=== PATIENT | male | born 1945 | race Caucasian/White ===

== ENCOUNTER 2019-11-15 16:57 | Inpatient (IN) | payer OTHER ==
[~2019-11-15] VITALS: Ht 177.8 cm; Wt 136.2 kg
[2019-11-15] MEDS ORDERED: ACIDOPHILUS1 EAC3 PO (17:15)
[2019-11-15] MEDS ORDERED: Atarax10 MG PO (17:15)
[2019-11-15] MEDS ORDERED: AMLO10 PO (17:15)
[2019-11-15] MEDS ORDERED: Aspirin EC81 MG PO (17:16)
[2019-11-15] MEDS ORDERED: ZYRTEC10 M2 PO (17:16)
[2019-11-15] MEDS ORDERED: ATOR80 PO (17:16)
[2019-11-15] MEDS ORDERED: CLOB.05TO (17:17)
[2019-11-15] MEDS ORDERED: Vitamin D2000 UNIT PO (17:17)
[2019-11-15] MEDS ORDERED: CYCL10 PO (17:18)
[2019-11-15] MEDS ORDERED: BENADRYL25 MG PO (17:19)
[2019-11-15] MEDS ORDERED: HYDR10 PO (17:20)
[2019-11-15] MEDS ORDERED: FLUT.05NI (17:20)
[2019-11-15] MEDS ORDERED: FURO40 PO (17:20)
[2019-11-15] MEDS ORDERED: Isosorbide Mono30 MG PO (17:21)
[2019-11-15] MEDS ORDERED: HYDR1TAB94 PO (17:21)
[2019-11-15] MEDS ORDERED: EUTHYROX88 MCG PO (17:22)
[2019-11-15] MEDS ORDERED: METO100ER PO (17:22)
[2019-11-15] MEDS ORDERED: CENTRUM SILVER1 EAC2 PO (17:22)
[2019-11-15] MEDS ORDERED: MAGNESIUM OXID500 MG PO (17:22)
[2019-11-15] MEDS ORDERED: OMEP20ER PO (17:23)
[2019-11-15] MEDS ORDERED: SODBIC650 PO (17:23)
[2019-11-15] MEDS ORDERED: DOCU100 PO (17:24)
[2019-11-15] MEDS ORDERED: TERA5 PO (17:24)
[2019-11-15 17:37] LABS: BASOPHILS ABSOLUTE AUTO 0.02 K/mm3 (0.00-0.23); BASOPHILS PERCENT AUTO 0 % (0-2); EOSINOPHILS ABSOLUTE AUTO 0.01 K/mm3 (0.00-0.68); EOSINOPHILS PERCENT AUTO 0 % (0-6); Hematocrit 32.4 % (37.0-53.0); Hemoglobin 10.4 g/dL (13.5-17.5); IMMATURE GRAN ABSOLUTE AUTO 0.08 K/mm3 (0.00-0.10); IMMATURE GRAN PERCENT AUTO 1 % (0-1); LYMPHOCYTES ABSOLUTE AUTO 0.59 K/mm3 (0.84-5.20); LYMPHOCYTES PERCENT AUTO 5 % (21-46); MONOCYTES ABSOLUTE AUTO 0.74 K/mm3 (0.16-1.47); MONOCYTES PERCENT AUTO 7 % (4-13); Mean Corpuscular HGB 29.3 pg (26.0-34.0); Mean Corpuscular HGB Conc 32.1 g/dL (31.5-36.5); Mean Corpuscular Volume 91 fL (80-100); Mean Platelet Volume 11.5 fL (9.1-12.4); NEUTROPHILS ABSOLUTE AUTO 9.86 K/mm3 (1.96-9.15); NEUTROPHILS PERCENT AUTO 87 % (41-73); Platelet Count 150 K/mm3 (150-400); RDW Coefficient Variation 12.8 % (11.7-14.2); RDW Standard Deviation 42.2 fL (35.1-46.3); Red Blood Cell Count 3.55 M/mm3 (4.30-5.90)
[2019-11-15 17:55] LABS: Alanine Aminotransfer (ALT/SGP 19 U/L (12-78); Albumin, Blood 3.2 g/dL (3.4-5.0); Albumin/Globulin Ratio 0.8 (0.8-1.8); Alk Phos 81 U/L (50-136); Anion Gap 9 mmol/L (6-16); Aspartate Aminotrans (AST/SGOT 8 U/L (12-37); Bilirubin, Total 0.3 mg/dL (0.1-1.0); Blood Urea Nitrogen 45 mg/dL (8-24); Bun/Creatinine Ratio 17.1 (12.0-20.0); CO2, Blood 21 mmol/L (21-32); Calcium, Blood 8.5 mg/dL (8.5-10.1); Chloride, Blood 112 mmol/L (98-108); Creatinine, Blood 2.63 mg/dL (0.60-1.20); Globulin, Blood 4.1 g/dL (2.2-4.0); Glomerular Filtration Rate 25 (60-); Glucose, Blood 162 mg/dL (70-99); Potassium, Blood 4.6 mmol/L (3.5-5.5); Sodium, Blood 142 mmol/L (136-145); Total Protein, Blood 7.3 g/dL (6.4-8.2); Troponin I <0.015 ng/mL (0.000-0.040)
[2019-11-15 19:06] LABS: Base Excess Venous -5.1 mmol/L; Bicarbonate Venous 20.7 mmol/L (24.0-30.0); PCO2 Venous 35.7 mmHg (38-42); PO2 Venous 99.8 mmHg (38-42); pH Blood Venous 7.36 (7.34-7.37)
[2019-11-15 19:34] LABS: Source, Urine Voided
[2019-11-15 19:38] LABS: Appearance, Urine Clear (Clear); Bilirubin, Urine Neg (Neg); Blood, Urine 1+ (Neg); Color, Urine Yellow (P-Yellow); Glucose Qualitative, Urine Neg (Neg); Ketones, Urine Neg (Neg); Leukocyte Esterase, Urine Neg (Neg); Nitrite, Urine Neg (Neg); Protein, Urine 4+ (Neg); Specific Gravity, Urine 1.015 (1.003-1.022); Urobilinogen, Urine NORM (Normal)
[2019-11-15 20:05] LABS: Bacteria Mod /hpf; Red Blood Cells, Urine 0-2 /hpf (0-2); Squamous Epithelial Cells Few /hpf (Few)
[2019-11-15 23:22] LABS: Influenza A Negative (NEGATIVE); Influenza B Negative (NEGATIVE)
[2019-11-16 04:25] LABS: BASOPHILS ABSOLUTE AUTO 0.02 K/mm3 (0.00-0.23); BASOPHILS PERCENT AUTO 0 % (0-2); EOSINOPHILS PERCENT AUTO 0 % (0-6); Hematocrit 29.9 % (37.0-53.0); Hemoglobin 9.4 g/dL (13.5-17.5); IMMATURE GRAN ABSOLUTE AUTO 0.16 K/mm3 (0.00-0.10); IMMATURE GRAN PERCENT AUTO 1 % (0-1); LYMPHOCYTES ABSOLUTE AUTO 0.55 K/mm3 (0.84-5.20); LYMPHOCYTES PERCENT AUTO 5 % (21-46); MONOCYTES ABSOLUTE AUTO 0.61 K/mm3 (0.16-1.47); MONOCYTES PERCENT AUTO 6 % (4-13); Mean Corpuscular HGB 28.9 pg (26.0-34.0); Mean Corpuscular HGB Conc 31.4 g/dL (31.5-36.5); Mean Corpuscular Volume 92 fL (80-100); Mean Platelet Volume 11.4 fL (9.1-12.4); NEUTROPHILS ABSOLUTE AUTO 9.71 K/mm3 (1.96-9.15); NEUTROPHILS PERCENT AUTO 88 % (41-73); Platelet Count 144 K/mm3 (150-400); RDW Coefficient Variation 13.2 % (11.7-14.2); RDW Standard Deviation 44.3 fL (35.1-46.3); Red Blood Cell Count 3.25 M/mm3 (4.30-5.90); White Blood Cell Count 11.05 K/mm3 (4.00-11.30)
[2019-11-16 04:50] LABS: Albumin, Blood 2.8 g/dL (3.4-5.0); Albumin/Globulin Ratio 0.7 (0.8-1.8); Bilirubin, Total 0.3 mg/dL (0.1-1.0); Bun/Creatinine Ratio 15.5 (12.0-20.0); Calcium, Blood 8.1 mg/dL (8.5-10.1); Creatinine, Blood 2.65 mg/dL (0.60-1.20); Globulin, Blood 4.1 g/dL (2.2-4.0); Potassium, Blood 4.5 mmol/L (3.5-5.5); Total Protein, Blood 6.9 g/dL (6.4-8.2)
--- NOTE | 2019-11-16 06:45 | NUR ---
SHIFT SUMMARY PT TRANSFERRED FROM ED AT BEGINNING OF SHIFT. PT IN SEVERE PAIN. PAIN MEDICATION GIVEN PER EMAR AND PHYSICIAN NOTIFIED FOR A CHANGE IN PAIN MEDICATION. PT REPORTS PAIN RELIEF WITH MEDICATIONS ORDERED. PT REMAINS FEBRILE WITH TEMP SPIKING UP TO 102. TYLENOL GIVEN PRN, TEMP LOWRED TO 98.6. BP STABLE. PT REPORTS NO CP OR PRESSURE. PT WORE CPAP T/O NIGHT. OXYGEN SATURATION REMAINED ABOVE 92%. PT ALERT AND ORIENTED. WILL CONTINUE TO MONITOR UNTIL REPORT GIVEN TO DAYSHIFT RN.
--- NOTE | 2019-11-16 08:30 | NUR ---
ASSUMED CARE OF PT AT 0700. REPORT FROM SARAI/ESTELITA BOONE. PT RESTING IN BED. A&OX 3. ANSWERS QUESTIONS APPROPRIATELY. FOLLOWS COMMANDS. PT C/O 12/05 BACK PAIN, STATES IT FEELS LIKE HIS CHRONIC PAIN, ONLY MORE SEVERE. MEDICATED PER EMAR ORDERED. PT WEARING HOME CPAP. INCREASED SOB AND WOB WHEN TAKEN OFF. PT SPEAKING IN SHORT SENTANCES. LABORED RESP. ENCOURAGED PT TO WEAR CPAP WHEN NOT EATING OR DRINKING. LUNGS DIMINISHED IN BASES. NON PRODUCTIVE COUGH. ABD ROUND, SOFT, NON TENDER. REDNESS AND WARMTH TO RLE. PPP. PT STATES THIS HAS BEEN GOING ON FOR "MONTHS." MEDICATED FOR FEVER c TYLENOL. VSS. WILL CONTINUE TO MONITOR.
--- NOTE | 2019-11-16 15:03 | NUR ---
STATUS CHANGE PT STATUS CHANGED TO MED c TELE THIS SHIFT. PT HAD ONE TEMP, 104.3, RESOLVED c TYLENOL 650 MG PO. MEDICATED PER EMAR FOR BACK PAIN. PT REPORTS ADEQUATE RELIEF. VSS. U/S TO R/O DVT TO RLE COMPLETE. DIET ADVANCED TO ADA. TOLERATED WELL. PT CONTINUES TO HAVE INCREASED WOB WHEN REPOSITIONING OR USING URINAL. RESTS COMFORTABLY WHEN NOT EXERTING SELF. REPORT TO SOPHY BOONE. PT TRANSFERRED TO MEDICAL FLOOR. ALL BELONGINGS SENT c PT.
--- NOTE | 2019-11-16 18:32 | NUR ---
SHIFT SUMMARY. PCU TRANSFER TO MEDICAL FLOOR TODAY. A&OX4, AWARE OF LIMITATIONS, USES URINAL INDEPENDENTLY. PT DENIES N/V. PT REPORTED CHRONIC BACK PAIN, PRN FENTANYL GIVEN, PT REPORTS SOME RELIEF. HEAT PAD OFFERED, PT ACCEPTED. PT REPORTS SOB WITH MINIMAL EXERTION, PT HAS BEEN IN BED SINCE TRANSFER. NO OTHER CHANGES OR CONCERNS.
--- NOTE | 2019-11-16 22:43 | NUR ---
FAMILY REQUEST CALL FROM PROVIDER PT DAUGHTER DAVID REQUESTING TO HAVE PROVIDER CALL HER WITH UPDATE AND ANSWER SOME CONCERNS.
--- NOTE | 2019-11-17 04:16 | NUR ---
MULTIPLE WIRE SAWYER SUMMARY PT BEGAN SHIFT W C/O BACK PAIN SO HE WAS GIVEN MEDICATION PER EMAR W BROUGHT MUCH RELIEF. PT HAS HAD CPAP ON ALL NIGHT W O2 SAT >89. PT HAD FEVER OF 101.9 AND WAS GIVEN TYLENOL AND BROUGHT IT DOWN. PT IS WEAK AND REQUIRES 2 PERSON ASSIST TO MOVE IN BED. PT SLEPT MOST OF THE NIGHT AND USED CALL LIGHT APPROPRIATELY FOR ASSISTAANCE TO USE URINAL.
[2019-11-17 05:00] LABS: BASOPHILS ABSOLUTE AUTO 0.02 K/mm3 (0.00-0.23); BASOPHILS PERCENT AUTO 0 % (0-2); Hematocrit 31.2 % (37.0-53.0); Hemoglobin 9.9 g/dL (13.5-17.5); LYMPHOCYTES ABSOLUTE AUTO 0.83 K/mm3 (0.84-5.20); LYMPHOCYTES PERCENT AUTO 9 % (21-46); MONOCYTES ABSOLUTE AUTO 0.53 K/mm3 (0.16-1.47); MONOCYTES PERCENT AUTO 6 % (4-13); Mean Corpuscular HGB 29.5 pg (26.0-34.0); Mean Corpuscular HGB Conc 31.7 g/dL (31.5-36.5); Mean Corpuscular Volume 93 fL (80-100); Mean Platelet Volume 11.7 fL (9.1-12.4); Platelet Count 142 K/mm3 (150-400); RDW Coefficient Variation 13.3 % (11.7-14.2); RDW Standard Deviation 45.5 fL (35.1-46.3); Red Blood Cell Count 3.36 M/mm3 (4.30-5.90); White Blood Cell Count 9.52 K/mm3 (4.00-11.30)
[2019-11-17 05:16] LABS: Albumin, Blood 2.7 g/dL (3.4-5.0); Anion Gap 7 mmol/L (6-16); Blood Urea Nitrogen 43 mg/dL (8-24); Bun/Creatinine Ratio 16.4 (12.0-20.0); CO2, Blood 23 mmol/L (21-32); Calcium, Blood 8.9 mg/dL (8.5-10.1); Chloride, Blood 109 mmol/L (98-108); Creatinine, Blood 2.62 mg/dL (0.60-1.20); Glomerular Filtration Rate 26 (60-); Glucose, Blood 126 mg/dL (70-99); Phosphorus, Blood 3.9 mg/dL (2.5-4.9); Potassium, Blood 4.4 mmol/L (3.5-5.5); Sodium, Blood 139 mmol/L (136-145)
[2019-11-17 05:30] LABS: EOSINOPHILS ABSOLUTE AUTO 0.02 K/mm3 (0.00-0.68); EOSINOPHILS PERCENT AUTO 0 % (0-6); IMMATURE GRAN ABSOLUTE AUTO 0.06 K/mm3 (0.00-0.10); IMMATURE GRAN PERCENT AUTO 1 % (0-1); NEUTROPHILS ABSOLUTE AUTO 8.06 K/mm3 (1.96-9.15); NEUTROPHILS PERCENT AUTO 85 % (41-73)
--- NOTE | 2019-11-17 19:35 | NUR ---
SHIFT SUMMARY. A&OX4, SBA TO BATHROOM WITH FWW. PT REPORTS SOB WITH EXERTION, ON RA, LUNGS CLEAR AND DIM IN THE BASES. PT WITH CHRONIC BACK PAIN, PT STARTED ON NORCO HOME DOSE WITH GOOD EFFECT. DENIES N/V. CONTINUES WITH REDNESS TO RLL, PT REPORTS MILD PAIN TO RLL WELL THAT IS MANAGED WITH CURRENT ORDERS. NO OTHER CHANGES OR CONCERNS.
[2019-11-18 04:59] LABS: BASOPHILS ABSOLUTE AUTO 0.02 K/mm3 (0.00-0.23); BASOPHILS PERCENT AUTO 0 % (0-2); EOSINOPHILS ABSOLUTE AUTO 0.15 K/mm3 (0.00-0.68); EOSINOPHILS PERCENT AUTO 2 % (0-6); Hematocrit 27.6 % (37.0-53.0); Hemoglobin 8.8 g/dL (13.5-17.5); IMMATURE GRAN ABSOLUTE AUTO 0.04 K/mm3 (0.00-0.10); IMMATURE GRAN PERCENT AUTO 1 % (0-1); LYMPHOCYTES ABSOLUTE AUTO 0.85 K/mm3 (0.84-5.20); LYMPHOCYTES PERCENT AUTO 13 % (21-46); MONOCYTES ABSOLUTE AUTO 0.64 K/mm3 (0.16-1.47); MONOCYTES PERCENT AUTO 10 % (4-13); Mean Corpuscular HGB 29.3 pg (26.0-34.0); Mean Corpuscular HGB Conc 31.9 g/dL (31.5-36.5); Mean Corpuscular Volume 92 fL (80-100); Mean Platelet Volume 11.7 fL (9.1-12.4); NEUTROPHILS ABSOLUTE AUTO 4.69 K/mm3 (1.96-9.15); NEUTROPHILS PERCENT AUTO 74 % (41-73); Platelet Count 140 K/mm3 (150-400); RDW Coefficient Variation 13.2 % (11.7-14.2); White Blood Cell Count 6.39 K/mm3 (4.00-11.30)
[2019-11-18 05:16] LABS: Albumin, Blood 2.4 g/dL (3.4-5.0); Anion Gap 9 mmol/L (6-16); Blood Urea Nitrogen 51 mg/dL (8-24); Bun/Creatinine Ratio 19.3 (12.0-20.0); CO2, Blood 22 mmol/L (21-32); Calcium, Blood 8.4 mg/dL (8.5-10.1); Chloride, Blood 109 mmol/L (98-108); Creatinine, Blood 2.64 mg/dL (0.60-1.20); Glomerular Filtration Rate 25 (60-); Glucose, Blood 121 mg/dL (70-99); Phosphorus, Blood 3.6 mg/dL (2.5-4.9); Potassium, Blood 3.9 mmol/L (3.5-5.5); Sodium, Blood 140 mmol/L (136-145)
--- NOTE | 2019-11-18 07:35 | NUR ---
SHIFT SUMMARY AOX4. VSS. DENIES DYSPNEA OR NAUSEA. REPORTS PAIN IN RLE, MEDICATED 1X c NORCO & PT REPORTED RELIEF. RLE IS RED, WARM TO TOUCH & HAS +2 EDEMA. WORE CPAP WHILE ASLEEP. PT TOOK SHOWER LAST NIGHT c MINIMAL ASSIST. CALL LIGHT IN REACH.
--- NOTE | 2019-11-18 18:23 | NUR ---
SHIFT SUMMARY PT IS AOX4. PT C/O FEELING HOT AND ROOM TEMP WAS TURNED DOWN. TEMP WAS ELEVATED AT 99.0 BUT IMPROVED WITH ROOM TEMP AND COLD TOWEL ON FOREHEAD. PT WORKED WITH PT TODAY. PT STATED PT STRUGGLED TO CATCH BREATH AND NEEDED TO REST AFTER TRANSFERRING. NO ACUTE CHANGES THIS SHIFT. ABX INFUSED X2 THIS SHIFT. PT IN BED, CALL LIGHT IN REACH, BED IN LOW POSITION.
--- NOTE | 2019-11-19 07:48 | NUR ---
SHIFT SUMMARY AOX4. VSS. TELE NSR c PVCS @72. DENIES N/V. REPORTED PAIN IN RLE, MEDICATED 1X c NORCO-STATES RELIEF. RLE IS WARM, RED, HAS +2 PITTING EDEMA. LUNGS SOUND DIM T/O. WORE CPAP T/O NIGHT. THIS AM PT STATES HE FEELS "SOB & WHEEZY" RR 18, SPO2 @96% ON RA. PT STATED HE USUALLY USES BREATHING TX PRN @HOME, HAD RT ASSESS PT & THEY SUGGESTED ALBUTEROL INH, NOTIFIED DR NORMAN & HE ORDERED ALBUTEROL INH Q4P. CALL LIGHT IN REACH.
--- NOTE | 2019-11-19 17:15 | NUR ---
SHIFT SUMMARY PT IS AOX4. PT IS SOB WITH EXERTION WHICH IMPROVES WITH REST. PT REPORTS OCCASIONAL PAIN IN THE RLE, BUT MOSTLY IF HE TRIES TO WALK ON THE EXTREMITY. PT HAS BEEN RESTING IN BED THIS SHIFT AND OCCASIONALY SITTING AT THE EDGE OF THE BED. PT HAS NOT EXHIBITED AN ELEVATED TEMP THIS SHIFT. OT ATTEMPTED TO WORK WITH PT THIS ISAI. PT DAUGHTER VISITED IN THE ROOM. TELE DC'D THIS SHIFT. RT WORKED WITH PT AND PROVIDED AN EHALATION DEVICE TO REMOVE ANY MUCOUS BUILD UP, BUT PT HAS HAD RARE COUGH AND NONPRODUCTIVE. RLE IS ELEVATED ON A PILLOW. PT IS IN BED, LOW POSITION, WITH CALL LIGHT IN REACH.
--- NOTE | 2019-11-19 19:05 | NUR ---
ASSUMED CARE RECEIVED REPORT FROM MELY SUE. ASSUMED CARE OF PT. RESTING COMFORTABLY AT THIS TIME, NO S/S ACUTE DISTRESS NOTED. REPORTS MINIMAL PAIN 3/10 TO RLE, STATES IT'S TOLERABLE LONG HE DOESN'T MOVE MUCH. DENIES NEEDS AT THIS TIME. CALL LIGHT, POSSESSIONS IN REACH, WILL CONTINUE TO MONITOR AND PROVIDE CARE NEEDED T/O NIGHT.
--- NOTE | 2019-11-20 04:21 | NUR ---
SHIFT SUMMARY PT ASLEEP AT THIS TIME, HAS HAD NO ACUTE EVENTS T/O NIGHT. O2 SATS STABLE ON CPAP, AFTER ADJUSTMENTS PER RT. RESPS E/U. PT UP TO BATHROOM WITH FWW/GB AND SBA T/O NIGHT, TOLERATES WELL, BUT MOVES SLOW D/T RLE SWELLING AND PAIN. PAIN MANAGED WITH MEDS PER EMAR, EFFECTIVE. PT DENIES NEEDS AT THIS TIME. CALL LIGHT, POSSESSIONS IN REACH. WILL CONTINUE TO MONITOR UNTIL DAY RN ASSUMES CARE.
--- NOTE | 2019-11-20 19:05 | NUR ---
ASSUMED CARE RECEIVED REPORT FROM MELY SUE. ASSUMED CARE OF PT. RESTING COMFORTABLY, NO S/S ACUTE DISTRESS NOTED. DENIES NEEDS AT THIS TIME, CALL LIGHT, POSSESSIONS IN REACH, WILL CONTINUE TO MONITOR.
--- NOTE | 2019-11-20 19:22 | NUR ---
SHIFT SUMMARY PT IS AOX4 AND PLEASANT. PT MEDICATED FOR PAIN X4 THIS SHIFT FOR RLE PAIN. PT SOB AFTER SHOWER DONE. PT/OT IN WITH PT TODAY WHO TOLERATED EXERCISES/STRETCHES WELL. PT POTENTIAL DC TOMORROW DEPENDING ON CELLULITIS IMPROVEMENT. NO ACUTE CHANGES THIS SHIFT. PT IN BED, LOW POSITION, CALL LIGHT IN REACH.
--- NOTE | 2019-11-21 07:34 | NUR ---
SHIFT SUMMARY PT HAS HAD NO ACUTE CHANGES IN CONDITION T/O NIGHT, VSS, O2 SATS STABLE ON CPAP. EDEMA TO RLE IMPROVING, REDNESS AND WARMTH DECREASING. PAIN MANAGED WITH MEDS PER EMAR X2. PT APPEARS COMFORTABLE AT THIS TIME. CALL LIGHT, POSSESSIONS IN REACH, REPORT GIVEN TO MELY MORTON.
[2019-11-21] MEDS ORDERED: NYSTOP15 GM TOP (11:13)
[2019-11-21] MEDS ORDERED: CEPH500 PO (11:20)
--- NOTE | 2019-11-21 12:53 | NUR ---
PT WOKE FOR SHIFT REPORT. RESTING QUIETLY ON C-PAP. CELLULITIS TO R LEG; REDNESS, SWELLING, AND PAIN. NORCO PRN NEEDED. PT UP WITH SBA USING FWW TO GO TO BTM. DENIED NEEDS. ASSISTED PT TO ELEVATE RLE ON 2 PILLOWS, PER PT REQUEST. DR HICKS IN TO SEE PT. 3 VIEW XRAY ORDERED FOR R FOOT. D/C ORDERS PLACED. [facility] TO [facility], PER PT REQUEST. PT DECLINED SCRIPT FOR NORCO, INFORMING DR HICKS THAT HE HAD SOME AT HOME ALREADY FROM [place]. DAUGHTER CALLED TO DISCUSS D/C ORDERS. REVIEWED AND DISCUSSED. DAUGHTER REQUESTED NORCO SCRIPT FROM DR HICKS. DISCUSSED AGAIN WITH DR HICKS. PT TO SEE PCP FOR F/U AND OBTAIN ADDITIONAL [facility]CO [facility] IF NEED[facility]. D/C ORDERS DISCUSSED WITH PT; VERBALIZED UNDERSTANDING. PT ABLE TO DRESS SELF. IV SITE D/C'D WNL'S. PT ASSISTED OUT TO DAUGHTERS CAR VIA W/C.
== END 2019-11-21 12:33 | disposition home or self-care (01) | DRG 872 ==
LOC: ER 16:57 → MEDS 21:44 → ERHOLD 21:44 → PCU 23:05 → MEDS 11-16 14:58
PROVIDERS: Emergency Medicine; Family Medicine; ADMIT Internal Medicine
DX: A41.9 Sepsis, unspecified organism (principal); L03.115 Cellulitis of right lower limb; N17.9 Acute kidney failure, unspecified; N18.4 Chronic kidney disease, stage 4 (severe); Z68.41 Body mass index [BMI] 40.0-44.9, adult; I12.9 Hypertensive chronic kidney disease with stage 1 through stage 4 chronic kidney disease, or unspecified chronic kidney disease; E11.22 Type 2 diabetes mellitus with diabetic chronic kidney disease; D63.1 Anemia in chronic kidney disease; D69.6 Thrombocytopenia, unspecified; E03.9 Hypothyroidism, unspecified; E66.01 Morbid (severe) obesity due to excess calories; E78.5 Hyperlipidemia, unspecified; J44.9 Chronic obstructive pulmonary disease, unspecified; K21.9 Gastro-esophageal reflux disease without esophagitis; M54.5 Low back pain; N40.0 Benign prostatic hyperplasia without lower urinary tract symptoms; R65.20 Severe sepsis without septic shock; R10.9 Unspecified abdominal pain; G47.33 Obstructive sleep apnea (adult) (pediatric); M19.071 Primary osteoarthritis, right ankle and foot; Z20.828 Contact with and (suspected) exposure to other viral communicable diseases
CPT/HCPCS: 36415; 71045; 73630; 74176; 76705; 80053; 80069; 81001; 82803; 82947; 83605; 83690; 83880; 84484; 85025; 87040; 87086; 87804; 93005; 93010; 93971; 94660; 94667; 94762; 96361; 96365; 96375; 96376; 97110; 97116; 97161; 97165; 97530; 99285-25; A9270; A9270-GY; J0690; J0696; J1170; J1644; J2405; J3010; J7030; J7050; U0002

== ENCOUNTER 2020-07-28 10:46 | Inpatient (IN) | payer OTHER, MEDICARE ==
[~2020-07-28] VITALS: Ht 177.8 cm; Wt 147.0 kg
[~2020-07-28 10:46] MED LIST: BENADRYL25 MG PO; CEPH500 PO; CLOB.05TO; CYCL10 PO; FLUT.05NI; FURO40 PO; HYDR1TAB94 PO; NYSTOP15 GM TOP
[2020-07-28 11:11] LABS: BASOPHILS ABSOLUTE AUTO 0.02 K/mm3 (0.00-0.23); BASOPHILS PERCENT AUTO 0 % (0-2); EOSINOPHILS PERCENT AUTO 1 % (0-6); Hematocrit 36.9 % (37.0-53.0); Hemoglobin 11.9 g/dL (13.5-17.5); IMMATURE GRAN ABSOLUTE AUTO 0.03 K/mm3 (0.00-0.10); IMMATURE GRAN PERCENT AUTO 0 % (0-1); LYMPHOCYTES ABSOLUTE AUTO 0.42 K/mm3 (0.84-5.20); LYMPHOCYTES PERCENT AUTO 4 % (21-46); MONOCYTES ABSOLUTE AUTO 0.63 K/mm3 (0.16-1.47); MONOCYTES PERCENT AUTO 6 % (4-13); Mean Corpuscular HGB 29.3 pg (26.0-34.0); Mean Corpuscular HGB Conc 32.2 g/dL (31.5-36.5); Mean Corpuscular Volume 91 fL (80-100); Mean Platelet Volume 10.9 fL (9.1-12.4); NEUTROPHILS ABSOLUTE AUTO 8.67 K/mm3 (1.96-9.15); NEUTROPHILS PERCENT AUTO 88 % (41-73); Platelet Count 192 K/mm3 (150-400); RDW Coefficient Variation 12.9 % (11.7-14.2); Red Blood Cell Count 4.06 M/mm3 (4.30-5.90); White Blood Cell Count 9.87 K/mm3 (4.00-11.30)
[2020-07-28 11:38] LABS: Albumin, Blood 3.5 g/dL (3.4-5.0); Albumin/Globulin Ratio 0.9 (0.8-1.8); Bilirubin, Total 0.4 mg/dL (0.1-1.0); Bun/Creatinine Ratio 21.2 (12.0-20.0); Calcium, Blood 8.5 mg/dL (8.5-10.1); Creatinine, Blood 3.07 mg/dL (0.60-1.20); Globulin, Blood 3.9 g/dL (2.2-4.0); Potassium, Blood 5.7 mmol/L (3.5-5.5); Total Protein, Blood 7.4 g/dL (6.4-8.2)
[2020-07-28 11:40] LABS: Source, Urine Catheter
[2020-07-28 11:46] LABS: Appearance, Urine Clear (Clear); Bilirubin, Urine Neg (Neg); Blood, Urine Neg (Neg); Color, Urine Yellow (P-Yellow); Glucose Qualitative, Urine Neg (Neg); Ketones, Urine Neg (Neg); Leukocyte Esterase, Urine Neg (Neg); Nitrite, Urine Neg (Neg); Protein, Urine 3+ (Neg); Specific Gravity, Urine 1.015 (1.003-1.022); Urobilinogen, Urine NORM (Normal)
[2020-07-28 11:57] LABS: Free Thyroxine 1.06 ng/dL (0.70-1.60); Thyroid Stimulating Hormone 2.17 uIU/mL (0.360-4.800)
[2020-07-28 12:39] LABS: Hyaline Casts 0-2 /lpf (0-2); Red Blood Cells, Urine 0-2 /hpf (0-2)
[2020-07-28 12:40] LABS: Bacteria Not Seen /hpf; Squamous Epithelial Cells Rare /hpf (Few)
[2020-07-28] MEDS ORDERED: FURO40 PO (13:04)
[2020-07-28] MEDS ORDERED: PRED20 PO (13:07)
[2020-07-28] MEDS ORDERED: OXYC5 PO (13:07)
[2020-07-28 14:20] LABS: SARS-Cov-2 (COVID-19) PCR, MMC NEGATIVE (NEGATIVE)
[2020-07-28 16:51] LABS: Magnesium, Blood 1.9 mg/dL (1.6-2.4); Phosphorus, Blood 3.4 mg/dL (2.5-4.9)
--- NOTE | 2020-07-28 17:59 | NUR ---
SUMMARY PT ADMITTED FROM THE ER FOR KIDNEY INJURY, PT ABLE TO STAND AND TRANSFER SELF FROM GURNEY TO THE BED, PT ABLE TO TAKE PILLS WHOLE WITH WATER, IS ABLE TO STAND AND WALK TO THE BATHROOM WITH THE WALKER AND MIN ASSIST, PT DENIES ANY PAIN OR SOB, FAINT EXP WHEEZE HEARD, PT REPORTS HE WEARS A CPAP AT NIGHT, VSS, WILL CONT TO MONITOR
[2020-07-29 02:03] LABS: Hemoglobin 10.1 g/dL (13.5-17.5); Mean Corpuscular HGB 28.9 pg (26.0-34.0); Mean Corpuscular HGB Conc 31.6 g/dL (31.5-36.5); Mean Corpuscular Volume 91 fL (80-100); Mean Platelet Volume 10.9 fL (9.1-12.4); Platelet Count 166 K/mm3 (150-400); RDW Coefficient Variation 13.2 % (11.7-14.2); RDW Standard Deviation 43.5 fL (35.1-46.3); White Blood Cell Count 10.86 K/mm3 (4.00-11.30)
[2020-07-29 02:21] LABS: Albumin, Blood 2.7 g/dL (3.4-5.0); Albumin/Globulin Ratio 0.8 (0.8-1.8); BAND PERCENT MAN 24 % (0-8); BASOPHILS PERCENT MAN 0 % (0-2); Bilirubin, Total 0.3 mg/dL (0.1-1.0); Bun/Creatinine Ratio 17.6 (12.0-20.0); Calcium, Blood 8.1 mg/dL (8.5-10.1); Creatinine, Blood 3.57 mg/dL (0.60-1.20); EOSINOPHILS PERCENT MAN 0 % (0-6); Globulin, Blood 3.5 g/dL (2.2-4.0); LYMPHOCYTES ABSOLUTE MAN 0.32 K/mm3 (0.84-5.20); LYMPHOCYTES PERCENT MAN 3 % (21-46); MONOCYTES ABSOLUTE MAN 0.32 K/mm3 (0.16-1.47); MONOCYTES PERCENT MAN 3 % (4-13); Magnesium, Blood 1.8 mg/dL (1.6-2.4); Potassium, Blood 5.3 mmol/L (3.5-5.5); SEG NEUTROPHILS PERCENT MAN 70 % (41-73); TOTAL CELLS COUNTED 100; Total Protein, Blood 6.2 g/dL (6.4-8.2)
--- NOTE | 2020-07-29 05:27 | NUR ---
SHIFT SUMMARY PT IS A 74 Y/O MALE, ADMITTED FOR ACUTE ON CHRONIC KIDNEY INJURY. HE IS A&O X 4, [place] [facility] [place] PT HAD AN ELEVATED K+ ON RECHECK AT 6.3. HOSPITALIST DR LAGOS WAS INFORMED. PT WAS GIVEN 5 UNIT REGULAR INSULIN, 1/2 AMP D50 AND 1 G CALCIUM GLUCONATE. K+ CAME DOWN TO 5.3. PT RAN FEVER DURING THE NIGHT AT 102.9, CAME DOWN TO 98.1 AFTER PRN TYLENOL. ALL OTHER VITALS STABLE. PT RECEIVING NS @ 125 ML/HR. NO OTHER ACUTE CHANGES IN PT CONDITION NOTED DURING THE NIGHT. WILL CONTINUE TO MONITOR AND TREAT PER EMAR UNTIL HAND OFF TO DAY SHIFT RN.
--- NOTE | 2020-07-29 14:36 | NUR ---
PT TRANSFERED TO PCU [address] FRANCOIS'S ORDER. CALL WAS PLACED TO RECIEVING NURSE PRIOR TO DISCHARGE. PT WAS COOPERATIVE OF CARE AND A ONE PERSON TO BEDSIDE COMMODE. PT TREATED FOR BACK PAIN PER EMAR. ALL BELONGINGS TAKEN WITH PT TO NEW ROOM.
[2020-07-29 15:48] LABS: CPK Creatine Kinase 116 U/L (39-308)
[2020-07-29 15:54] LABS: C-REACTIVE PROTEIN, EXT RANGE >19.000 mg/dL (0.000-0.300)
--- NOTE | 2020-07-29 17:24 | NUR ---
SHIFT SUMMARY NO ACUTE EVENTS SINCE ARRIVAL TO UNIT, VSS. PATIENT IS ALERT AND ORIENTED. WORKED WITH PT/OT. PATIENT WAS SHORT OF BREATH DURING THERAPY, THIS RN WAS CALLED BY OT D/T PATIENT'S O2 SATURATION DECREASING TO HIGH 80S WITH AMBULATION. 2L VIA NASAL CANNULA APPLIED, PATIENT REMAINED IN LOW 90S ON 2L NC FOR REST OF SHIFT. PATIENT COMPLAINS OF FEELING COLD, PATIENT APPEARS TO BE SHIVERING AT TIMES. BLANKET PROVIDED. NO FEVER NOTED SINCE ARRIVAL TO UNIT. PATIENT X1 ASSIST TO BEDSIDE COMMODE.
[2020-07-30 04:18] LABS: Hemoglobin 10.1 g/dL (13.5-17.5); Mean Corpuscular HGB 29.4 pg (26.0-34.0); Mean Corpuscular HGB Conc 31.6 g/dL (31.5-36.5); Mean Corpuscular Volume 93 fL (80-100); Platelet Count 151 K/mm3 (150-400); RDW Coefficient Variation 13.2 % (11.7-14.2); Red Blood Cell Count 3.43 M/mm3 (4.30-5.90); White Blood Cell Count 7.64 K/mm3 (4.00-11.30)
[2020-07-30 04:48] LABS: Bun/Creatinine Ratio 15.8 (12.0-20.0); Creatinine, Blood 3.87 mg/dL (0.60-1.20); Potassium, Blood 4.9 mmol/L (3.5-5.5)
--- NOTE | 2020-07-30 06:04 | NUR ---
PT HAD X2 EPISODES OF CHRONIC LOWER BACK PAIN. BECAME VERY ANXIOUS AND SOB. PAIN RELIEVED W/ PO ROXICODONE AND IV FENTANYL. REPOSITIONED Q2HRS. PT COOPERATIVE AND PLEASANT. SWALLOWS MEDS WITH NO DIFFICULTIES. VOIDING LARGE AMOUNTS OF URINE. DENIES QUESTIONS CONCERNS AT THIS TIME,
--- NOTE | 2020-07-30 16:15 | NUR ---
NO ACUTE EVENTS THIS SHIFT, VSS. PATIENT ALERT AND ORIENTED, CALLS APPRIOPRIATELY. PATIENT WAS UP OUT OF BED WITH SBA FOR LINE MANAGEMENT TO RECLINER FOR MEALS. WORKED WITH PT THIS SHIFT, UP WITH WALKER. PATIENT COMPLAINED OF LOW BACK PAIN, MEDICATED PER EMAR. PATIENT ON ROOM AIR TO 1 L VIA NASAL CANNULA TO MAINTAIN O2 SATS IN LOW 90S. REPORT GIVEN TO MICHAEL BOONE ON MEDICAL.
--- NOTE | 2020-07-30 16:56 | NUR ---
1620 PT ARRIVED TO UNIT FROM PCU, STAND PIVOT TRANSFER INTO BED. ORIENTED TO ROOM. VSS. PT REPORTS TOLERABLE PAIN IN HIS LOWER BACK AND LLE, 5/10 AT THIS TIME. LUNG SOUNDS CLEAR, S1 S2 HEARD. PT DENIES COUGH AND SOB. PT USING 1L O2 PRN, SATS 96% 1L VIA NC. LLE ERYTHEMA & SWELLING NOTICED, BORDERS OF THE REDNESS HAVE BEEN OUTLINED W/ A SURGICAL MARKER. EDEMA PRESENT IN BLE. PT DENIES N/V, N/T TO ALL EXTREMITIES. 1 TO 2 PERSON ASSIST, USES BEDSIDE COMMODE. TOLERATING REGULAR DIET. WILL CONTINUE TO MONITOR. CALL LIGHT WITHIN REACH. WILL REPORT TO ONCOMING RN.
--- NOTE | 2020-07-30 18:44 | NUR ---
SHIFT SUMMARY PT A&OX4, PLEASANT AND COOPERATIVE W/ CARE. VSS. NO ACUTE EVENTS. CELLULITIS TO L LOWER LEG, ERYTHEMA & SWELLING PRESENT. OUTLINE MARKED W/ SURGICAL MARKER. PT DENIES PAIN, N/V, N/T. PT RESTING IN BED, CALL LIGHT WITHIN REACH. WILL REPORT TO ONCOMING RN.
--- NOTE | 2020-07-31 04:04 | NUR ---
SHIFT SUMMARY PT RESTED WELL T/O NIGHT. AAOX4. CPAP IN PLACE WITH CONT PULSE OXIMETRY. DENIES PAIN/NAUSEA/EMESIS. THIS SHIFT. BLE SWELLING, ELEVATED. NO ACUTE CHANGES OVER NOC SHIFT. AWAITING LAB DRAW THIS AM. IVF PER ORDERS. PT CURRENTLY RESTING WELL IN BED WITH CALL LIGHT IN REACH.
[2020-07-31 05:31] LABS: Bun/Creatinine Ratio 16.3 (12.0-20.0); Calcium, Blood 7.9 mg/dL (8.5-10.1); Creatinine, Blood 3.8 mg/dL (0.60-1.20); Potassium, Blood 4.7 mmol/L (3.5-5.5)
--- NOTE | 2020-07-31 18:07 | NUR ---
SHIFT SUMMARY PT HAS BEEN A/O X4, SBA IN ROOM. PT WORKED WITH PHYSICAL THERAPY TODAY AND WAS ABLE TO AMBULATE TO BATHROOM WITH MINIMAL ASSISTANCE. PT SAT UP IN CHAIR FOR A FEW HOURS TODAY. HAS BEEN SITTING IN CHAIR OR ON EDGE OF BED FOR MEALS. PAIN MANAGED WITH PO PAIN MED PER ORDER. PT USING CPAP WHILE ASLEEP AND 2L O2 NC PRN WHILE AWAKE; BIOX IN USE DURING THE SHIFT. PT RESTING AT THIS TIME, CALL LIGHT IN REACH.
--- NOTE | 2020-08-01 05:19 | NUR ---
SHIFT SUMMARY PT RESTED WELL THIS NOC SHIFT. AAOX4. CPAP T/O NIGHT WITH 2L O2. X1 BREATHING TX POST AMBULATION TO RESTROOM. CELLULITIS TO LLE WITH INCREASED REDNESS FROM PREVIOUS SHIFT, ELEVATED ON PILLOWS WITH SOME DECREASE IN SWELLING FROM START OF SHIFT. GOOD PO INTAKE + URINE OUTPUT. IV ABX PER ORDERS. PT CURRENTLY RESTING IN BED WITH CALL LIGHT IN REACH.
[2020-08-01 08:55] LABS: Bun/Creatinine Ratio 16.2 (12.0-20.0); Calcium, Blood 8.6 mg/dL (8.5-10.1); Creatinine, Blood 3.28 mg/dL (0.60-1.20); Potassium, Blood 4.8 mmol/L (3.5-5.5)
--- NOTE | 2020-08-01 17:20 | NUR ---
SHIFT SUMMARY PT HAS BEEN A/O X4 THIS SHIFT. HE STATES HE DID NOT SLEEP WELL LAST NIGHT AND HAS BEEN TIRED TODAY. USING CPAP WHILE SLEEPING/NAPPING AND O2 PRN WHILE AWAKE. PT TOLERATING PO INTAKE, HOWEVER HE HAS HAD DECREASED APPETITE TODAY. DR. STRINGER CONSULTED THIS SHIFT. PAIN HAS BEEN MANAGED WITH OXY PER ORDER; PT STATES THIS HAS BEEN MANAGING PAIN TO HIS SATISFACTION. PT RESTING AT THIS TIME.
--- NOTE | 2020-08-01 18:23 | NUR ---
PER [facility], PT DOES NOT MEET REQUIREMENTS FOR ARANESP TODAY, HOWEVER LABS WILL BE CHECKED IN AM AND PT CAN RECEIVE IT TOMORROW IF NEEDED.
[2020-08-02 04:41] LABS: Hematocrit 28.2 % (37.0-53.0); Hemoglobin 9.1 g/dL (13.5-17.5)
--- NOTE | 2020-08-02 04:48 | NUR ---
SHIFT SUMMARY PT RESTED INFREQUENTLY T/O NIGHT. AAOX4/ANXIOUS AT TIMES. DISCOMFORT FROM LLE DECREASED WITH X1 PO ROXICODONE THIS SHIFT. DENIES NAUSEA/EMESIS. PT STARTED ON 1 LITER FLUID RESTRICTION YESTARDAY EVENING WITH 2MG IV BUMEX PER DR STRINGER. PT UP FREQUENTLY T/O NIGHT TO BSC. IV ABX PER ORDERS. PT CURRENTLY BACK TO BED WATCHING TV WITH CPAP IN PLACE, CALL LIGHT IN REACH.
[2020-08-02 05:04] LABS: Albumin, Blood 2.3 g/dL (3.4-5.0); Anion Gap 8 mmol/L (6-16); Blood Urea Nitrogen 46 mg/dL (8-24); Bun/Creatinine Ratio 15.6 (12.0-20.0); CO2, Blood 22 mmol/L (21-32); Calcium, Blood 8.3 mg/dL (8.5-10.1); Chloride, Blood 111 mmol/L (98-108); Creatinine, Blood 2.94 mg/dL (0.60-1.20); Glomerular Filtration Rate 22 (60-); Glucose, Blood 134 mg/dL (70-99); Phosphorus, Blood 3.4 mg/dL (2.5-4.9); Potassium, Blood 4.6 mmol/L (3.5-5.5); Sodium, Blood 141 mmol/L (136-145)
--- NOTE | 2020-08-02 17:04 | NUR ---
SUMMARY NO ACUTE CHANGES T/O SHIFT. PT WORKED W/THERAPY DURING SHIFT. SAT UP IN CHAIR TWICE. NOW BACK TO BED. PT BECOMES SOB W/EXERTION. LUNGS SOUNDED DIM IN BASES BUT OTHERWISE CLEAR. REDNESS TO LLE EXTENDED PAST OUTLINED AREA. PT REPORTS EDEMA AND PAIN HAVE BOTH IMPROVED TO LLE. PT ALTERNATES BETWEEN CPAP AND 02. SATS STABLE IN 90S ON CONTINUOUS PULSE OX. CALL LIGHT IN REACH.
--- NOTE | 2020-08-02 19:05 | NUR ---
REPORT GIVEN TO ONCOMING SHIFT.
[2020-08-03 05:12] LABS: Hematocrit 30.4 % (37.0-53.0); Hemoglobin 9.7 g/dL (13.5-17.5)
[2020-08-03 05:28] LABS: Albumin, Blood 2.3 g/dL (3.4-5.0); Anion Gap 7 mmol/L (6-16); Blood Urea Nitrogen 41 mg/dL (8-24); Bun/Creatinine Ratio 14.3 (12.0-20.0); CO2, Blood 24 mmol/L (21-32); Calcium, Blood 8.6 mg/dL (8.5-10.1); Chloride, Blood 112 mmol/L (98-108); Creatinine, Blood 2.87 mg/dL (0.60-1.20); Glomerular Filtration Rate 23 (60-); Glucose, Blood 139 mg/dL (70-99); Magnesium, Blood 1.9 mg/dL (1.6-2.4); Phosphorus, Blood 3.7 mg/dL (2.5-4.9); Potassium, Blood 4.4 mmol/L (3.5-5.5); Sodium, Blood 143 mmol/L (136-145)
--- NOTE | 2020-08-03 06:25 | NUR ---
SHIFT SUMMARY PT REMAINS A/O X4 T/O SHIFT, PT REPORTS FEELING COMFORTABLE, LLE REMAINS RED AND WARM TO THE TOUCH EXTENDING PAST PREVIOUSLY DRAWN LINES THOUGH PT REPORTS IT FEELING BETTER, PT REPORTS A SLIGHT INCREASE IN PAIN WHEN I LIFTED HIS LEG TO REPOSITION THE PILLOWS BACK UNDERNEATH IT THOUGH DENIES NEED FOR PAIN MEDS AT THAT TIME. NO ACUTE EVENTS THIS SHIFT. CALL LIGHT IN REACH, WILL CTM AND REPORT TO DAY RN.
--- NOTE | 2020-08-03 12:56 | NUR ---
Palliative care consult Lorenzo is a 74 year old with a history of morbid obesity, chronic back pain, CKD, HTN, NASREEN with CPAP use, GERD, hypothyroidism. He was admitted on 07/28/20 with sepsis secondary to LE cellulitis d/t group A strep. Lorenzo is . He is currently living alone as [facility] She has been there 2 years. He is hopeful that he will be able to visit with her when he is in rehab there. He has been tested for covid and has a new powerglide IV so that he can continue his daily IV antibiotics. He has two children who live 5-10 minutes away from his home and are helpful with doing the shopping and providing assistance for him as needed. He denies any symptoms at this time. He states his LLE has decreased in redness and swelling. His LLE remains with edema and redness. He is looking forward to going to rehab and then going back home. He enjoys motorcycles and panning for gold and is hopeful that he can improve enough to get back to doing those hobbies again. He states that he has spoken with his and children about his wishes in the past. He states that "They know what they want." At this time he wishes to remain a full code. [facility] He doesn't wish to fill out a POLST at this time. Will contact the [place] to obtain a copy of his AD. He has no further question or concerns. He is not happy about the fluid restriction he is on, however he is compliant with the restriction.
--- NOTE | 2020-08-03 16:21 | NUR ---
REPORT GIVEN TO SHERIF AT [facility].
[2020-08-03 16:53] LABS: SARS-Cov-2 (COVID-19) PCR, MMC NEGATIVE (NEGATIVE)
--- NOTE | 2020-08-03 17:10 | NUR ---
FAXED COVID RESULTS TO [facility].
--- NOTE | 2020-08-03 17:14 | NUR ---
SUMMARY NO ACUTE CHANGES T/O SHIFT. PT GETTING UP INDEPENDENTLY IN ROOM TO VOID. WORKED WITH THERAPY. NEW POWERGLIDE TO LUE THIS SHIFT. REPORT GIVEN TO SHERIF AT [facility] FAXED OVER. CALL LIGHT IN REACH.
--- NOTE | 2020-08-03 17:53 | NUR ---
PT LEFT UNIT IN WC W/TRANSPORT POSSESSIONS IN HAND. TRANSFER PACKET PROVIDED TO HEAD TEACHER.
== END 2020-08-03 17:54 | DRG 872 ==
LOC: ER 10:46 → SURS 14:33 → MEDS 14:33 → PCU 07-29 12:29 → SURS 07-30 16:14
PROVIDERS: Emergency Medicine; Internal Medicine; Internal Medicine Infectious Disease; Internal Medicine Nephrology; Nurse Practitioner Acute Care; ADMIT Internal Medicine
DX: A40.0 Sepsis due to streptococcus, group A (principal); Z68.41 Body mass index [BMI] 40.0-44.9, adult; K57.32 Diverticulitis of large intestine without perforation or abscess without bleeding; N17.9 Acute kidney failure, unspecified; L03.116 Cellulitis of left lower limb; Z66 Do not resuscitate; I12.0 Hypertensive chronic kidney disease with stage 5 chronic kidney disease or end stage renal disease; N25.81 Secondary hyperparathyroidism of renal origin; N18.4 Chronic kidney disease, stage 4 (severe); E87.5 Hyperkalemia; Z20.822 Contact with and (suspected) exposure to COVID-19; M10.9 Gout, unspecified; D63.1 Anemia in chronic kidney disease; N40.1 Benign prostatic hyperplasia with lower urinary tract symptoms; E66.01 Morbid (severe) obesity due to excess calories; E78.5 Hyperlipidemia, unspecified; E03.9 Hypothyroidism, unspecified; G47.33 Obstructive sleep apnea (adult) (pediatric); M54.5 Low back pain; G89.29 Other chronic pain; K21.9 Gastro-esophageal reflux disease without esophagitis; Z79.82 Long term (current) use of aspirin; Z79.899 Other long term (current) drug therapy; Z91.048 Other nonmedicinal substance allergy status
CPT/HCPCS: 36415; 71045; 74176; 80048; 80053; 80069; 81001; 82550; 83605; 83735; 84100; 84132; 84145; 84153; 84439; 84443; 85014; 85018; 85025; 85027; 85651; 86140; 87040; 87086; 87147; 93005; 93010; 94640; 94660; 94667; 94762; 96365; 96375; 97110; 97112; 97116; 97162; 97165; 97530; 97535; 99285-25; A9270; C1751; J0610; J0696; J1644; J1815; J2270; J2405; J2540; J3010; J7030; J7050; U0004

== ENCOUNTER 2020-09-09 12:01 | Emergency (ER) | payer OTHER, MEDICARE ==
[~2020-09-09] VITALS: Ht 175.3 cm; Wt 139.2 kg
[~2020-09-09 12:01] MED LIST changes: +OXYC5 PO; +PRED20 PO
[2020-09-09 12:50] LABS: BASOPHILS ABSOLUTE AUTO 0.02 K/mm3 (0.00-0.23); BASOPHILS PERCENT AUTO 0 % (0-2); EOSINOPHILS ABSOLUTE AUTO 0.13 K/mm3 (0.00-0.68); EOSINOPHILS PERCENT AUTO 3 % (0-6); Hematocrit 35.3 % (37.0-53.0); IMMATURE GRAN ABSOLUTE AUTO 0.02 K/mm3 (0.00-0.10); IMMATURE GRAN PERCENT AUTO 0 % (0-1); LYMPHOCYTES ABSOLUTE AUTO 1.07 K/mm3 (0.84-5.20); LYMPHOCYTES PERCENT AUTO 21 % (21-46); MONOCYTES ABSOLUTE AUTO 0.42 K/mm3 (0.16-1.47); MONOCYTES PERCENT AUTO 8 % (4-13); Mean Corpuscular HGB 28.7 pg (26.0-34.0); Mean Corpuscular HGB Conc 31.2 g/dL (31.5-36.5); Mean Corpuscular Volume 92 fL (80-100); Mean Platelet Volume 11.4 fL (9.1-12.4); NEUTROPHILS ABSOLUTE AUTO 3.52 K/mm3 (1.96-9.15); NEUTROPHILS PERCENT AUTO 68 % (41-73); Platelet Count 204 K/mm3 (150-400); RDW Coefficient Variation 13.9 % (11.7-14.2); RDW Standard Deviation 46.5 fL (35.1-46.3); Red Blood Cell Count 3.83 M/mm3 (4.30-5.90); White Blood Cell Count 5.18 K/mm3 (4.00-11.30)
[2020-09-09 13:04] LABS: Albumin, Blood 3.3 g/dL (3.4-5.0); Albumin/Globulin Ratio 0.8 (0.8-1.8); Bilirubin, Total 0.3 mg/dL (0.1-1.0); Bun/Creatinine Ratio 23.8 (12.0-20.0); Calcium, Blood 8.7 mg/dL (8.5-10.1); Creatinine, Blood 4.28 mg/dL (0.60-1.20); Globulin, Blood 4.2 g/dL (2.2-4.0); Potassium, Blood 5.3 mmol/L (3.5-5.5); Total Protein, Blood 7.5 g/dL (6.4-8.2)
[2020-09-09] MEDS ORDERED: ACET325 PO (14:05)
[2020-09-09] MEDS ORDERED: ALBU2.5V5 NEB (14:06)
[2020-09-09] MEDS ORDERED: ALBU90OI INH (14:06)
[2020-09-09] MEDS ORDERED: AMLO10 PO (14:08)
[2020-09-09] MEDS ORDERED: Aspirin EC81 MG PO (14:08)
[2020-09-09] MEDS ORDERED: ALLO100 PO (14:08)
[2020-09-09] MEDS ORDERED: ATOR80 PO (14:09)
[2020-09-09] MEDS ORDERED: Bumetanide2 MG PO (14:10)
[2020-09-09] MEDS ORDERED: CEPH250A PO (14:10)
[2020-09-09] MEDS ORDERED: ZYRTEC10 M2 PO (14:11)
[2020-09-09] MEDS ORDERED: Vitamin D2000 UNIT PO (14:11)
[2020-09-09] MEDS ORDERED: DOCU100 PO (14:12)
[2020-09-09] MEDS ORDERED: Flonase 0.05% N16 GM (14:13)
[2020-09-09] MEDS ORDERED: HYDR10 PO (14:13)
[2020-09-09] MEDS ORDERED: EUCERIN ADVANCE85 GM TOP (14:14)
[2020-09-09] MEDS ORDERED: Isosorbide Mono30 MG PO (14:15)
[2020-09-09] MEDS ORDERED: Atarax10 MG PO (14:15)
[2020-09-09] MEDS ORDERED: ACIDOPHILUS1 EAC3 PO (14:16)
[2020-09-09] MEDS ORDERED: MAGNESIUM OXID500 MG PO (14:17)
[2020-09-09] MEDS ORDERED: TOPROL XL200 MG PO (14:17)
[2020-09-09] MEDS ORDERED: EUTHYROX88 MCG PO (14:17)
[2020-09-09] MEDS ORDERED: ANTIFUNGAL POWD71 GM TOP (14:18)
[2020-09-09] MEDS ORDERED: CENTRUM SILVER1 EAC2 PO (14:19)
[2020-09-09] MEDS ORDERED: LIDO700A20 TD (14:19)
[2020-09-09] MEDS ORDERED: OMEP20ER PO (14:20)
[2020-09-09] MEDS ORDERED: SODBIC650 PO (14:20)
[2020-09-09] MEDS ORDERED: Terazosin HCl10 MG PO (14:21)
[2020-09-09] MEDS ORDERED: STIOLTO RESPIMAT4 G1 INH (14:21)
[2020-09-09] MEDS ORDERED: THERA GESIC TOP (14:23)
[2020-09-09] MEDS ORDERED: GLIP5 PO (14:33)
[2020-09-09 15:00] LABS: SARS-Cov-2 (COVID-19) PCR, MMC NEGATIVE (NEGATIVE)
--- NOTE | 2020-09-09 16:25 | NUR ---
pt from er to day surgery: pt surgery being moved to 09/10/20 at 1030 due to npo status pt ate chocolate bar. pt not admitted to day surgery pt just given instructions for surgery tomorrow. Pt going to dr Humphries's office before going home per daughter. pt verbalized understanding
[2020-09-10] MEDS ORDERED: OXYC5 (12:22)
== END 2020-09-09 15:51 | disposition other institution (70) ==
LOC: ER 12:01
PROVIDERS: Emergency Medicine; Surgery
DX: I12.9 Hypertensive chronic kidney disease with stage 1 through stage 4 chronic kidney disease, or unspecified chronic kidney disease (principal); N18.9 Chronic kidney disease, unspecified; E03.9 Hypothyroidism, unspecified; K21.9 Gastro-esophageal reflux disease without esophagitis
CPT/HCPCS: 36415; 80053; 85025; 96374; 96375; 99284-25; J2405; J3010; U0004

== ENCOUNTER 2020-09-10 10:41 | Day surgery (SDC) | payer OTHER, MEDICARE ==
[~2020-09-10] VITALS: Ht 175.3 cm; Wt 139.1 kg
[~2020-09-10 10:41] MED LIST changes: +ACET325 PO; +ACIDOPHILUS1 EAC3 PO; +ALBU2.5V5 NEB; +ALBU90OI INH; +ALLO100 PO; +AMLO10 PO; +ANTIFUNGAL POWD71 GM TOP; +ATOR80 PO; +Aspirin EC81 MG PO; +Atarax10 MG PO; +Bumetanide2 MG PO; +CENTRUM SILVER1 EAC2 PO; +CEPH250A PO; +DOCU100 PO; +EUCERIN ADVANCE85 GM TOP; +EUTHYROX88 MCG PO; +Flonase 0.05% N16 GM; +GLIP5 PO; +HYDR10 PO; +Isosorbide Mono30 MG PO; +LIDO700A20 TD; +MAGNESIUM OXID500 MG PO; +OMEP20ER PO; +SODBIC650 PO; +STIOLTO RESPIMAT4 G1 INH; +THERA GESIC TOP; +TOPROL XL200 MG PO; +Terazosin HCl10 MG PO; +Vitamin D2000 UNIT PO; +ZYRTEC10 M2 PO
--- NOTE | 2020-09-10 11:33 | NUR ---
Ambulatory in Day Surgery History, Chart, Medications and Allergies reviewed before start of procedure. Lungs clear T/O to Auscultation. Patient confirms NPO status and agrees with scheduled surgery. Pre-Op teaching done. Pt verbalizes understanding. Patient States Post-Procedure ride home has been arranged.
[2020-09-10] MEDS ORDERED: OXYC5 (12:22)
--- NOTE | 2020-09-10 15:24 | NUR ---
PT DENIES PAIN OR NAUSEA p FOOD AND DRINK. R CHEST WALL DRESSING. X 2 CDI. PT REPORTS HE "BELIEVED DIALYSIS WAS TODAY". [facility] CALLED, NO DIALYSIS SCHEDULED. DR. STRINGER CALLED PER PATIENT REQUEST. GIVEN VERBAL INSTRUCTIONS FOR LABS. DR. CARTER CALLED AND AGREES TO REQUEST. DAUGHTER CONTACTS DR. STRINGER, REPORTS COMFORTABLE WAITING FOR DIALYSIS UNTIL NEXT WEEK. PT AGREES, CONTINUES TO DENY COMPLAINTS. TAYLOR, COSMETICS DEMONSTRATOR AT BEDSIDE. LABS DRAWN AND TAKEN TO LAB. IV DC'D, CATH INTACT AND PRESSURE DRESSING APPLIED. GIVEN RX AND DC INSTRUCTIONS TO PATIENT AND DAUGHTER. BOTH VERBALIZES AN UNDERSTANDING OF INSTRUCTIONS s QUESTIONS. PT ABLE TO STAND AND DRESS SELF s DIFFICULTY. TRANSFERS TO . OTD IN NAD VIA TO [facility] HOME.
[2020-09-11 09:20] LABS: HBSAG SCREEN Negative (Negative); HEP A AB, IGM Negative (Negative); HEP B CORE AB, IGM Negative (Negative); HEP C VIRUS AB <0.1 (0.0-0.9)
== END 2020-09-10 22:43 | disposition home or self-care (01) ==
LOC: ORSCMMR 10:41
PROVIDERS: Surgery
PROC: B5131ZA Fluoroscopy of Right Jugular Veins using Low Osmolar Contrast, Guidance (ICD-10-PCS; principal; 2020-09-10 10:30)
PROC: 05HM33Z Insertion of Infusion Device into Right Internal Jugular Vein, Percutaneous Approach (ICD-10-PCS; principal; 2020-09-10 10:30)
DX: N18.6 End stage renal disease (principal); I10 Essential (primary) hypertension; I25.10 Atherosclerotic heart disease of native coronary artery without angina pectoris; G47.33 Obstructive sleep apnea (adult) (pediatric); Z87.891 Personal history of nicotine dependence; E11.9 Type 2 diabetes mellitus without complications; E66.01 Morbid (severe) obesity due to excess calories; Z68.42 Body mass index [BMI] 45.0-49.9, adult; Z79.899 Other long term (current) drug therapy
CPT/HCPCS: 36415; 80074; 82947; 84132; C1750; J0690; J1100; J1644; J2250; J2405; J2704; J2710; J3010; J7030

== ENCOUNTER 2020-09-23 12:50 | Emergency (ER) | payer OTHER ==
[~2020-09-23] VITALS: Ht 175.3 cm; Wt 140.6 kg
[2020-09-23 13:19] LABS: BASOPHILS ABSOLUTE AUTO 0.02 K/mm3 (0.00-0.23); BASOPHILS PERCENT AUTO 0 % (0-2); EOSINOPHILS ABSOLUTE AUTO 0.18 K/mm3 (0.00-0.68); EOSINOPHILS PERCENT AUTO 3 % (0-6); Hematocrit 32.6 % (37.0-53.0); Hemoglobin 10.4 g/dL (13.5-17.5); IMMATURE GRAN ABSOLUTE AUTO 0.02 K/mm3 (0.00-0.10); IMMATURE GRAN PERCENT AUTO 0 % (0-1); LYMPHOCYTES ABSOLUTE AUTO 0.99 K/mm3 (0.84-5.20); LYMPHOCYTES PERCENT AUTO 19 % (21-46); MONOCYTES ABSOLUTE AUTO 0.38 K/mm3 (0.16-1.47); MONOCYTES PERCENT AUTO 7 % (4-13); Mean Corpuscular HGB 29.1 pg (26.0-34.0); Mean Corpuscular HGB Conc 31.9 g/dL (31.5-36.5); Mean Corpuscular Volume 91 fL (80-100); Mean Platelet Volume 11.1 fL (9.1-12.4); NEUTROPHILS ABSOLUTE AUTO 3.75 K/mm3 (1.96-9.15); NEUTROPHILS PERCENT AUTO 70 % (41-73); Platelet Count 146 K/mm3 (150-400); RDW Coefficient Variation 13.1 % (11.7-14.2); RDW Standard Deviation 43.9 fL (35.1-46.3); Red Blood Cell Count 3.58 M/mm3 (4.30-5.90); White Blood Cell Count 5.34 K/mm3 (4.00-11.30)
[2020-09-23 13:59] LABS: Albumin, Blood 3.1 g/dL (3.4-5.0); Albumin/Globulin Ratio 0.7 (0.8-1.8); Bilirubin, Total 0.2 mg/dL (0.1-1.0); Bun/Creatinine Ratio 16.1 (12.0-20.0); Calcium, Blood 8.6 mg/dL (8.5-10.1); Creatinine, Blood 3.79 mg/dL (0.60-1.20); Globulin, Blood 4.2 g/dL (2.2-4.0); Potassium, Blood 4.9 mmol/L (3.5-5.5); Total Protein, Blood 7.3 g/dL (6.4-8.2)
== END 2020-09-23 16:58 | disposition home or self-care (01) ==
LOC: ER 12:50
PROVIDERS: Physician Assistant
DX: T82.41XA Breakdown (mechanical) of vascular dialysis catheter, initial encounter (principal); I10 Essential (primary) hypertension; E78.5 Hyperlipidemia, unspecified; K21.9 Gastro-esophageal reflux disease without esophagitis; Z91.09 Other allergy status, other than to drugs and biological substances; Z79.899 Other long term (current) drug therapy
CPT/HCPCS: 36415; 36593; 71045; 80053; 85025; 99284-25; J2997

== ENCOUNTER 2020-10-01 16:53 | Observation (INO) | payer OTHER ==
[~2020-10-01] VITALS: Ht 175.3 cm; Wt 140.5 kg
[2020-10-01 17:34] LABS: BASOPHILS ABSOLUTE AUTO 0.02 K/mm3 (0.00-0.23); BASOPHILS PERCENT AUTO 0 % (0-2); EOSINOPHILS ABSOLUTE AUTO 0.22 K/mm3 (0.00-0.68); EOSINOPHILS PERCENT AUTO 4 % (0-6); Hematocrit 32.9 % (37.0-53.0); Hemoglobin 10.2 g/dL (13.5-17.5); IMMATURE GRAN ABSOLUTE AUTO 0.02 K/mm3 (0.00-0.10); IMMATURE GRAN PERCENT AUTO 0 % (0-1); LYMPHOCYTES ABSOLUTE AUTO 1.43 K/mm3 (0.84-5.20); LYMPHOCYTES PERCENT AUTO 26 % (21-46); MONOCYTES ABSOLUTE AUTO 0.49 K/mm3 (0.16-1.47); MONOCYTES PERCENT AUTO 9 % (4-13); Mean Corpuscular HGB 28.8 pg (26.0-34.0); Mean Corpuscular Volume 93 fL (80-100); Mean Platelet Volume 10.7 fL (9.1-12.4); NEUTROPHILS ABSOLUTE AUTO 3.29 K/mm3 (1.96-9.15); NEUTROPHILS PERCENT AUTO 60 % (41-73); NRBC ABSOLUTE 0.04 K/mm3 (0.00-0.02); NRBC Auto 0.7 /100 WBC (0.0-0.2); Platelet Count 183 K/mm3 (150-400); RDW Coefficient Variation 13.3 % (11.7-14.2); RDW Standard Deviation 45.2 fL (35.1-46.3); Red Blood Cell Count 3.54 M/mm3 (4.30-5.90); White Blood Cell Count 5.47 K/mm3 (4.00-11.30)
[2020-10-01 17:51] LABS: Albumin, Blood 3.3 g/dL (3.4-5.0); Albumin/Globulin Ratio 0.8 (0.8-1.8); Bilirubin, Total 0.3 mg/dL (0.1-1.0); Bun/Creatinine Ratio 12.5 (12.0-20.0); Calcium, Blood 8.8 mg/dL (8.5-10.1); Creatinine, Blood 5.35 mg/dL (0.60-1.20); Globulin, Blood 4.1 g/dL (2.2-4.0); Potassium, Blood 5.1 mmol/L (3.5-5.5); Total Protein, Blood 7.4 g/dL (6.4-8.2)
--- NOTE | 2020-10-01 23:09 | NUR ---
PT ARRIVED TO FLOOR, FROM ER. PT A/O, VSS. LUNGS CLEAR, DIM IN BASES. PERMACATH PRESENT IN LEFT CHEST WALL, DRESSING LOOSELY IN PLACE, MILD REDNESS NOTED NEAR INSERTION SITE. PT DENIES PAIN AT SITE. PT REP CHRONIC BACK PAIN, IS REQUESTING PAIN MEDS. DR LAWRENCE NOTIFIED. PT REP HE USES CPAP W/5LO2 BLEED IN FOR SLEEP, RT NOTIFIED OR ORDERS. PT ORIENTED TO ROOM/CALL LIGHT, PLAN FOR NPO AT MIDNIGHT FOR SURGERY IN AM.
--- NOTE | 2020-10-01 23:13 | NUR ---
COVID: PT REP HE HAS RECEIVED BOTH COVID VACCINES FROM THE [facility]. THIS RN CONTACTED THE [facility] IN ATTEMPT TO OBTAIN VAC RECORDS. I WAS TOLD THAT [facility] MANAGES RECORDS AND WOULD NOT BE AVAILALBE UNTIL SUNDAY AM.
[2020-10-02 04:54] LABS: Albumin, Blood 2.9 g/dL (3.4-5.0); Anion Gap 12 mmol/L (6-16); Blood Urea Nitrogen 69 mg/dL (8-24); Bun/Creatinine Ratio 12.9 (12.0-20.0); CO2, Blood 19 mmol/L (21-32); Calcium, Blood 8.4 mg/dL (8.5-10.1); Chloride, Blood 109 mmol/L (98-108); Creatinine, Blood 5.34 mg/dL (0.60-1.20); Glomerular Filtration Rate 11 (60-); Glucose, Blood 132 mg/dL (70-99); Phosphorus, Blood 6.2 mg/dL (2.5-4.9); Potassium, Blood 4.5 mmol/L (3.5-5.5); Sodium, Blood 140 mmol/L (136-145)
--- NOTE | 2020-10-02 06:18 | NUR ---
PT VSS SINCE ARRIVING TO FLOOR. DRESSING TO PERMACATH WNL. PT MED FOR CHRONIC BACK PAIN X1. PT UP OOB W/SBA, MIKE SHORT DISTANCE WELL, NEEDS MOTORIZED SCOOTER FOR DISTANCES. PT NPO POST MIDNIGHT FOR PLAN FOR PERACATH REPLACEMENT AND POSSIBLY DIALYSIS AFTER.
--- NOTE | 2020-10-02 07:00 | NUR ---
RECVD REPORT FROM PREVIOUS RN MORRIS. PT LYING IN BED SLEEPING, BED IN LOWEST POSITION, BED RAILS UP X 2, CALL LIGHT WITHIN REACH
--- NOTE | 2020-10-02 10:26 | NUR ---
10/02/20 1026 Frank Forman PT GIVEN ANCEF 3 GRAMS IVPB AT [address] CHAU REQUEST.
--- NOTE | 2020-10-02 13:45 | NUR ---
provided pt and pt's daughter with discharge instructions, which they state understanding of. peripheral iv removed wnl. pt's belongings with pt. pt transporting himself to awaiting vehicle via his powered chair
== END 2020-10-02 13:45 | disposition home or self-care (01) ==
LOC: ER 16:53 → ERHOLD 16:54 → SURS 16:54
PROVIDERS: Family Medicine; Physician Assistant; Surgery; ADMIT Internal Medicine
PROC: B518ZZA Fluoroscopy of Superior Vena Cava, Guidance (ICD-10-PCS; principal; 2020-10-02 08:00)
PROC: 02HV33Z Insertion of Infusion Device into Superior Vena Cava, Percutaneous Approach (ICD-10-PCS; principal; 2020-10-02 08:00)
DX: T82.41XA Breakdown (mechanical) of vascular dialysis catheter, initial encounter (principal); I12.0 Hypertensive chronic kidney disease with stage 5 chronic kidney disease or end stage renal disease; N18.6 End stage renal disease; E78.5 Hyperlipidemia, unspecified; E03.9 Hypothyroidism, unspecified; J44.9 Chronic obstructive pulmonary disease, unspecified; G47.33 Obstructive sleep apnea (adult) (pediatric); K21.9 Gastro-esophageal reflux disease without esophagitis; N40.0 Benign prostatic hyperplasia without lower urinary tract symptoms; E66.9 Obesity, unspecified; Z68.42 Body mass index [BMI] 45.0-49.9, adult; Z99.2 Dependence on renal dialysis; Z87.891 Personal history of nicotine dependence; Y82.8 Other medical devices associated with adverse incidents
CPT/HCPCS: 36415; 80053; 80069; 85025; 93005; 93010; 94640; 94760; 99285-25; A9270; C1752; G0378; J0690; J1100; J1644; J2250; J2370; J2405; J2704; J3010

== ENCOUNTER 2020-12-27 19:09 | Emergency (ER) | payer OTHER ==
[~2020-12-27] VITALS: Ht 175.3 cm; Wt 113.4 kg
[2020-12-27 21:44] LABS: Influenza A, PCR NEGATIVE (NEGATIVE); Influenza B, PCR NEGATIVE (NEGATIVE); Resp Syncytial Virus, PCR NEGATIVE (NEGATIVE); SARS-Cov-2 (COVID-19) PCR, MMC NEGATIVE (NEGATIVE)
== END 2020-12-27 21:26 | disposition home or self-care (01) ==
LOC: ER 19:09
PROVIDERS: Student in an Organized Health Care Education/Training Program
DX: T82.42XA Displacement of vascular dialysis catheter, initial encounter (principal); N18.6 End stage renal disease; Z91.048 Other nonmedicinal substance allergy status; Z79.82 Long term (current) use of aspirin; Z79.899 Other long term (current) drug therapy
CPT/HCPCS: 0241U; 71045; 82947; 93005; 93010; 99285-25

== ENCOUNTER 2021-03-18 09:09 | Day surgery (SDC) | payer OTHER ==
[~2021-03-18] VITALS: Ht 177.8 cm; Wt 134.0 kg
--- NOTE | 2021-03-18 15:09 | NUR ---
PT DRESSED, IV DC'D INTACT, R FEM VAHE GROIN SITE STABLE, PERMACATH SITE STABLE, PT DC'D BY HIS HOVERROUND, DAUGHTER OUTSIDE TO DRIVE PT TO [facility] FOR DIAlYSIS, ERMIAS BOONE AT [facility] NOTIFIED PT ON THE WAY NOW
== END 2021-03-18 15:15 | disposition home or self-care (01) ==
LOC: MHTC 09:09
DX: T82.41XA Breakdown (mechanical) of vascular dialysis catheter, initial encounter (principal); I12.0 Hypertensive chronic kidney disease with stage 5 chronic kidney disease or end stage renal disease; N18.6 End stage renal disease; E03.9 Hypothyroidism, unspecified; E66.01 Morbid (severe) obesity due to excess calories; E78.5 Hyperlipidemia, unspecified; Z99.2 Dependence on renal dialysis; Z87.891 Personal history of nicotine dependence; Y84.1 Kidney dialysis as the cause of abnormal reaction of the patient, or of later complication, without mention of misadventure at the time of the procedure
CPT/HCPCS: 76937; 99152; 99153; C1750; C1769; C1773; C1876; J1644; J2250; J3010; J7030; J7040; Q9967

== ENCOUNTER 2021-04-18 06:18 | Day surgery (SDC) | payer OTHER ==
[~2021-04-18] VITALS: Ht 175.3 cm; Wt 134.0 kg
--- NOTE | 2021-04-18 08:40 | NUR ---
TO [facility] [place]OM [place]IA [place]. PERMACATH DRESSING DRY AND INTACT.
--- NOTE | 2021-04-18 09:00 | NUR ---
DISCHARGE INSTRUCTIONS GIVEN WITH VERBAL AND WRITTEN UNDERSTANDING.
--- NOTE | 2021-04-18 09:10 | NUR ---
DRESSED FOR DISCHARGE. DRESSING DRY AND INTACT.
--- NOTE | 2021-04-18 09:15 | NUR ---
DISCHARGED HOME VIA WHEELCHAIR. GOING TO DUALYSIS.
== END 2021-04-18 09:20 | disposition home or self-care (01) ==
LOC: MHTC 06:18
DX: I12.0 Hypertensive chronic kidney disease with stage 5 chronic kidney disease or end stage renal disease (principal); N18.6 End stage renal disease; E66.01 Morbid (severe) obesity due to excess calories; E78.5 Hyperlipidemia, unspecified; K21.9 Gastro-esophageal reflux disease without esophagitis; E03.9 Hypothyroidism, unspecified; Z87.891 Personal history of nicotine dependence
CPT/HCPCS: 99152; C1725; C1750; C1769; J1644; J3010; J7040; Q9967

== ENCOUNTER 2021-05-25 08:13 | Emergency (ER) | payer OTHER ==
[~2021-05-25] VITALS: Ht 177.8 cm; Wt 136.1 kg
[2021-05-25 10:25] LABS: Calcium, Ionized (POC) 0.96 mmol/L (1.10-1.46); Chloride (POC) 97 mmol/L (98-108); Creatinine (POC) 7.3 mg/dL (0.8-1.3); Glucose (ISTAT POC) 129 mg/dL (70-99); Hemoglobin (POC) 10.9 g/dL (13.5-17.5); Sodium (POC) 139 mmol/L (135-148); Total CO2 (POC) 31 mmol/L (21-32)
[2021-05-26] MEDS ORDERED: CEPH250A PO (10:38)
[2021-05-26] MEDS ORDERED: Doxycycline Mo100 M1 PO (12:53)
== END 2021-05-25 11:07 | disposition home or self-care (01) ==
LOC: ER 08:13
PROVIDERS: Physician Assistant
DX: T82.42XA Displacement of vascular dialysis catheter, initial encounter (principal); I10 Essential (primary) hypertension; E78.5 Hyperlipidemia, unspecified; E03.9 Hypothyroidism, unspecified; K21.9 Gastro-esophageal reflux disease without esophagitis; Z87.891 Personal history of nicotine dependence; Z79.899 Other long term (current) drug therapy
CPT/HCPCS: 36415; 80047; 85014; 99284

== ENCOUNTER 2021-05-26 09:11 | Day surgery (SDC) | payer OTHER ==
[~2021-05-26] VITALS: Ht 175.3 cm; Wt 136.0 kg
[2021-05-26 10:13] LABS: BASOPHILS ABSOLUTE AUTO 0.02 K/mm3 (0.00-0.23); BASOPHILS PERCENT AUTO 1 % (0-2); EOSINOPHILS ABSOLUTE AUTO 0.38 K/mm3 (0.00-0.68); EOSINOPHILS PERCENT AUTO 10 % (0-6); Hematocrit 33.4 % (37.0-53.0); Hemoglobin 10.4 g/dL (13.5-17.5); IMMATURE GRAN ABSOLUTE AUTO 0.01 K/mm3 (0.00-0.10); IMMATURE GRAN PERCENT AUTO 0 % (0-1); LYMPHOCYTES PERCENT AUTO 31 % (21-46); MONOCYTES ABSOLUTE AUTO 0.42 K/mm3 (0.16-1.47); MONOCYTES PERCENT AUTO 11 % (4-13); Mean Corpuscular HGB 32.2 pg (26.0-34.0); Mean Corpuscular HGB Conc 31.1 g/dL (31.5-36.5); Mean Corpuscular Volume 103 fL (80-100); Mean Platelet Volume 10.7 fL (9.1-12.4); NEUTROPHILS ABSOLUTE AUTO 1.87 K/mm3 (1.96-9.15); NEUTROPHILS PERCENT AUTO 48 % (41-73); Platelet Count 147 K/mm3 (150-400); RDW Coefficient Variation 13.3 % (11.7-14.2); RDW Standard Deviation 50.4 fL (35.1-46.3); Red Blood Cell Count 3.23 M/mm3 (4.30-5.90)
[2021-05-26] MEDS ORDERED: CEPH250A PO (10:38)
[2021-05-26] MEDS ORDERED: Doxycycline Mo100 M1 PO (12:53)
--- NOTE | 2021-05-26 13:42 | NUR ---
PT DRESSED SELF WITH NO COMPLICATIONS. NO BLEEDING OOZING OR HEMATOMA NOTED AT NEW PERM CATH SITE. PT DENIES ANY PAIN. NEW ABX RX CALLED INTO [facility]. IV DCD WITH CATH INTACT. VSS. PT STATES HIS UNDERSTANDING OF DC AND SITE CARE INSTRUCTIONS AND DENIES ANY QUESTIONS OR CONCERNS. PT TAKEN TO EXIT VIA WHEELCHAIR BY RN WHERE DAUGHTER WAS WAITING WITH VEHICLE.
== END 2021-05-26 13:30 | disposition home or self-care (01) ==
LOC: MHTC 09:11
PROVIDERS: Internal Medicine
DX: T82.41XA Breakdown (mechanical) of vascular dialysis catheter, initial encounter (principal); Y71.8 Miscellaneous cardiovascular devices associated with adverse incidents, not elsewhere classified; I12.0 Hypertensive chronic kidney disease with stage 5 chronic kidney disease or end stage renal disease; N18.6 End stage renal disease; K21.9 Gastro-esophageal reflux disease without esophagitis; E78.5 Hyperlipidemia, unspecified; E03.9 Hypothyroidism, unspecified; G47.33 Obstructive sleep apnea (adult) (pediatric); E66.01 Morbid (severe) obesity due to excess calories; Z79.899 Other long term (current) drug therapy
CPT/HCPCS: 36005; 36558; 75860; 76937; 77001; 85025; 99152; 99153; C1750; C1769; C1894; J0690; J1644; J2250; J3010; J7040; Q9967

== ENCOUNTER 2021-06-29 14:15 | Observation (INO) | payer OTHER ==
[~2021-06-29] VITALS: Ht 175.3 cm; Wt 138.7 kg
[~2021-06-29 14:15] MED LIST changes: +Doxycycline Mo100 M1 PO; +MIDO5 PO
[2021-06-29 15:31] LABS: BASOPHILS ABSOLUTE AUTO 0.02 K/mm3 (0.00-0.23); BASOPHILS PERCENT AUTO 1 % (0-2); EOSINOPHILS ABSOLUTE AUTO 0.21 K/mm3 (0.00-0.68); EOSINOPHILS PERCENT AUTO 6 % (0-6); Hematocrit 29.1 % (37.0-53.0); Hemoglobin 9.2 g/dL (13.5-17.5); IMMATURE GRAN ABSOLUTE AUTO 0.01 K/mm3 (0.00-0.10); IMMATURE GRAN PERCENT AUTO 0 % (0-1); LYMPHOCYTES ABSOLUTE AUTO 0.79 K/mm3 (0.84-5.20); LYMPHOCYTES PERCENT AUTO 21 % (21-46); MONOCYTES ABSOLUTE AUTO 0.46 K/mm3 (0.16-1.47); MONOCYTES PERCENT AUTO 12 % (4-13); Mean Corpuscular HGB Conc 31.6 g/dL (31.5-36.5); Mean Corpuscular Volume 104 fL (80-100); NEUTROPHILS ABSOLUTE AUTO 2.23 K/mm3 (1.96-9.15); NEUTROPHILS PERCENT AUTO 60 % (41-73); Platelet Count 155 K/mm3 (150-400); RDW Coefficient Variation 13.2 % (11.7-14.2); RDW Standard Deviation 49.7 fL (35.1-46.3); Red Blood Cell Count 2.79 M/mm3 (4.30-5.90); White Blood Cell Count 3.72 K/mm3 (4.00-11.30)
[2021-06-29 16:05] LABS: Albumin, Blood 3.4 g/dL (3.4-5.0); Albumin/Globulin Ratio 0.9 (0.8-1.8); Bilirubin, Total 0.5 mg/dL (0.1-1.0); Bun/Creatinine Ratio 6.4 (12.0-20.0); Calcium, Blood 8.5 mg/dL (8.5-10.1); Creatinine, Blood 4.87 mg/dL (0.60-1.20); Globulin, Blood 3.8 g/dL (2.2-4.0); Magnesium, Blood 2.4 mg/dL (1.6-2.4); Potassium, Blood 4.1 mmol/L (3.5-5.5); Thyroid Stimulating Hormone 2.38 uIU/mL (0.360-4.800); Total Protein, Blood 7.2 g/dL (6.4-8.2)
[2021-06-30 05:55] LABS: Albumin, Blood 3.1 g/dL (3.4-5.0); Anion Gap 6 mmol/L (6-16); Blood Urea Nitrogen 42 mg/dL (8-24); Bun/Creatinine Ratio 6.6 (12.0-20.0); CO2, Blood 36 mmol/L (21-32); Calcium, Blood 7.9 mg/dL (8.5-10.1); Chloride, Blood 100 mmol/L (98-108); Creatinine, Blood 6.36 mg/dL (0.60-1.20); Glomerular Filtration Rate 9 (60-); Glucose, Blood 104 mg/dL (70-99); Magnesium, Blood 2.6 mg/dL (1.6-2.4); Phosphorus, Blood 5.1 mg/dL (2.5-4.9); Potassium, Blood 5.3 mmol/L (3.5-5.5); Sodium, Blood 142 mmol/L (136-145)
--- NOTE | 2021-06-30 06:16 | NUR ---
SHIFT SUMMARY PATIENT ALERT AND ORIENTED. HAD NO COMPLAINTS OF PAIN OR SHORTNESS OF BREATH. NO ACUTE ISSUES NOTED OVERNIGHT. CALL LIGHT WITHIN REACH REPORT GIVEN TO ONCOMING RN.
[2021-06-30 07:41] LABS: BASOPHILS ABSOLUTE AUTO 0.02 K/mm3 (0.00-0.23); BASOPHILS PERCENT AUTO 1 % (0-2); EOSINOPHILS ABSOLUTE AUTO 0.24 K/mm3 (0.00-0.68); EOSINOPHILS PERCENT AUTO 6 % (0-6); Hematocrit 30.9 % (37.0-53.0); Hemoglobin 9.5 g/dL (13.5-17.5); IMMATURE GRAN ABSOLUTE AUTO 0.02 K/mm3 (0.00-0.10); IMMATURE GRAN PERCENT AUTO 1 % (0-1); LYMPHOCYTES ABSOLUTE AUTO 1.08 K/mm3 (0.84-5.20); LYMPHOCYTES PERCENT AUTO 26 % (21-46); MONOCYTES ABSOLUTE AUTO 0.53 K/mm3 (0.16-1.47); MONOCYTES PERCENT AUTO 13 % (4-13); Mean Corpuscular HGB 32.8 pg (26.0-34.0); Mean Corpuscular HGB Conc 30.7 g/dL (31.5-36.5); Mean Corpuscular Volume 107 fL (80-100); Mean Platelet Volume 10.8 fL (9.1-12.4); NEUTROPHILS ABSOLUTE AUTO 2.23 K/mm3 (1.96-9.15); NEUTROPHILS PERCENT AUTO 54 % (41-73); Platelet Count 131 K/mm3 (150-400); RDW Coefficient Variation 13.4 % (11.7-14.2); RDW Standard Deviation 52.3 fL (35.1-46.3); White Blood Cell Count 4.12 K/mm3 (4.00-11.30)
--- NOTE | 2021-06-30 09:36 | NUR ---
pt sitting up on the side of the bed for breakfast and working with PT. complains of left ankle hurting when he puts weight on it per PT, a/ox3, pleasant and cooperative with care, follows commands well, denies pain at this time, lung sare dim t/o with exp wheeze noted to right base, on r/a, using cpap at hs, tele in place running sr per monitor, see strip, trace edema noted around ankles, ppp+1, cap refill <3sec, vs stable, afebrile, iv site is clear and patent, btx4, abd very large, reports he makes very little urine, but bowels are doing ok, skin has a few scabs but no open wounds, maew, weak, adelfo, call light in reach.
[2021-06-30] MEDS ORDERED: GABA300 PO (15:37)
--- NOTE | 2021-06-30 18:24 | NUR ---
pt was able to ambulate to the bathroom without diff, pain is better managed this evening, no acute changes this shift, no syncope, call light in reach.
[2021-07-01 04:38] LABS: Hemoglobin 8.9 g/dL (13.5-17.5)
[2021-07-01 05:08] LABS: Albumin, Blood 3.2 g/dL (3.4-5.0); Anion Gap 4 mmol/L (6-16); Blood Urea Nitrogen 39 mg/dL (8-24); Bun/Creatinine Ratio 6.4 (12.0-20.0); CO2, Blood 36 mmol/L (21-32); Chloride, Blood 100 mmol/L (98-108); Creatinine, Blood 6.11 mg/dL (0.60-1.20); Glomerular Filtration Rate 9 (60-); Glucose, Blood 101 mg/dL (70-99); Magnesium, Blood 2.7 mg/dL (1.6-2.4); Phosphorus, Blood 4.9 mg/dL (2.5-4.9); Potassium, Blood 4.6 mmol/L (3.5-5.5); Sodium, Blood 140 mmol/L (136-145)
--- NOTE | 2021-07-01 06:32 | NUR ---
SHIFT SUMMARY PATIENT ALERT AND ORIENTED. MEDICATED PER EMAR FOR PAIN. NO ACUTE ISSUES NOTED OVERNIGHT. CALL LIGHT WITHIN REACH. REPORT GIVEN TO ONCOMING RN.
--- NOTE | 2021-07-01 17:58 | NUR ---
SHIFT SUMMARY PATIENT ALERT AND ORIENTED X4, FORGETFUL AT TIMES. PLEASANT AND COOPERATIVE WITH CARE. PATIENT'S MIDODRINE HELD PER PARAMETERS THIS SHIFT. ORTHOSTATIC BLOODPRESSURES DONE AND CHARTED. NO SYNCOPAL EVENTS NOTED. NO INSULIN COVERAGE PER SLIDING SCALE NEEDED TODAY. MEDICATED X2 FOR PAIN PER MAR. DR. CARVAJAL CONSULTED THE PATIENT AT BEDSIDE. PATIENT WILL BE GETTING AN ANKLE BRACE AT SOME POINT.PATIENT USES CPAP AT NIGHT. 2LPM OF OXYGEN NEEDED TO MAINTAIN SATURATION ABOVE 90% PERM CATH IN RIGHT UPPER CHEST WALL. OLD FISTULA LEFT ARM. BLOOD PRESSURES ONLY IN RIGHT ARM. NORMAL SINUS RHYTHM ON TELE. 1 SBA TO THE BATHROOM. PATIENT CALLS APPROPRIATELY. BED IN LOWEST POSITION. CALL LIGHT WITHIN REACH. PATIENT MAY POSSIBLY DISCHARGE TO [facility].
[2021-07-02 04:39] LABS: Hematocrit 28.9 % (37.0-53.0); Hemoglobin 8.9 g/dL (13.5-17.5)
[2021-07-02 04:56] LABS: Albumin, Blood 3.1 g/dL (3.4-5.0); Anion Gap 7 mmol/L (6-16); Blood Urea Nitrogen 55 mg/dL (8-24); Bun/Creatinine Ratio 7.7 (12.0-20.0); CO2, Blood 32 mmol/L (21-32); Chloride, Blood 100 mmol/L (98-108); Creatinine, Blood 7.13 mg/dL (0.60-1.20); Glomerular Filtration Rate 8 (60-); Glucose, Blood 94 mg/dL (70-99); Magnesium, Blood 2.5 mg/dL (1.6-2.4); Phosphorus, Blood 5.6 mg/dL (2.5-4.9); Potassium, Blood 4.9 mmol/L (3.5-5.5); Sodium, Blood 139 mmol/L (136-145)
--- NOTE | 2021-07-02 07:22 | NUR ---
SHIFT SUMMARY PT IS A 75 Y/O MALE, ADMITTED FOR SYNCOPE. HE IS A&O X 4, FORGETFUL AT TIMES, 1PA C FWW TO BATHROOM. TELE SHOWED NSR IN THE 80S. CURRENTLY ON 2L O2 VIA NC DURING THE DAY, AND CPAP WITH 5L BLEED IN AT NIGHT. NO C/O ACUTE PAIN, NAUSEA OR SOB. VITAL SIGNS STABLE. NO ACUTE CHANGES IN PT CONDITION NOTED DURING THE NIGHT. REPORT GIVEN TO ONCOMING RN.
--- NOTE | 2021-07-02 16:39 | NUR ---
SHIFT SUMMARY PATIENT ALERT AND ORIENTED X4, PLEASANT AND COOPERATIVE WITH CARE. SYSTOLIC PRESSURE IN 180'S AT THE BEGINNING OF THE SHIFT. MD HICKS NOTIFIED. PATIENT WENT TO DIALYSIS TODAY, AND TOLERATED IT WELL. SYSTOLIC PRESSURES HAVE SINCE COME DOWN. MIDODRINE GIVEN X1 TODAY. PATIENT WAS MEDICATED X2 FOR BACK PAIN, IT APPEARS TO BE WORKING WELL FOR THEM. BLOOD GLUCOSE LESS THAN 150 THIS SHIFT. NO INSULIN PER SLIDING SCALE NEEDED. NO EVENTS ON TELE. 2LPM OF 02 NEEDED. CPAP USED WHILE PATIENT IS SLEEPING. BED IN LOWEST POSITION AND CALL LIGHT WITHIN REACH.
[2021-07-03] MEDS ORDERED: ALBU3IS INH (02:23)
[2021-07-03] MEDS ORDERED: CYCL10 PO (02:33)
[2021-07-03] MEDS ORDERED: DICLOFENAC SOD100 G1 TOP (02:35)
[2021-07-03] MEDS ORDERED: Atarax10 MG PO (02:36)
[2021-07-03] MEDS ORDERED: LIDO700A20 TOP (02:38)
[2021-07-03] MEDS ORDERED: NUTRITIONAL SUPPLEME PO (02:41)
[2021-07-03] MEDS ORDERED: STIOLTO RESPIMAT4 G1 INH (02:42)
[2021-07-03] MEDS ORDERED: RENAL VITAMIN0.8 MG PO (02:43)
[2021-07-03] MEDS ORDERED: Percocet 5-3251 EACH PO (02:43)
[2021-07-03] MEDS ORDERED: SINUS RINSE (02:45)
[2021-07-03] MEDS ORDERED: THERA-GESIC TOP (02:46)
[2021-07-03 05:36] LABS: Hemoglobin 9.1 g/dL (13.5-17.5)
[2021-07-03 05:55] LABS: Albumin, Blood 3.2 g/dL (3.4-5.0); Anion Gap 8 mmol/L (6-16); Blood Urea Nitrogen 49 mg/dL (8-24); CO2, Blood 29 mmol/L (21-32); Calcium, Blood 8.3 mg/dL (8.5-10.1); Chloride, Blood 102 mmol/L (98-108); Creatinine, Blood 6.16 mg/dL (0.60-1.20); Glomerular Filtration Rate 9 (60-); Glucose, Blood 106 mg/dL (70-99); Magnesium, Blood 2.3 mg/dL (1.6-2.4); Phosphorus, Blood 4.9 mg/dL (2.5-4.9); Potassium, Blood 5.3 mmol/L (3.5-5.5); Sodium, Blood 139 mmol/L (136-145)
--- NOTE | 2021-07-03 06:47 | NUR ---
SHIFT SUMMARY PT IS A 75 Y/O MALE, ADMITTED FOR [facility]NCOPE. HE IS A&O X 4, 1PA C FWW TO THE BATHROOM. TELE SHOWED NSR IN THE 70S. VITAL SIGNS STABLE. PT IS ON 2L VIA NC DURING THE DAY, AND CPAP WITH 5L BLEED IN DURING THE NIGHT. NO C/O ACUTE PAIN, NAUSEA OR SOB. NO ACUTE CHANGES IN PT CONDITION NOTED DURING THE NIGHT. WILL CONTINUE TO MONITOR AND TREAT PER EMAR UNTIL HAND OFF TO DAY SHIFT RN.
--- NOTE | 2021-07-03 18:17 | NUR ---
SHIFT SUMMARY PATIENT ALERT AND ORIENTED X4, PLEASANT AND COOPERATIVE WITH CARE. PATIENT HAD DIALYSIS TODAY. PATIENT ON 100ML FLUID RESTRICTION PER DR. STRINGER. MEDICATED X2 FOR BACK PAIN. PATIENT IS CURRENTLY ON RA. THIS NURSE SPOKE WITH [facility] TODAY, THEY WILL BE IN TOMORROW TO FIT THE PATIENT FOR AN ANKLE BRACE. NO EVENTS ON TELE THIS SHIFT. RUNNING SINUS RHYTHM. PATIENT 1 ASSIST TO THE BATHROOM WITH WALKER AND GAITBELT. PATIENT CURRENTLY RESTING. NO ACUTE CHANGES, BED IN LOWEST POSITION AND CALL LIGHT WITHIN REACH. POSSIBLE DISCHARGE TOMORROW TO SNF.
[2021-07-04 05:21] LABS: Hematocrit 30.4 % (37.0-53.0); Hemoglobin 9.4 g/dL (13.5-17.5)
[2021-07-04 05:54] LABS: Albumin, Blood 3.3 g/dL (3.4-5.0); Anion Gap 6 mmol/L (6-16); Blood Urea Nitrogen 45 mg/dL (8-24); Bun/Creatinine Ratio 7.4 (12.0-20.0); CO2, Blood 33 mmol/L (21-32); Calcium, Blood 8.5 mg/dL (8.5-10.1); Chloride, Blood 99 mmol/L (98-108); Creatinine, Blood 6.12 mg/dL (0.60-1.20); Glomerular Filtration Rate 9 (60-); Glucose, Blood 105 mg/dL (70-99); Magnesium, Blood 2.4 mg/dL (1.6-2.4); Phosphorus, Blood 5.8 mg/dL (2.5-4.9); Sodium, Blood 138 mmol/L (136-145)
--- NOTE | 2021-07-04 06:01 | NUR ---
SHIFT SUMMARY PT IS A 75 Y/O MALE, ADMITTED FOR SYNCOPE. HE IS A&O X 4, SBA TO THE BATHROOM. PT IS ON 2L VIA NC, CPAP WITH 5L BLEED IN DURING THE NIGHT. VITAL SIGNS STABLE. NO C/O ACUTE PAIN, NAUSEA OR SOB. NO ACUTE CHANGES IN PT CONDITION NOTED DURING THE NIGHT. WILL CONTINUE TO MONITOR AND TREAT PER EMAR UNTIL HAND OFF TO DAY SHIFT RN.
--- NOTE | 2021-07-04 18:39 | NUR ---
SUMMARY- PT ALERT AND ORIENTED X3. USES CALL LIGHT. SBA TO BATHROOM WITH WALKER, TOLERATES ACTIVITY WELL. USES OXYGEN 2L PRN OCC SOB. LUNGS DIM IN BASES. HAD DIALYSIS THIS AM 09-1230. TOOK OFF 2.5L. BP ELEVATED AFTER H.D. HELD MIDIDRINE. GAVE BUMEX AFTER DIALYSIS, BP DROPPED, ADMIN MIDIDRINE. MEDICATED FOR CHRONIC LOW BACK PAIN WITH OXY, STATED RELEIF OF PAIN. TOLERATING FOOD AND FLUIDS. HAD BM TODAY. SPOKE WITH DAUGHTER DAVID TODAY FILLED IN ON PLAN FOR DC TO SNF, AWAITING BED AT [facility]. BLOOD SUGARS STABLE
--- NOTE | 2021-07-05 06:44 | NUR ---
75 year old Male with multiple falls at home & lt ankle fracture has lt ankle brace to stabilize fracture when up. Labile BP with 90s up to 185 systolic. He has NASREEN on CPAP with home o2 bleed in at noc. Had dialysis yesterday. DR Humphries in to see PT. Medicated with oxycodone 10 mg x 1 & tylenol 650 mg po x [address] Humphries in to see PT this AM, planning dialysis.
[2021-07-05 07:34] LABS: Hematocrit 29.2 % (37.0-53.0); Hemoglobin 9.4 g/dL (13.5-17.5)
[2021-07-05 07:57] LABS: Albumin, Blood 3.3 g/dL (3.4-5.0); Anion Gap 6 mmol/L (6-16); Blood Urea Nitrogen 47 mg/dL (8-24); Bun/Creatinine Ratio 6.9 (12.0-20.0); CO2, Blood 33 mmol/L (21-32); Calcium, Blood 8.5 mg/dL (8.5-10.1); Chloride, Blood 102 mmol/L (98-108); Creatinine, Blood 6.86 mg/dL (0.60-1.20); Glomerular Filtration Rate 8 (60-); Glucose, Blood 107 mg/dL (70-99); Magnesium, Blood 2.6 mg/dL (1.6-2.4); Phosphorus, Blood 5.5 mg/dL (2.5-4.9); Potassium, Blood 4.8 mmol/L (3.5-5.5); Sodium, Blood 141 mmol/L (136-145)
[2021-07-05 16:18] LABS: Influenza A, PCR NEGATIVE (NEGATIVE); Influenza B, PCR NEGATIVE (NEGATIVE); Resp Syncytial Virus, PCR NEGATIVE (NEGATIVE); SARS-Cov-2 (COVID-19) PCR, MMC NEGATIVE (NEGATIVE)
--- NOTE | 2021-07-05 17:55 | NUR ---
PT DISCHARGED TO [facility] VIA WHEELCHAIR [place]. CALLED REPORT TO SUMA. PT'S BELONGINGS SENT WITH HIM. HARD COPY FOR OXYCODONE WRITTEN AND FORGOTTEN, RN WILL DRIVE TO REHAB AFTER SHIFT.
== END 2021-07-05 17:25 ==
LOC: ER 14:15 → MEDS 20:38
PROVIDERS: Emergency Medicine; Internal Medicine; Internal Medicine Nephrology; ADMIT Family Medicine
DX: I95.1 Orthostatic hypotension (principal); I12.0 Hypertensive chronic kidney disease with stage 5 chronic kidney disease or end stage renal disease; N18.6 End stage renal disease; E11.22 Type 2 diabetes mellitus with diabetic chronic kidney disease; E78.00 Pure hypercholesterolemia, unspecified; E03.9 Hypothyroidism, unspecified; K21.9 Gastro-esophageal reflux disease without esophagitis; S82.65XA Nondisplaced fracture of lateral malleolus of left fibula, initial encounter for closed fracture; G47.30 Sleep apnea, unspecified; W19.XXXA Unspecified fall, initial encounter; Z79.4 Long term (current) use of insulin; Z79.82 Long term (current) use of aspirin; Z79.84 Long term (current) use of oral hypoglycemic drugs; Z99.2 Dependence on renal dialysis; E87.5 Hyperkalemia; D63.1 Anemia in chronic kidney disease; E83.39 Other disorders of phosphorus metabolism; E66.01 Morbid (severe) obesity due to excess calories; G47.33 Obstructive sleep apnea (adult) (pediatric); E11.42 Type 2 diabetes mellitus with diabetic polyneuropathy; Z20.822 Contact with and (suspected) exposure to COVID-19
CPT/HCPCS: 0241U; 36415; 70450; 71045; 73700; 80053; 80069; 82947; 83735; 84443; 84484; 85014; 85018; 85025; 93005; 93010; 93306; 94660; 94762; 97116; 97162; 97165; 97530; 97535; 99285-25; A9270; G0257; J0881; J1644; J1815

== ENCOUNTER 2021-07-06 21:06 | Emergency (ER) | payer OTHER ==
[~2021-07-06] VITALS: Ht 177.8 cm; Wt 137.0 kg
[~2021-07-06 21:06] MED LIST changes: +ALBU3IS INH; +DICLOFENAC SOD100 G1 TOP; +GABA300 PO; +LIDO700A20 TOP; +NUTRITIONAL SUPPLEME PO; +Percocet 5-3251 EACH PO; +RENAL VITAMIN0.8 MG PO; +SINUS RINSE; +THERA-GESIC TOP
== END 2021-07-06 23:22 | disposition home or self-care (01) ==
LOC: ER 21:06
DX: Z49.01 Encounter for fitting and adjustment of extracorporeal dialysis catheter (principal); I12.0 Hypertensive chronic kidney disease with stage 5 chronic kidney disease or end stage renal disease; E11.22 Type 2 diabetes mellitus with diabetic chronic kidney disease; N18.6 End stage renal disease; E03.9 Hypothyroidism, unspecified; Z79.82 Long term (current) use of aspirin; Z79.899 Other long term (current) drug therapy
CPT/HCPCS: 71045

== ENCOUNTER 2021-07-16 10:10 | Emergency (ER) | payer OTHER ==
[~2021-07-16] VITALS: Ht 175.3 cm; Wt 135.2 kg
[2021-07-16 11:25] LABS: BASOPHILS ABSOLUTE AUTO 0.01 K/mm3 (0.00-0.23); BASOPHILS PERCENT AUTO 0 % (0-2); EOSINOPHILS ABSOLUTE AUTO 0.19 K/mm3 (0.00-0.68); EOSINOPHILS PERCENT AUTO 6 % (0-6); Hematocrit 29.5 % (37.0-53.0); Hemoglobin 9.2 g/dL (13.5-17.5); IMMATURE GRAN ABSOLUTE AUTO 0.01 K/mm3 (0.00-0.10); IMMATURE GRAN PERCENT AUTO 0 % (0-1); LYMPHOCYTES ABSOLUTE AUTO 0.62 K/mm3 (0.84-5.20); LYMPHOCYTES PERCENT AUTO 20 % (21-46); MONOCYTES ABSOLUTE AUTO 0.43 K/mm3 (0.16-1.47); MONOCYTES PERCENT AUTO 14 % (4-13); Mean Corpuscular HGB 32.6 pg (26.0-34.0); Mean Corpuscular HGB Conc 31.2 g/dL (31.5-36.5); Mean Corpuscular Volume 105 fL (80-100); Mean Platelet Volume 10.4 fL (9.1-12.4); NEUTROPHILS PERCENT AUTO 60 % (41-73); Platelet Count 173 K/mm3 (150-400); RDW Coefficient Variation 14.2 % (11.7-14.2); RDW Standard Deviation 53.7 fL (35.1-46.3); Red Blood Cell Count 2.82 M/mm3 (4.30-5.90); White Blood Cell Count 3.16 K/mm3 (4.00-11.30)
[2021-07-16 11:41] LABS: Albumin, Blood 3.3 g/dL (3.4-5.0); Albumin/Globulin Ratio 0.9 (0.8-1.8); Bilirubin, Total 0.4 mg/dL (0.1-1.0); Bun/Creatinine Ratio 4.9 (12.0-20.0); Calcium, Blood 8.4 mg/dL (8.5-10.1); Creatinine, Blood 6.74 mg/dL (0.60-1.20); Globulin, Blood 3.7 g/dL (2.2-4.0); Potassium, Blood 4.8 mmol/L (3.5-5.5)
[2021-07-16] MEDS ORDERED: WARF5 PO (13:53)
[2021-07-16] MEDS ORDERED: Lovenox120 MG/0.8 SC (13:53)
[2021-07-16] MEDS ORDERED: ELIQUIS5 M3 PO (13:59)
[2021-07-16 14:11] LABS: International Normalized Ratio 1.04; Prothrombin Time Results 10.9 Sec (9.7-11.5)
== END 2021-07-16 15:37 | disposition home or self-care (01) ==
LOC: ER 10:10
PROVIDERS: Physician Assistant
DX: I82.C11 Acute embolism and thrombosis of right internal jugular vein (principal); I12.0 Hypertensive chronic kidney disease with stage 5 chronic kidney disease or end stage renal disease; E11.22 Type 2 diabetes mellitus with diabetic chronic kidney disease; N18.6 End stage renal disease; Z99.2 Dependence on renal dialysis; Z87.891 Personal history of nicotine dependence
CPT/HCPCS: 36415; 71045; 80053; 85025; 85610; 93005; 93010; 93970; A9270

== ENCOUNTER 2021-07-17 14:24 | Emergency (ER) | payer OTHER ==
[~2021-07-17] VITALS: Ht 175.3 cm; Wt 135.2 kg
[~2021-07-17 14:24] MED LIST changes: +ELIQUIS5 M3 PO; +Lovenox120 MG/0.8 SC; +WARF5 PO
[2021-07-17 15:47] LABS: Bun/Creatinine Ratio 5.3 (12.0-20.0); Calcium, Blood 8.1 mg/dL (8.5-10.1); Creatinine, Blood 8.37 mg/dL (0.60-1.20); Potassium, Blood 5.2 mmol/L (3.5-5.5)
== END 2021-07-17 16:55 | disposition home or self-care (01) ==
LOC: ER 14:24
PROVIDERS: Emergency Medicine
DX: R60.1 Generalized edema (principal); I12.0 Hypertensive chronic kidney disease with stage 5 chronic kidney disease or end stage renal disease; E11.22 Type 2 diabetes mellitus with diabetic chronic kidney disease; N18.6 End stage renal disease; Z99.2 Dependence on renal dialysis; E03.9 Hypothyroidism, unspecified; K21.9 Gastro-esophageal reflux disease without esophagitis; Z87.891 Personal history of nicotine dependence; Z79.899 Other long term (current) drug therapy; Z79.01 Long term (current) use of anticoagulants; Z79.82 Long term (current) use of aspirin; Z91.09 Other allergy status, other than to drugs and biological substances
CPT/HCPCS: 36415; 80048; A9270

== ENCOUNTER 2021-10-05 14:27 | Inpatient (IN) | payer OTHER ==
[~2021-10-05] VITALS: Ht 175.3 cm; Wt 133.5 kg
[~2021-10-05 14:27] MED LIST changes: +ALBU2.5V5 INH; -ALBU90OI INH; -ANTIFUNGAL POWD71 GM TOP; +MICONAZOLE NIT130 GM TOP
[2021-10-05 15:34] LABS: BASOPHILS PERCENT AUTO 0 % (0-2); EOSINOPHILS PERCENT AUTO 0 % (0-6); Hematocrit 31.2 % (37.0-53.0); Hemoglobin 10.4 g/dL (13.5-17.5); IMMATURE GRAN ABSOLUTE AUTO 0.01 K/mm3 (0.00-0.10); IMMATURE GRAN PERCENT AUTO 0 % (0-1); LYMPHOCYTES ABSOLUTE AUTO 0.17 K/mm3 (0.84-5.20); LYMPHOCYTES PERCENT AUTO 3 % (21-46); MONOCYTES ABSOLUTE AUTO 0.37 K/mm3 (0.16-1.47); MONOCYTES PERCENT AUTO 7 % (4-13); Mean Corpuscular HGB 33.3 pg (26.0-34.0); Mean Corpuscular HGB Conc 33.3 g/dL (31.5-36.5); Mean Corpuscular Volume 100 fL (80-100); Mean Platelet Volume 10.6 fL (9.1-12.4); NEUTROPHILS ABSOLUTE AUTO 4.56 K/mm3 (1.96-9.15); NEUTROPHILS PERCENT AUTO 89 % (41-73); Platelet Count 147 K/mm3 (150-400); RDW Coefficient Variation 14.6 % (11.7-14.2); RDW Standard Deviation 53.1 fL (35.1-46.3); Red Blood Cell Count 3.12 M/mm3 (4.30-5.90); White Blood Cell Count 5.11 K/mm3 (4.00-11.30)
[2021-10-05 15:39] LABS: Base Excess Venous 9.2 mmol/L; Bicarbonate Venous 32.2 mmol/L (24.0-30.0); PCO2 Venous 42.3 mmHg (38-42); pH Blood Venous 7.49 (7.34-7.37)
[2021-10-05 16:04] LABS: Phosphorus, Blood 3.9 mg/dL (2.5-4.9)
[2021-10-05 16:19] LABS: Influenza A, PCR NEGATIVE (NEGATIVE); Influenza B, PCR NEGATIVE (NEGATIVE); Resp Syncytial Virus, PCR NEGATIVE (NEGATIVE); SARS-Cov-2 (COVID-19) PCR, MMC NEGATIVE (NEGATIVE)
--- NOTE | 2021-10-05 22:35 | NUR ---
ARRIVAL TO PCU PT ARRIVED AT PCU 20 AT 1945 VIA ED BED AND TRANSFERED TO PCU BED VIA SLIDE SHEET; PT DAUGHTER AYSHA AT BEDSIDE. PT IS A/O X4 AND ABLE TO MAKE HIS NEEDS KNOWN. C/O BACK PAIN THAT IS CHRONIC; GAVE PRN PAIN MEDICATION. TEMP 97.3; AT ARRIVAL PT LINEN SOAKED IN SWEAT; ONCE CHANGED AND FAN PLACED ON PT, TEMP CAME DOWN. HE STATES THAT AT HOME HE ONLY WEARS CPAP AT NIGHT WITH 5L BLEED IN BUT DURING THE DAY ON RA; CPAP UNAVAILABLE IN THE HOSPTIAL RIGHT NOW; PT DOMINGA INSTRUCTED TO BRING IN HOME CPAP WHO STATED THAT IT CAN BE HERE TOMORROW; CURRENTLY ON 5L NC; SPO2 >98%. SINUS RHYTHM WITH RATE 80-90'S; BP STABLE. FISTULA TO HIMA NOTED; BRUIT HEARD, AND THRILL FELT. PERMACATH TO RT UPPER CHEST WALL REDRESSED AFTER ARRIVAL; AREA AROUND CATH SHOWS REDNESS. POWERGLIDE DRESSING CHANGED TO NELDA. SEE ADMISSION ASSESSMENT FOR FULL ASSESSMENT. PT WALLET, RING, AND WATCH SENT HOME WITH DAUGHTER AYSHA. A COPY OF PT VA CARD IN CHART.
--- NOTE | 2021-10-06 02:54 | NUR ---
UPDATE CALLED DR JUARES REGARDING BLOOD CULTURE GRAM POSITIVE COCCI IN CLUSTERS. NO NEW ORDERS PROVIDED.
[2021-10-06 03:49] LABS: BASOPHILS ABSOLUTE AUTO 0.01 K/mm3 (0.00-0.23); BASOPHILS PERCENT AUTO 0 % (0-2); EOSINOPHILS PERCENT AUTO 0 % (0-6); Hematocrit 31.8 % (37.0-53.0); Hemoglobin 10.1 g/dL (13.5-17.5); IMMATURE GRAN ABSOLUTE AUTO 0.01 K/mm3 (0.00-0.10); IMMATURE GRAN PERCENT AUTO 0 % (0-1); LYMPHOCYTES ABSOLUTE AUTO 0.26 K/mm3 (0.84-5.20); LYMPHOCYTES PERCENT AUTO 6 % (21-46); MONOCYTES ABSOLUTE AUTO 0.52 K/mm3 (0.16-1.47); MONOCYTES PERCENT AUTO 11 % (4-13); Mean Corpuscular HGB 32.1 pg (26.0-34.0); Mean Corpuscular HGB Conc 31.8 g/dL (31.5-36.5); Mean Corpuscular Volume 101 fL (80-100); NEUTROPHILS ABSOLUTE AUTO 3.97 K/mm3 (1.96-9.15); NEUTROPHILS PERCENT AUTO 83 % (41-73); Platelet Count 157 K/mm3 (150-400); RDW Coefficient Variation 14.6 % (11.7-14.2); RDW Standard Deviation 53.6 fL (35.1-46.3); Red Blood Cell Count 3.15 M/mm3 (4.30-5.90); White Blood Cell Count 4.77 K/mm3 (4.00-11.30)
[2021-10-06 04:23] LABS: Magnesium, Blood 2.5 mg/dL (1.6-2.4)
[2021-10-06 04:32] LABS: Alanine Aminotransfer (ALT/SGP 33 U/L (12-78); Albumin, Blood 2.7 g/dL (3.4-5.0); Albumin/Globulin Ratio 0.6 (0.8-1.8); Alk Phos 59 U/L (50-136); Anion Gap 9 mmol/L (6-16); Aspartate Aminotrans (AST/SGOT 35 U/L (12-37); Bilirubin, Total 0.4 mg/dL (0.1-1.0); Blood Urea Nitrogen 53 mg/dL (8-24); Bun/Creatinine Ratio 9.2 (12.0-20.0); CO2, Blood 33 mmol/L (21-32); Calcium, Blood 8.3 mg/dL (8.5-10.1); Chloride, Blood 93 mmol/L (98-108); Creatinine, Blood 5.78 mg/dL (0.60-1.20); Globulin, Blood 4.4 g/dL (2.2-4.0); Glomerular Filtration Rate 10 (60-); Glucose, Blood 149 mg/dL (70-99); Potassium, Blood 5.1 mmol/L (3.5-5.5); Sodium, Blood 135 mmol/L (136-145); Total Protein, Blood 7.1 g/dL (6.4-8.2)
[2021-10-06 04:33] LABS: Phosphorus, Blood 7.8 mg/dL (2.5-4.9)
--- NOTE | 2021-10-06 06:27 | NUR ---
END OF SHIFT SUMMARY PT SHAKY AND PAINFUL MOST OF THE NIGHT WITH MINIMAL RELEIF WITH MEDS PROVIDED. WARMING PAD USED WITH LITTLE COMFORT ACHIEVED. A/O X4 WITH MILD AGITATION. OBEYS COMMANDS. TEMP WNL THROUGHOUT SHIFT. VITALS WNL. PT HAD SCANT DARK YELLOW URINATION OF 125ML ENTIRE SHIFT. VERY LITTLE ORAL FLUID INTAKE. BOWEL SOUNDS HYPERACTIVE AFTER SMALL SNACK GIVEN. NO BOWEL MOEVEMENTS THIS SHIFT. PERMA CATH WNL NO APPARENT ISSUES, DRESSING C/D/I. 5L VIA NASAL CANULA WITH O2 SATS ABOVE 92%. WILL CONTINUE MONITORING UNTIL AM REPORT GIVEN TO VIVIAN BOONE.
--- NOTE | 2021-10-06 17:17 | NUR ---
SHIFT SUMMARY PATIENT WAS IN HEMODIALYSIS WHEN THIS RN RECEIVED HAND-OFF REPORT. UPON RETURNING TO ROOM FROM HEMODIALYSIS, PT STATED THAT THEY WISHED TO SLEEP, THEIR HOME CPAP MACHINE WAS SETUP AND PLACED ON THE PT. PT HAS SLEPT SINCE THEN, THEY HAVE BEEN READILY ROUSABLE WITH PERSISTENT VOICE OR MODERATE TOUCH. DURING THE FIRST HALF HOUR OF SLEEP, PT DESATURATED TO 87% ON CPAP, A 4L BLEED IN WAS ADDED AND PT RECOVERED QUICKLY AND MAINTAINED SPO2 >90%.
[2021-10-07 05:38] LABS: Hematocrit 30.5 % (37.0-53.0); Hemoglobin 9.7 g/dL (13.5-17.5)
[2021-10-07 06:07] LABS: Albumin, Blood 2.5 g/dL (3.4-5.0); Anion Gap 10 mmol/L (6-16); Blood Urea Nitrogen 60 mg/dL (8-24); Bun/Creatinine Ratio 9.8 (12.0-20.0); CO2, Blood 31 mmol/L (21-32); Calcium, Blood 8.5 mg/dL (8.5-10.1); Chloride, Blood 95 mmol/L (98-108); Creatinine, Blood 6.13 mg/dL (0.60-1.20); Glomerular Filtration Rate 9 (60-); Glucose, Blood 160 mg/dL (70-99); Magnesium, Blood 2.4 mg/dL (1.6-2.4); Phosphorus, Blood 6.8 mg/dL (2.5-4.9); Potassium, Blood 4.7 mmol/L (3.5-5.5); Sodium, Blood 136 mmol/L (136-145); Vancomycin, Random 20.6 ug/mL
--- NOTE | 2021-10-07 06:41 | NUR ---
NOC SHIFT SUMMARY PT SLEPT WELL OVERNIGHT, ON CPAP W/4L BLEED IN. VSS PER PT TREND. COMPLAINTS OF CHRONIC BACK PAIN W/RELIEF BY AVAILABLE PRNS. R CHEST SITE W/STERISTRIPS. SOME REDNESS NOTED. POWERGLIDE TO NELDA SLUGGISH W/MINIMAL BLOOD RETURN. FLUSHES ADEQUATELY. PT ORIENTED X4, BEDREST AT THIS TIME. WILL CONTINUE TO MONITOR AND PASS ON TO DAY RN
[2021-10-07 07:55] LABS: Hematocrit 31.2 % (37.0-53.0); Hemoglobin 9.9 g/dL (13.5-17.5); Mean Corpuscular HGB 32.1 pg (26.0-34.0); Mean Corpuscular HGB Conc 31.7 g/dL (31.5-36.5); Mean Corpuscular Volume 101 fL (80-100); Mean Platelet Volume 11.1 fL (9.1-12.4); Platelet Count 144 K/mm3 (150-400); RDW Coefficient Variation 14.6 % (11.7-14.2); Red Blood Cell Count 3.08 M/mm3 (4.30-5.90); White Blood Cell Count 4.47 K/mm3 (4.00-11.30)
[2021-10-07 08:11] LABS: Bun/Creatinine Ratio 9.6 (12.0-20.0); Calcium, Blood 8.5 mg/dL (8.5-10.1); Creatinine, Blood 6.38 mg/dL (0.60-1.20); Potassium, Blood 4.7 mmol/L (3.5-5.5)
[2021-10-07 08:39] LABS: BAND PERCENT MAN 7 % (0-8); BASOPHILS PERCENT MAN 0 % (0-2); EOSINOPHILS PERCENT MAN 0 % (0-6); LYMPHOCYTES ABSOLUTE MAN 0.44 K/mm3 (0.84-5.20); LYMPHOCYTES PERCENT MAN 10 % (21-46); MONOCYTES ABSOLUTE MAN 0.26 K/mm3 (0.16-1.47); MONOCYTES PERCENT MAN 6 % (4-13); NEUTROPHILS ABSOLUTE MAN 3.75 K/mm3 (1.96-9.15); SEG NEUTROPHILS PERCENT MAN 77 % (41-73); TOTAL CELLS COUNTED 100
[2021-10-07] MEDS ORDERED: OMEP20ER PO (09:31)
[2021-10-07] MEDS ORDERED: METSALMENC TOP (09:43)
[2021-10-07] MEDS ORDERED: Calcium Acetat667 MG PO (09:44)
[2021-10-07] MEDS ORDERED: SERT25 PO (10:03)
--- NOTE | 2021-10-07 16:27 | NUR ---
SHIFT SUMMARY: PT. WAS ON CPAP UPON THE BEGINNING OF THE SHIFT FOR NASREEN, AND WAS SWITCHED OVER TO 4L NC. PT. HAS SOME WHEEZES THROUGHT THE RIGHT LOBE, AND SOME IN THE MIDDLE LEFT LOBE. HE STATES NO SOB OR CHEST PAIN. PT. HAS BEEN C/O HIS CHRONIC BACK PAIN, AND WAS MEDICATED PER EMAR. PT. DID NOT HAVE ANY RELIEF SO ORDERED A TOPICAL LIDOCAINE WHICH EASED ALOT OF HIS BACK PAIN. PT. HAD A BEDBATH AND GOT UP IN THE CHAIR. HE IS A 1P W/ FWW ASSIST DURING TRANSFER. HE STATED HE HAS NOT HAD A BM FOR 3-4 DAY'S, BUT REFUSED ANY STOOL SOFTENERS THIS EVENING. PT. AMBULATES AT HOME FOR SHORT DISTANCES AT BASELINE, AND USES AN ELECTRIC WHEELCHAIR FOR LONG DISTANCES. PT. WAS ENCOURAGED TO START GETTING UP FOR ALL MEALS, AND USE THE BATHROOM TO INCREASE STRENGTH (HE AGREED). PT. IS A&OX4 AND VS HAVE BEEN STABLE ALL DAY. MIDODRINE HAS BEEN HELD ALL DAY FOR SBP >110. WILL CONTINUE TO MONITOR.
[2021-10-08 07:12] LABS: BASOPHILS ABSOLUTE AUTO 0.01 K/mm3 (0.00-0.23); BASOPHILS PERCENT AUTO 0 % (0-2); EOSINOPHILS PERCENT AUTO 0 % (0-6); Hematocrit 29.7 % (37.0-53.0); Hemoglobin 9.4 g/dL (13.5-17.5); IMMATURE GRAN ABSOLUTE AUTO 0.02 K/mm3 (0.00-0.10); IMMATURE GRAN PERCENT AUTO 0 % (0-1); LYMPHOCYTES ABSOLUTE AUTO 0.52 K/mm3 (0.84-5.20); LYMPHOCYTES PERCENT AUTO 10 % (21-46); MONOCYTES PERCENT AUTO 13 % (4-13); Mean Corpuscular HGB 32.2 pg (26.0-34.0); Mean Corpuscular HGB Conc 31.6 g/dL (31.5-36.5); Mean Corpuscular Volume 102 fL (80-100); Mean Platelet Volume 11.1 fL (9.1-12.4); NEUTROPHILS ABSOLUTE AUTO 4.23 K/mm3 (1.96-9.15); NEUTROPHILS PERCENT AUTO 77 % (41-73); Platelet Count 127 K/mm3 (150-400); RDW Coefficient Variation 14.8 % (11.7-14.2); RDW Standard Deviation 55.6 fL (35.1-46.3); Red Blood Cell Count 2.92 M/mm3 (4.30-5.90); White Blood Cell Count 5.48 K/mm3 (4.00-11.30)
[2021-10-08 07:32] LABS: Magnesium, Blood 2.6 mg/dL (1.6-2.4)
[2021-10-08 07:37] LABS: Albumin, Blood 2.4 g/dL (3.4-5.0); Anion Gap 11 mmol/L (6-16); Blood Urea Nitrogen 98 mg/dL (8-24); Bun/Creatinine Ratio 11.1 (12.0-20.0); CO2, Blood 29 mmol/L (21-32); Calcium, Blood 8.4 mg/dL (8.5-10.1); Chloride, Blood 96 mmol/L (98-108); Creatinine, Blood 8.81 mg/dL (0.60-1.20); Glomerular Filtration Rate 6 (60-); Glucose, Blood 137 mg/dL (70-99); Potassium, Blood 5.1 mmol/L (3.5-5.5); Sodium, Blood 136 mmol/L (136-145)
[2021-10-08 07:38] LABS: Phosphorus, Blood 8.5 mg/dL (2.5-4.9)
--- NOTE | 2021-10-08 07:44 | NUR ---
NOC SHIFT SUMMARY PT SLEPT WELL OVERNIGHT, ON CPAP W/4L BLEED IN. COMPLAINTS OF BACK PAIN, PRNS GIVEN. NOTIFIED DR. JUARES OVERNIGHT OF PT W/UPPER EXTREMITY TREMORS. BLOOD GLUCOSE AND TEMP WNL. NO FURTHER ORDERS AT THAT TIME. PT SR ON TELEMETRY, VSS.
--- NOTE | 2021-10-08 15:29 | NUR ---
SHIFT SUMMARY: PT. WAS VERY FATIGUED, IN PAIN, AND WEAK AT THE BEGINNING OF THE SHIFT. DR. STRINGER SAW THE PT. FIRST THING IN THE MORNING AND SET UP DIALYSIS FOR 0900. PT. WAS MEDICATED PER EMAR FOR PAIN 10/10. PAIN HAS LOWERED TO 8/10 AND HAS BEEN SUSTAINING. SINCE DIALYSIS PT. HAS HAD MORE OF AN APPETITE, MORE ENERGY, AND FEELS BETTER. VS REMAIN STABLE, AND PT. HAS NOT C/O ANYTHING OTHER THAN BACK PAIN. ANGINA AND DYSPNEA ARE NOT PRESENT. THE LAB CALLED AND CONFIRMED TWO POSITIVE CULTURES FOR COXI AND CLUSTERS (PT HAS STAPH). PT'S DAUGHTER DAVID CALLED FOR AN UPDATE, AND COULD NOT BE REACHED WHEN I CALLED HER BACK. WILL CONTINUE TO MONITOR THE PT.
[2021-10-09 04:17] LABS: Hematocrit 26.6 % (37.0-53.0); Hemoglobin 8.3 g/dL (13.5-17.5)
[2021-10-09 04:47] LABS: Magnesium, Blood 2.5 mg/dL (1.6-2.4)
[2021-10-09 04:55] LABS: Anion Gap 12 mmol/L (6-16); Blood Urea Nitrogen 110 mg/dL (8-24); CO2, Blood 28 mmol/L (21-32); Chloride, Blood 98 mmol/L (98-108); Creatinine, Blood 8.49 mg/dL (0.60-1.20); Glomerular Filtration Rate 6 (60-); Glucose, Blood 174 mg/dL (70-99); Phosphorus, Blood 8.8 mg/dL (2.5-4.9); Potassium, Blood 5.1 mmol/L (3.5-5.5); Sodium, Blood 138 mmol/L (136-145)
[2021-10-09 12:12] LABS: Albumin, Blood 2.1 g/dL (3.4-5.0); Albumin/Globulin Ratio 0.5 (0.8-1.8); Bilirubin, Direct 0.1 mg/dL (0.0-0.3); Bilirubin, Indirect 0.2 mg/dL (0.1-0.7); Bilirubin, Total 0.3 mg/dL (0.1-1.0); Globulin, Blood 4.3 g/dL (2.2-4.0); Total Protein, Blood 6.4 g/dL (6.4-8.2)
[2021-10-09 12:31] LABS: Stool Occult Blood Guaiac 1 Pos (Neg)
[2021-10-09 15:19] LABS: Hematocrit 22.2 % (37.0-53.0); Hemoglobin 7.1 g/dL (13.5-17.5)
[2021-10-09 20:06] LABS: Hematocrit 21.4 % (37.0-53.0); Hemoglobin 6.9 g/dL (13.5-17.5)
--- NOTE | 2021-10-09 22:30 | NUR ---
ASSUMED CARE AT 1900 PATIENT IS ALERT AND ORIENTED X4, SLOW TO RESPOND AT TIMES, 02 SATS 98% ON 4L NC, CPAP AT NIGHT WHILE SLEEPING. HR SR-ST 80-110. BP STABLE. PATIENT COMPLAINING OF 10/10 PAIN WHEN ASKED WHERE HE STATES "EVERYWHERE" DR NOTIFIED, ORDERS TO CONTINUE CURRENT PAIN MEDICATION REGIMEN. HOSPITALIST NOTOFIED OF HGB 6.9, TRANSFUSING 1 UNIT PRBCs NOW. PROTONIX DRIP INF. CALL LIGHT IN REACH SEE SHIFT ASSESSMENT FOR MORE DETAIL.
--- NOTE | 2021-10-09 23:55 | NUR ---
DOMINGA UPDATED ON PATIENT CONDITION
[2021-10-10 02:28] LABS: Hematocrit 23.2 % (37.0-53.0); Hemoglobin 7.7 g/dL (13.5-17.5)
[2021-10-10 03:07] LABS: Magnesium, Blood 2.7 mg/dL (1.6-2.4)
[2021-10-10 03:15] LABS: Anion Gap 17 mmol/L (6-16); Blood Urea Nitrogen 157 mg/dL (8-24); Bun/Creatinine Ratio 15.5 (12.0-20.0); CO2, Blood 26 mmol/L (21-32); Chloride, Blood 93 mmol/L (98-108); Glomerular Filtration Rate 5 (60-); Glucose, Blood 326 mg/dL (70-99); Phosphorus, Blood 10.4 mg/dL (2.5-4.9); Potassium, Blood 6.5 mmol/L (3.5-5.5); Sodium, Blood 136 mmol/L (136-145)
--- NOTE | 2021-10-10 05:50 | NUR ---
SHIFT SUMMARY PATIENT IS ALERT AND ORIENTED X4. 02 SATS >93% ON 4L VIA NC. HR SR 80s, BP STABLE. HELP WITH REPOSITIONING PRN. MEDICATED FOR GENERALIZED PAIN PRN. 1 UNIT PRBCs GIVEN THIS SHIFT. CALLED DR. STRINGER WITH CRITICAL LABS THIS AM, DIALYSIS NURSE SAMMY CALLED IN BY NURSING PSYCHOLOGIST CLINICAL. PATIENT SLEPT MOST THE NIGHT. CALL LIGHT IN REACH.
[2021-10-10 07:37] LABS: Hematocrit 26.7 % (37.0-53.0); Hemoglobin 9.2 g/dL (13.5-17.5)
[2021-10-10 08:26] LABS: Base Excess Venous -0.9 mmol/L; PCO2 Venous 31.9 mmHg (38-42); pH Blood Venous 7.46 (7.34-7.37)
[2021-10-10 08:51] LABS: Hematocrit 24.5 % (37.0-53.0); Hemoglobin 8.3 g/dL (13.5-17.5)
--- NOTE | 2021-10-10 09:00 | NUR ---
MORNING SUMMARY BEFORE TRANSFER UPON ENTERING THE ROOM AT THE BEGINNING OF THE SHIFT, PT WAS RECIEVING DIALYSIS. WHILE DOING AN ASSESSMENT THE PT WAS NOT ABLE TO VERBALLY RESPOND TO QUESTIONS,HIS SKIN WAS COOL/DIAPHRATIC, WAS HAVING TACHYPENEA, HR 120-160'S, AND BP WAS HYPOTENSIVE W/ A SBP IN THE 80'S. SPO2 WAS DIFFICULT TO OBTAIN DUE TO THE PT. HAVING COOL CLAMMY SKIN. HE HAD FIXED SMALL PUPILS THAT WERE NOT REACTIVE. DR. CALVILLO CALLED TO COME ASSESS THE PT AND SHE REQUESTED A 250 ML BOLUS OF NS FOR PRESSURES. THE BOLUS WAS GIVEN BY THE DIALYSIS NURSE, HE GAVE ANOTHER 100 ML SHORTLY AFTER THE DR'S ARRIVED. PT STAYED AWAKE, AND WAS ABLE TO ANSWER SOME QUESTIONS FOR THE DOCTORS WITH SHORT ANSWERS. HE DID HACE FREQUENT MOANS. EKG OBTAINED AND GIVEN TO DR. WATKINS. DR. JOSEPH REQUESTED 4 MCG LEVOPHED AFTER DIALYSIS AND A TRANSFER TO ICU IF THE PT IS STILL UNSTABLE. DIALYSIS NURSE STOPPED TAKING FLUIDS DURING DIALYSIS AND ONLY DID FILTER. BP REMIANED UNSTABLE AND ICU NURSE TOOK OVER CARE OF PT. AND STARTED LEVOPHED PRIOR TO TRANSFER TO ICU 2. REPORT GIVEN AT BEDSIDE TO AMAURY BOONE. DAUGHTER DAVID NOTIFIED AROUND 0900 AND SHE DROVE UP AND ARRIVED WE WERE TRANSFERING THE PT. AND I UPDATED HER ON THE PT'S CONDITION. ALL BELONGINGS SENT W/ THE PT.
[2021-10-10 09:07] LABS: Bun/Creatinine Ratio 16.2 (12.0-20.0); Creatinine, Blood 5.13 mg/dL (0.60-1.20)
[2021-10-10 11:40] LABS: Hematocrit 22.4 % (37.0-53.0); Hemoglobin 7.5 g/dL (13.5-17.5)
[2021-10-10 12:00] LABS: Albumin/Globulin Ratio 0.5 (0.8-1.8); Bilirubin, Total 0.5 mg/dL (0.1-1.0); Bun/Creatinine Ratio 14.3 (12.0-20.0); Calcium, Blood 8.7 mg/dL (8.5-10.1); Creatinine, Blood 6.99 mg/dL (0.60-1.20); Globulin, Blood 4.1 g/dL (2.2-4.0); Total Protein, Blood 6.1 g/dL (6.4-8.2)
--- NOTE | 2021-10-10 12:20 | NUR ---
ASSUMED CARE OF PT.... THIS RN WENT TO THE PT'S ROOM IN PCU 20, THE PT WAS GETTING DIALYSIS IN THE ROOM. THE PT WAS VERY PALE AND RICHTER, HE WOULD RESPOND TO LOUD VERBAL STIMULI AND BE ABLE TO NOD HIS HEAD TO SIMPLE QUESTIONS BUT FELL ASLEEP VERY QUICKLY. THE PT'S MAPS DURING THIS TIME WERE IN THE MID 50'S LEVOPHED WAS STARTED PER ORDERS AT 6MCG/MIN TO KEEP MAPS >60. THE PT WAS CPAP WITH A 5L BLEED IN, O2 SATS WERE UNKNOWN AT THIS TIME D/T NOT BEING ABLE TO GET A GOOD READING. ONCE THE PT'S DIALYSIS WAS DONE THE PT WAS TAKEN TO ICU 2. ONCE IN THE ROOM THE ICU PROVIDER WAS NOTIFIED, PLAN TO ATTEMPT TO GET MORE IV ACCESS TO GIVE ANOTHER UNIT OF PRBCs, THIS WAS NOT SUCCESSFUL SO AN ORDER FOR A PICC LINE WAS PLACED, PICC RN FROM MEDICAL FLOOR NOTIFIED. WILL CONTINUE TO MONITOR.
--- NOTE | 2021-10-10 14:55 | NUR ---
PT UPDATE.... GI PROVIDER WAS CALLED AND UPDATED ON THE PT'S CHANGE IN CONDITION AND HIS TRANSFER TO THE ICU. PLAN IS FOR THE PT TO HAVE AN EGD TONIGHT. THE LEVOPHED DRIP HAS BEEN TITRATED FROM 6MCG/MIN TO 2MCG/MIN TO KEEP MAPS >60. TEMP JETT WAS PLACED FOR STRICT I'S &O's AT THIS TIME THE PT HAS NOT MADE ANY URINE. THE PT HAS BEEN CONVERTING FROM SINUS TACH IN THE LOW 100'S TO SVT IN THE 160'S. THE PT IS NOT SYMPTOMATIC WITH THESE EPISODES AND BP IS STABLE. 1 UNIT PRBCs IS ORDERED FOR THE PT D/T DROPPING Hgb HOWEVER THE PT DOES NOT HAVE ENOUGH IV ACCESS, WAITING ON A PICC LINE PLACEMENT TO START THE PRBCs. THE PT'S DAUGHTER DAVID HAS BEEN AT THE BEDSIDE SINCE HIS TRANSFER TO THE ICU. THE PT IS MUCH MORE AWAKE AND ALERT, HE IS ABLE TO RESPOND APPROPRIATELY TO QUESTIONS IN FULL SENTENCES. CALL LIGHT IN REACH WILL CONTINUE TO MONITOR.
[2021-10-10 15:45] LABS: Hematocrit 22.5 % (37.0-53.0); Hemoglobin 7.4 g/dL (13.5-17.5)
--- NOTE | 2021-10-10 16:37 | NUR ---
10/10/21 1637 Bettye Evans See Anesthesia record, procedure performed in ICU02.
--- NOTE | 2021-10-10 16:40 | NUR ---
PT UPDATE... AT 1630 DR. FOX AT THE BEDSIDE TO ASSESS THE PT AND DO AN EGD. THE PT HAS CONVERTED TO AFIB W/RVR WITH RATES 110'S-170'S. BP CONTINUES TO BE STABLE WITH PRESSORS OFF AT THIS TIME. 1 UNIT OF PRBCs RUNNING WITH A 2ND UNIT WAITING TO BE TRANSFUSED. WILL CONTINUE TO MONITOR.
--- NOTE | 2021-10-10 18:33 | NUR ---
PT UPDATE/SHIFT SUMMARY.... AT APROX 1715 THE EGD WAS STARTED, DURING THE EGD THE PT STARTED TO VOMIT BLACK COFFEE GROUND GASTRIC FLUID, THE PT STARTED TO DESATURATE. THE EGD WAS ABORTED AT THIS TIME. AT 1735 THE PT HAD STILL NOT RECOVERED HIS O2 SATS WERE 86%-88% THE PT'S BREATHING SOUNDED WET. L/S COARSE CRACKELS NOTED T/O UPPER AND MID LOBES DIM IN THE LOWER LOBES. DR. CARABALLO WAS UPDATED ON THE PT'S CONDITION, THE PT'S FAMILY WAS UPDATED AND THEY AGREED ON INTUBATION. INTUBATION: 1740 DAMARIS DRIP WAS STARTED AT 150MCG AND THE PT WAS GIVEN DAMARIS 50MCG IV PUSH. PROPOFOL IV PUSH OF 40MCG WAS GIVEN AT 174, ODILIA 50MG GIVEN AT 1746. THE PT WAS INTUBATED AT 1747 WITH 8.0 AND 26 AT THE TEETH. DURING INTUBATION BLACK COFFEE GROUND GASTRIC FLUID WAS SUCTIONED OUT OF THE PT'S TRACHIA. THE PT'S VENT SETTINGS ARE AC: 16/500/5/100% THE PT'S O2 SATS HAVE BEEN >95%. CHEST XRAY WAS OBTAINED POST EXTUBATION. AFTER INTUBATION GI PROVIDER RESTARTED THE EGD, 3000MLS OF BLACK COFFEE GROUND GASTRIC CONTENTS WERE SUCTIONED OUT. (SEE GI PROVIDER NOTE FOR FURTHER DETAILS.) PER DR. FOX OG TUBE IS TO BE PLACED FOR GASTRIC DECOMPRESSION, NO SUCTION AND NO MEDS DOWN THE OG TUBE D/T POSSIBLE OBSTRUCTION. NO EVENTS DURING THE PROCEDURE. WILL CONTINUE TO MONITOR UNTIL REPORT IS GIVEN TO ONCOMING RN.
--- NOTE | 2021-10-10 18:36 | NUR ---
10/10/21 1836 Bettye Evans PROCEDURE IN ICU02; PRIMARY BUSINESS INTELLIGENCE ARCHITECT IN ROOM.
[2021-10-10 20:16] LABS: Hemoglobin 9.3 g/dL (13.5-17.5)
--- NOTE | 2021-10-10 22:40 | NUR ---
ASSUMED CARE AT 1900 PT LAYING IN BED INTUBATED AT SHIFT CHANGE; PT TWO DAUGHTERS DAVID AND AYSHA AT BEDSIDE, ONE OF THEM IS VERY TEARFULL AND BOTH GREATFUL FOR ALL THE CARE BEING PROVIDED TO THE PT; BOTH LEFT SHORTLY AFTER 1900. PT IS SEDATED WITH PROPOFOL INFUSING AT 40MCG/KG/MIN; SEE FLOWSHEET FOR TITRATION; WEAK COUGH AND GAG NOTED. VENT SETTINGS AC/VC 16/500/5/80%; SPO2 >95%; SMALL-MOD AMOUNT OF THICK COFFEE GROUND CONSISTANCY SPUTUM COMING FROM ETT. AFEBRILE. HR 90'S; SBP 100-120; DAMARIS INFUSING AT 60MCG/MIN; CONCENTRATION OF DAMARIS DISCUSSED WITH PHARMACY, THEY WERE ABLE TO INCREASE CONCENTRATION TO DECREASE AMOUNT OF FLUID. OG PLACED AT THE BEGINNING OF THE SHIFT; XRAY READ BY DR NORMAN WHO INSTRUCTED TO PULL OG OUT BY 5CM; OG CURRENTLY CLAMPED; PROTONIX GTT INFUSING. JETT IN PLACE WITH MINIMAL OUTPUT. PREVIOUS PERMACATH TO RT UPPER CHEST WALL SHOWS SOME BRUISING, NO DRAINAGE, DRESSING C/D/I. FISTULA HAS THRILL AND BRUIT; SOME BRUISING AROUND SITE. H&H DRAWN AT 1999 AND SHOWED IMPROVEMENT. SEE SHIFT ASSESSMENT FOR FULL ASSESSMENT.
--- NOTE | 2021-10-10 23:25 | NUR ---
UPDATE CALLED DR CARABALLO REGARDING CONCERNS OF NEEDING TO INCREASE DAMARIS MORE OFTEN WHICH ALSO MEANS INCREASED FLUID GIVEN TO PT. NEW ORDERS PROVIDED TO START ON LEVOPHED AGAIN AND TO CALL PHARMACY REGARDING INCREASEING CONCENTRATION TOO; START TITRATING DAMARIS OFF WHEN LEVOPHED STARTED. ALSO GAVE UPDATE REGARDING IMPROVED HBG; DR CARABALLO PROVIDED INSTRUCTION TO INFUSING 1 UNIT OF PRBC IF MORNING HBG IS <8.5 AND IF HBG IS <7 TO INSTEAD INFUSE 2 UNITS OF PRBC.
--- NOTE | 2021-10-11 00:44 | NUR ---
UPDATE CALLED DR NORMAN REGARDING BP; LEVOPHED HAS BEEN STARTED AND DAMARIS IS BEING TITRATED DOWN; LEVOPHED QUICKLY TITRATED UP TO 16MCG/MIN WITH DAMARIS INFUSING AT 80MCG/MIN; NEW ORDER PROVIDED TO START VASOPRESSIN ADJUNCT WITH LEVOPHED.
[2021-10-11 04:43] LABS: Hematocrit 26.9 % (37.0-53.0); Hemoglobin 8.9 g/dL (13.5-17.5); Mean Corpuscular HGB 30.8 pg (26.0-34.0); Mean Corpuscular HGB Conc 33.1 g/dL (31.5-36.5); Mean Platelet Volume 11.2 fL (9.1-12.4); NRBC ABSOLUTE 0.02 K/mm3 (0.00-0.02); NRBC Auto 0.1 /100 WBC (0.0-0.2); Platelet Count 292 K/mm3 (150-400); RDW Coefficient Variation 17.2 % (11.7-14.2); RDW Standard Deviation 59.1 fL (35.1-46.3); Red Blood Cell Count 2.89 M/mm3 (4.30-5.90); White Blood Cell Count 15.01 K/mm3 (4.00-11.30)
[2021-10-11 04:48] LABS: Mean Corpuscular Volume 93 fL (80-100)
[2021-10-11 05:08] LABS: Magnesium, Blood 2.5 mg/dL (1.6-2.4)
[2021-10-11 05:41] LABS: Albumin, Blood 1.8 g/dL (3.4-5.0); Anion Gap 15 mmol/L (6-16); Blood Urea Nitrogen 127 mg/dL (8-24); CO2, Blood 27 mmol/L (21-32); Calcium, Blood 7.8 mg/dL (8.5-10.1); Chloride, Blood 100 mmol/L (98-108); Creatinine, Blood 7.96 mg/dL (0.60-1.20); Glomerular Filtration Rate 7 (60-); Glucose, Blood 277 mg/dL (70-99); Phosphorus, Blood 10.1 mg/dL (2.5-4.9); Potassium, Blood 4.9 mmol/L (3.5-5.5); Sodium, Blood 142 mmol/L (136-145)
--- NOTE | 2021-10-11 06:23 | NUR ---
END OF SHIFT SUMMARY PT CONT TO BE INTUBED WITH VENT SETTINGS AC/VC 16/500/5/70%; SMALL AMOUNT OF THICK COFFEE GROUND SPUTUM FROM ETT. HE CONT TO BE REACTIVE TO PAINFUL STIMULI; WHEN PROPOFOL WAS ON SB WHILE DRAWING AM LABS, PT BECAME MORE ALERT, MAKING EYE CONTACT WITH RN AND TRYING TO TALK AROUND THE ETT; HE LOOKED IN DISTRESS AND NOT CONSOLABLE; PROPOFOL TURNED BACK ON AFTER LAB DRAW AT 40MCG/KG/MIN. SINCE STARTING THE VASOPRESSIN, DAMARIS IS NOW TITRATED TO OFF; LEVOPHED INFUSING AT 20MCG/MIN; NOW SBP 100-120'S, MAP 65-75. HR CONT TO BE NSR WITH RATE 70-90'S. ONE LARGE BLACK NON-FORMED STOOL; OG IN PLACE AND CLAMMPED; PROTONIX GTT INFUSING. JETT IN PLACE WITH NO URINE OUTPUT THIS SHIFT. PICC TO NELDA PATENT WITH DRESSING C/D/I. PG TO NELDA PATENT. WILL REPORT TO AM RN WHEN AVAILABLE.
[2021-10-11 09:40] LABS: Source, Urine Foley catheter
[2021-10-11 09:47] LABS: Bilirubin, Urine Neg (Neg); Blood, Urine 5+ (Neg); Glucose Qualitative, Urine 2+ (Neg); Ketones, Urine 1+ (Neg); Leukocyte Esterase, Urine 3+ (Neg); Nitrite, Urine Pos (Neg); Protein, Urine 4+ (Neg); Urobilinogen, Urine NORM (Normal)
[2021-10-11 09:48] LABS: Appearance, Urine Cloudy (Clear); Color, Urine Yellow (P-Yellow)
[2021-10-11 09:52] LABS: White Blood Cells, Urine TNTC /hpf (0-5)
[2021-10-11 09:53] LABS: Bacteria Many /hpf; Red Blood Cells, Urine TNTC /hpf (0-2); Squamous Epithelial Cells Mod /hpf (Few)
[2021-10-11 13:12] LABS: Hematocrit 22.5 % (37.0-53.0); Hemoglobin 7.6 g/dL (13.5-17.5)
--- NOTE | 2021-10-11 14:39 | NUR ---
PT TAKEN FOR CTA OF ABD THEN BACK TO ROOM. H&H DROPPED AGAIN, NEW ORDERS FOR 1 UNIT PRBC'S. DAUGHTER DAVID UPDATED T/O THE DAY.
--- NOTE | 2021-10-11 15:26 | NUR ---
[facility] CONSULT [facility] CALLED PER DR. CARABALLO FOR DR. VALENTE CONSULT. THEY WILL GET IN CONTACT WITH HIM.
--- NOTE | 2021-10-11 18:39 | NUR ---
SUMMARY PT INTUBATED AND SEDATED. DID NOT TAKE SEDATION DOWN TODAY PER DR. CARABALLO DUE TO PT BEING UNSTABLE AND WILD WHEN HE WAKES UP. PT WAKES UP VERY FRANTIC AND UNABLE TO REDIRECT. DOES NOT FOLLOW COMMANDS. H&H DROPPED THIS AFTERNOON. CTA ABD DONE AND DUODENAL ARTERIAL BLEED FOUND. WENT TO RECEIVING TEAM MEMBER AND DR. VALENTE PLACED COIL PACK IN ARTERY. WHILE IN RECEIVING TEAM MEMBER PT HAD LARGE LIQUID BLACK TARRY STOOL. HAS OG TUBE THAT IS CLAMPED. THIS AFTERNOON UNCLAMPED TO SEE IF BROWN/BLACK OUTPUT THAT CAN BE SEEN IN TUBE WOULD DRAIN OUT WITHOUT SUCTION. IT IS TOO THICK TO DRAIN, RE-CLAMPED. TITRATING LEVOPHED DOWN. FAMILY UPDATED AFTER PROCEDURE.
--- NOTE | 2021-10-11 19:15 | NUR ---
ASSUMPTION OF CARE PT REMAINS INTUBATED WITH VENT SETTINGS AC/VC 16/500/5/40%. HE IS RECEIVING PROPOFOL 45MCG/KG/MIN, LEVOPHED 10MCG/MIN, VASOPRESSIN 0.04UNITS/MIN, PROTONIX GTT, AND NS TKO. OGT CLAMPED. BOWEL TONES VERY HYPOACTIVE. ABDOMEN SOFT. TEMP JETT IN PLACE DRAINING CLOUDY/YELLOW URINE. R GROIN SITE FROM PRIMARY CARE PHYSICIAN SOFT, NO HEMATOMA, DRESSING C/D/I. PICC AND PG TO R ARM. THRILL PALPABLE ON L ARM FISTULA. FAMILY AT BEDSIDE, UPDATED ON PLAN OF CARE.
--- NOTE | 2021-10-11 20:00 | NUR ---
SEDATION VACATION PROPOFOL OFF FOR APPROX 30MIN. PT OPENS EYES SPONTANEOUSLY, MAKES EYE CONTACT AND TRACKS MOVEMENTS. PT IS ABLE TO LIGHTLY SQUEEZE WITH BOTH HANDS, SLIGHTLY WIGGLES TOES TO COMMAND. HE ANSWERS QUESTIONS BY NODDING/SHAKING HEAD. HE NODS HIS HEAD "YES" TO KNOWING HE IS IN THE HOSPITAL AND THAT HIS DAUGHTER'S WERE AT HIS BEDSIDE EARLIER. HE ALSO NODS HIS HEAD "YES" WHEN ASKED IF HE IS IN PAIN. PT BEGINS TO APPEAR ANXIOUS. FACIAL GRIMACING AND GAGGING. WHEN ASKED IF THE ETT IS UNCOMFORTABLE HE NODS HIS HEAD "YES". HE LIGHTLY PULLS AGAINST RESTRAINTS. PT MEDICATED PER EMAR AND INFORMED SEDATION WOULD BE TURNED BACK ON TO WHICH HE NODDED HIS HEAD.
[2021-10-11 20:03] LABS: Hematocrit 24.6 % (37.0-53.0); Hemoglobin 8.5 g/dL (13.5-17.5)
[2021-10-12 04:39] LABS: BASOPHILS ABSOLUTE AUTO 0.01 K/mm3 (0.00-0.23); BASOPHILS PERCENT AUTO 0 % (0-2); EOSINOPHILS PERCENT AUTO 0 % (0-6); Hematocrit 22.7 % (37.0-53.0); Hemoglobin 7.8 g/dL (13.5-17.5); IMMATURE GRAN PERCENT AUTO 2 % (0-1); LYMPHOCYTES ABSOLUTE AUTO 0.81 K/mm3 (0.84-5.20); LYMPHOCYTES PERCENT AUTO 8 % (21-46); MONOCYTES ABSOLUTE AUTO 0.59 K/mm3 (0.16-1.47); MONOCYTES PERCENT AUTO 6 % (4-13); Mean Corpuscular HGB 31.8 pg (26.0-34.0); Mean Corpuscular HGB Conc 34.4 g/dL (31.5-36.5); Mean Corpuscular Volume 93 fL (80-100); Mean Platelet Volume 10.8 fL (9.1-12.4); NEUTROPHILS PERCENT AUTO 84 % (41-73); NRBC ABSOLUTE 0.02 K/mm3 (0.00-0.02); NRBC Auto 0.2 /100 WBC (0.0-0.2); Platelet Count 236 K/mm3 (150-400); RDW Coefficient Variation 17.1 % (11.7-14.2); RDW Standard Deviation 56.7 fL (35.1-46.3); Red Blood Cell Count 2.45 M/mm3 (4.30-5.90); White Blood Cell Count 10.01 K/mm3 (4.00-11.30)
[2021-10-12 06:10] LABS: Albumin, Blood 1.6 g/dL (3.4-5.0); Anion Gap 19 mmol/L (6-16); Blood Urea Nitrogen 153 mg/dL (8-24); CO2, Blood 23 mmol/L (21-32); Calcium, Blood 7.2 mg/dL (8.5-10.1); Chloride, Blood 99 mmol/L (98-108); Creatinine, Blood 9.01 mg/dL (0.60-1.20); Glomerular Filtration Rate 6 (60-); Glucose, Blood 244 mg/dL (70-99); Phosphorus, Blood 12.2 mg/dL (2.5-4.9); Potassium, Blood 5.2 mmol/L (3.5-5.5); Sodium, Blood 141 mmol/L (136-145)
--- NOTE | 2021-10-12 06:21 | NUR ---
SHIFT SUMMARY PT REMAINS INTUBATED WITH VENT SETTINGS AC/VC 16/500/5/40%. HE IS RECEIVING PROPOFOL 50MCG/KG/MIN, LEVOPHED 8MCG/MIN, VASOPRESSIN 0.04UNITS/MIN, PROTONIX GTT, AND NS TKO. DURING SEDATION VACATION, PT WAS ABLE TO OPEN EYES SPONTANEOUSLY, TRACK MOVEMENTS, ANSWER QUESTIONS BY NODDING/SHAKING HEAD, AND LIGHTLY SQUEEZE HANDS AND WIGGLE TOES. PT BECAME ANXIOUS AND PROPOFOL RESTARTED. OGT REMAINED CLAMPED. BOWEL TONES ACTIVE. RECTAL TUBE PLACED DUE TO 2 LARGE BLACK LIQUID STOOLS. JETT PATENT AND DRAINING WITH SHIFT OUTPUT OF 150ML. R GROIN SITE SOFT, NO HEMATOMA, DRESSING C/D/I. HOSPITALIST NOTIFIED OF H&H, NO ADDITIONAL ORDERS AT THIS TIME. DR STRINGER NOTIFIED OF CRITICAL AM LABS. PLAN FOR DIALYSIS THIS AM. DAUGHTER DAVID UPDATED THIS AM.
[2021-10-12 12:17] LABS: Hematocrit 22.7 % (37.0-53.0); Hemoglobin 7.7 g/dL (13.5-17.5)
--- NOTE | 2021-10-12 18:32 | NUR ---
SUMMARY PT INTUBATED AND SEDATED. PT AWAKENS QUICKLY WHEN SEDATION IS OFF. ABLE TO NOD YES AND NO. GETS A LITTLE RESTLESS. TITRATED LEVOPHED AND VASOPRESSIN OFF. HAD DIALYSIS TODAY AND 2L WERE REMOVED. PT TOLERATED WITHOUT USE OF PRESSORS. STILL HAVING BLACK TARRY STOOL BUT SEEMS TO BE SLOWING DOWN. DR. FOX SAID THIS IS TO BE EXPECTED. OG CLAMPED, NO MEDS OR SUCTION PER DR. FOX. PT WILL HAVE JEFF TOMORROW WITH DR. PATEL. NO OTHER ACUTE CHANGES THIS SHIFT. FAMILY UPDATED T/O THE DAY.
--- NOTE | 2021-10-12 19:15 | NUR ---
ASSUMPTION OF CARE PT REMAINS INTUBATED WITH VENT SETTINGS AC/VC 16/500/5/40%. HE IS RECEIVING PROPOFOL 40MCG/KG/MIN, PROTONIX INFUSION AND NS TKO. LEVOPHED AND VASOPRESSIN HAVE BEEN OFF SINCE THIS AFTERNOON. MAP 65. WITH SEDATION OFF, PT IS ABLE TO FOLLOW COMMANDS AND ANSWER QUESTIONS BY NODDING/SHAKING HEAD. OGT CLAMPED. BOWEL TONES HYPOACTIVE. RECTAL TUBE IN PLACE WITH LIQUID BLACK STOOL. JETT PATENT AND DRAINING CLEAR/YELLOW URINE. VSS AT THIS TIME. SEE SHIFT ASSESSMENT.
[2021-10-13 04:17] LABS: Hematocrit 20.7 % (37.0-53.0); Hemoglobin 7.3 g/dL (13.5-17.5); Mean Corpuscular HGB 32.6 pg (26.0-34.0); Mean Corpuscular HGB Conc 35.3 g/dL (31.5-36.5); Mean Corpuscular Volume 92 fL (80-100); Mean Platelet Volume 10.5 fL (9.1-12.4); Platelet Count 200 K/mm3 (150-400); RDW Coefficient Variation 16.9 % (11.7-14.2); RDW Standard Deviation 56.8 fL (35.1-46.3); Red Blood Cell Count 2.24 M/mm3 (4.30-5.90); White Blood Cell Count 10.21 K/mm3 (4.00-11.30)
[2021-10-13 04:32] LABS: Magnesium, Blood 2.4 mg/dL (1.6-2.4)
[2021-10-13 05:02] LABS: Albumin, Blood 1.5 g/dL (3.4-5.0); Anion Gap 15 mmol/L (6-16); Blood Urea Nitrogen 105 mg/dL (8-24); CO2, Blood 26 mmol/L (21-32); Calcium, Blood 7.2 mg/dL (8.5-10.1); Chloride, Blood 97 mmol/L (98-108); Glomerular Filtration Rate 8 (60-); Glucose, Blood 121 mg/dL (70-99); Phosphorus, Blood 9.5 mg/dL (2.5-4.9); Sodium, Blood 138 mmol/L (136-145)
--- NOTE | 2021-10-13 05:05 | NUR ---
SHIFT SUMMARY PT REMAINS INTUBATED WITH VENT SETTINGS AC/VC 16/500/5/40%. HE IS RECEIVING PROPOFOL 40MCG/KG/MIN, PROTONIX GTT, AND NS TKO. HE OPENS EYES TO VERBAL STIMULI, ANSWERS QUESTIONS BY NODDING/SHAKING HEAD, AND FOLLOWS SOME COMMANDS. OGT REMAINS CLAMPED. BOWEL TONES HYPOACTIVE. RECTAL TUBE IN PLACE DRAINING SMALL AMOUNT OF BLACK LIQUID STOOL. JETT PATENT AND DRAINING TO GRAVITY. 75ML OF URINE OUTPUT THIS SHIFT. PICC AND PG TO NELDA. FISTULA THRILL PALPABLE ON HIMA. R FEMORAL SITE SOFT, NO HEMATOMA, DRESSING C/D/I. VSS THROUGHOUT SHIFT.
--- NOTE | 2021-10-13 08:00 | NUR ---
ASSUMED CARE REPORT FROM CHRISTINA BOONE AT 0700. PT INTUBATED AND SEDATED. VENT SETTINGS AC/VC 16/500/5/40%. LUNGS CLEAR, DIM IN BASES. PROPOFOL GTT FOR SEDATION. PT OPENS EYES TO VERBAL STIMULI. DOES NOT FOLLOW COMMANDS. WITHDRAWS FROM PAINFUL STIMULI. COUGH/GAG REFLEX IN PLACE. OGT CLAMPED, NO MEDS OR SUCTION THROUGH OGT PER GI DOC. ABD OBESE, SOFT, NON TENDER. BT HYPOACTIVE. RECTAL TUBE IN PLACE, DRAINING BLACK STOOL TO GRAVITY. JETT PATENT, OLIURIC, DRAINING TO GRAVITY. PICC TO RUE, WILL CHANGE DRESSING THIS SHIFT, WILL REMOVE PG TO RUE. PLAN FOR JEFF THIS SHIFT. WILL CONTINUE TO MONITOR UNTIL REPORT TO ONCOMING NURSE.
[2021-10-13 15:58] LABS: Hematocrit 21.6 % (37.0-53.0); Hemoglobin 7.3 g/dL (13.5-17.5)
--- NOTE | 2021-10-13 17:37 | NUR ---
SHIFT SUMMARY PT REMAINS INTUBATED AND SEDATED. PT ON SPONT 5/5/40% FOR APPROX 6 HOURS. TOLERATING WELL, RATE 16-20, TV 500-550 ML. LUNGS CLEAR. COUGH/GAG REFLEX. OPENS EYES TO VERBAL STIMULI. WITHDRAWS TO PAINFUL STIMULI. OGT REMAINS CLAMPED. ABD OBESE, ROUND, SOFT. NON TENDER. BT X 4. RECTAL TUBE TO GRAVITY, BLACK LIQUID STOOL OUT, 450 ML THIS SHIFT. JETT D/C'D THIS SHIFT. 35 ML OUT. PICC REMOVED D/T BACTEREMIA. PIV X 2 PLACED. CLINIMIX STARTED THIS SHIFT. WILL CONTINUE TO MONITOR UNTIL REPORT TO ONCOMING NURSE.
--- NOTE | 2021-10-13 19:10 | NUR ---
ASSUMPTION OF CARE PT REMAINS INTUBATED WITH VENT SETTINGS SPONT 5/5/40% SINCE APPROX NOON. PT TOLERATING WELL, RATE 16-22 WITH TV 500-540S. LUNGS CLEAR, DIMINISHED IN BASES. PT SEDATED WITH PROPOFOL 40MCG/KG/MIN, ALSO RECEIVING CLINIMIX. PT OPENS EYES TO VERBAL STIMULI, DOES NOT FOLLOW COMMANDS BUT GRIMACES WITH NOXIOUS STIMULI. LIMBS WITHDRAW FROM PAINFUL STIMULI. COUGH/GAG INTACT DURING SUCTIONING AND ORAL CARE. BOWEL TONES HYPOACTIVE, ABDOMEN SOFT. RECTAL TUBE CONTINUES TO DRAIN BLACK LIQUID STOOL TO GRAVITY. PREVIOUS PICC SITE SOFT, DRESSING C/D/I. 2 18G PERIPHERAL IVS IN R ARM. SCDS IN PLACE. VSS AT THIS TIME. SEE SHIFT ASSESSMENT.
[2021-10-14 04:19] LABS: Hematocrit 21.1 % (37.0-53.0); Mean Corpuscular HGB 31.5 pg (26.0-34.0); Mean Corpuscular HGB Conc 33.2 g/dL (31.5-36.5); Mean Corpuscular Volume 95 fL (80-100); Mean Platelet Volume 10.9 fL (9.1-12.4); Platelet Count 196 K/mm3 (150-400); RDW Coefficient Variation 16.7 % (11.7-14.2); RDW Standard Deviation 57.4 fL (35.1-46.3); Red Blood Cell Count 2.22 M/mm3 (4.30-5.90); White Blood Cell Count 9.67 K/mm3 (4.00-11.30)
[2021-10-14 05:09] LABS: Magnesium, Blood 2.4 mg/dL (1.6-2.4)
[2021-10-14 05:22] LABS: Albumin, Blood 1.4 g/dL (3.4-5.0); Anion Gap 18 mmol/L (6-16); Blood Urea Nitrogen 119 mg/dL (8-24); Bun/Creatinine Ratio 15.2 (12.0-20.0); CO2, Blood 22 mmol/L (21-32); Calcium, Blood 6.4 mg/dL (8.5-10.1); Chloride, Blood 95 mmol/L (98-108); Creatinine, Blood 7.83 mg/dL (0.60-1.20); Glomerular Filtration Rate 7 (60-); Glucose, Blood 129 mg/dL (70-99); Potassium, Blood 4.5 mmol/L (3.5-5.5); Sodium, Blood 135 mmol/L (136-145); Triglycerides 646 mg/dL (30-160)
[2021-10-14 05:47] LABS: Phosphorus, Blood 14.3 mg/dL (2.5-4.9)
--- NOTE | 2021-10-14 06:17 | NUR ---
SHIFT SUMMARY PT REMAINS INTUBATED WITH VENT SETTINGS SPONT 5/5/40%. HE IS RECEIVING PROPOFOL 40MCG/KG/MIN AND CLINIMIX. HE OPENS EYES TO VERBAL STIMULI AND GRIMACES WITH NOXIOUS STIMULI. OGT CLAMPED. BOWEL TONES HYPOACTIVE. RECTAL TUBE DRAINING LIQUID STOOL WITH SHIFT OUTPUT OF 300ML. SMALL INCONTINENT UNMEASURED VOID. VSS THROUGHOUT SHIFT. WILL REPORT TO ONCOMING RN.
--- NOTE | 2021-10-14 08:45 | NUR ---
ASSUMED CARE REPORT FROM CHRISTINA BOONE AT 0700. PT INTUBATED, SEDATED. VENT SETTINGS SPONT 5/5/40%, TV 500-550 ML, RR 16-20. LUNGS CLEAR. RT SUCTIONED ONCE c THICK YELLOW SPUTUM, SMALL AMOUNT. PROPOFOL GTT INFUSING. PT OPENS EYES TO VERBAL STIMULI, DOES NOT FOLLOW COMMANDS. WITHDRAWS EXT TO PAINFUL STIMULI. SR ON MONITOR, RATE 70'S. BP STABLE. OGT CLAMPED, ABD OBESE, SOFT, NON TENDER. BT X 4. RECTAL TUBE IN PLACE, DRAINING LIQUID BLACK STOOL TO GRAVITY. PIV X 2. PLAN FOR DIALYSIS THIS SHIFT AND POSSIBLE EXTUBATION. WILL CONTINUE TO MONITOR.
--- NOTE | 2021-10-14 12:36 | NUR ---
PT TOLERATED TX WELL, NO ADVERSE EVENTS, VSS, REPORT GIVEN TO BEDSIDE RN.
--- NOTE | 2021-10-14 14:00 | NUR ---
EXTUBATION PT REMAINED ON SPONT 5/5/40%. LUNGS CLEAR. SMALL AMOUNT OF THICK SIMS SECRETIONS FROM ETT. COUGH/GAG/SWALLOW REFLEX. PROPOFOL TITRATED OFF. PT NEEDS REPEATITIVE COMMANDS BUT ABLE TO MOVE FEET ON COMMAND. PT EXTUBATED AT 1325. RESTRAINTS REMOVED. PT HAS WEAK VOICE AND COUGH. ENCOURAGED COUGH AND DEEP BREATHING. PT MINIMALLY PARTICIPATING. SUCTIONED c TRACE. INITALLY PLACED ON 4L VIA NC. PT REPORTED SOB AND INDICATED HE WANTED MASK THAT HE WEARS AT HOME. RT AT BEDSIDE. PLACED ON BIPAP 14//40%. WILL CONTINUE TO MONITOR.
--- NOTE | 2021-10-14 18:00 | NUR ---
SHIFT SUMMARY: PT IS AWAKE BUT DROWSY. THE PT ORIENTED TO SELF, REPETITIVE SPEECH OCCURING THIS EVENING. THE PT NOT ABLE TO CONSISTENTLY ANSWER YES/NO QUESTIONS. THE HAS BIPAP AT THE BESIDE WITH SETTINGS 14/8/50%; CURRENTLY, THE PT IS ON 4 L OXYGEN VIA NC. THE PT HAS COARSE LUNG SOUNDS IN THE BILAT. UPPER LOBES AND DIMINISHED IN THE LOWER LOBES. THE PT O2 LEVELS MAINTAINING 94< AND RR 16-20. THE PT IS CONTINUOUSLY COMPLAINING ABOUT PAIN; DR GOODSON NOTIFIED AND PAIN MED CHANGED TO BE GIVEN Q2HR. PT COUGH EFFORT IMPROVING SLOWLY THIS SHIFT. PT WENT INTO AFIB THIS EVEING WITH HR IN THE 90-100'S AND SBP IN THE 120'S, DR GOODSON NOTIFIED. PT HAS SOME ABD TENDERNESS DURING ASSESSMENT. THE PT HAS A SPEECH EVALUATION AND PT/OT SCHEDULED FOR TOMORROW. DAUGHTER, AYSHA, REMAINS AT BEDSIDE THIS SHIFT. CALL LIGHT IN REACH. WILL CONTINUE TO MONITOR UNTIL DUCK OPERATOR RN ARRIVES.
[2021-10-15 04:25] LABS: BASOPHILS ABSOLUTE AUTO 0.01 K/mm3 (0.00-0.23); BASOPHILS PERCENT AUTO 0 % (0-2); EOSINOPHILS ABSOLUTE AUTO 0.04 K/mm3 (0.00-0.68); EOSINOPHILS PERCENT AUTO 1 % (0-6); Hematocrit 20.8 % (37.0-53.0); Hemoglobin 6.8 g/dL (13.5-17.5); IMMATURE GRAN ABSOLUTE AUTO 0.34 K/mm3 (0.00-0.10); IMMATURE GRAN PERCENT AUTO 5 % (0-1); LYMPHOCYTES PERCENT AUTO 7 % (21-46); MONOCYTES ABSOLUTE AUTO 0.53 K/mm3 (0.16-1.47); MONOCYTES PERCENT AUTO 7 % (4-13); Mean Corpuscular HGB 31.5 pg (26.0-34.0); Mean Corpuscular HGB Conc 32.7 g/dL (31.5-36.5); Mean Corpuscular Volume 96 fL (80-100); Mean Platelet Volume 11.1 fL (9.1-12.4); NEUTROPHILS ABSOLUTE AUTO 6.08 K/mm3 (1.96-9.15); NEUTROPHILS PERCENT AUTO 81 % (41-73); Platelet Count 207 K/mm3 (150-400); RDW Coefficient Variation 16.5 % (11.7-14.2); RDW Standard Deviation 56.8 fL (35.1-46.3); Red Blood Cell Count 2.16 M/mm3 (4.30-5.90)
[2021-10-15 04:43] LABS: Magnesium, Blood 2.6 mg/dL (1.6-2.4)
[2021-10-15 05:05] LABS: Albumin, Blood 1.4 g/dL (3.4-5.0); Anion Gap 18 mmol/L (6-16); Blood Urea Nitrogen 78 mg/dL (8-24); Bun/Creatinine Ratio 12.8 (12.0-20.0); CO2, Blood 22 mmol/L (21-32); Calcium, Blood 7.2 mg/dL (8.5-10.1); Chloride, Blood 101 mmol/L (98-108); Creatinine, Blood 6.11 mg/dL (0.60-1.20); Glomerular Filtration Rate 9 (60-); Glucose, Blood 109 mg/dL (70-99); Phosphorus, Blood 11.9 mg/dL (2.5-4.9); Potassium, Blood 4.1 mmol/L (3.5-5.5); Sodium, Blood 141 mmol/L (136-145)
--- NOTE | 2021-10-15 06:15 | NUR ---
END OF SHIFT SUMMARY NO ACUTE CHANGES OVERNIGHT. PT HAS NEW IV IN RIGHT WRIST AND THE PIV IN RIGHT FA REMOVED DUE TO LEAKING. PT ON 0.7 OF PRECEDEX WAS RESTLESS THROUGHOUT THE NIGHT KEPT PULLING OFF BIPAP AND HOLDING RIGHT ARM UP IN AIR AND INTERMITTENTLY SAYING HELP ME. PT SATURATED TWO WHITE CHUX WITH URINE AT BEGINING OF SHIFT. PLACED EXTERNAL CATH PT HAS NOT VOIDED SINCE AND BLADDER SCANNED FOR 50 MLS. RECTAL TUBE DRAINING WITHOUT DIFFICULTY STILL BLACK/DARK BROWN LOOSE STOOLS. RECTAL TUBE BAG WAS CHANGED ON THIS SHIFT. PT REPOSITIONED Q2H THROUGH THE NIGHT TO PREVENT SKIN BREAK DOWN. PT REMAINS ON TKO FLUIDS AND GETTING DOUGIE ANTIBIOTICS. PT DECREASED TO 4 LITERS NC PRIOR TO HAVING BIPAP PUT ON FOR THE NIGHT. WILL GIVE REPORT TO ONCOMING RN.
--- NOTE | 2021-10-15 07:15 | NUR ---
Beginning of shift Assumed care of pt at 0700. Report received from DC RN. Initially on BiPAP. Removed and placed on 4 LPM NC. SpO2 90% or greater. Tolerated break well. Pt responsive to verbal stimulus. Able to state first and last name separately when asked repeatedly. States "help me" when asked location and date/time. On 0.7 mcg/kg/hr to manage anxiety and restlessness. SR per monitor. BP stable.
--- NOTE | 2021-10-15 10:00 | NUR ---
Stopped precedex. Goal to achieve maximum alertness so pt can participate with speech therapy today.
[2021-10-15 11:31] LABS: Triglycerides 433 mg/dL (30-160)
--- NOTE | 2021-10-15 12:00 | NUR ---
Pt alert. Allowed ice chips and water by tea spoon per speech therapy. Pt's daughters are assisting pt to intake ice chips and water. Pt tolerating well without signs of aspiration.
--- NOTE | 2021-10-15 13:00 | NUR ---
Increased HR and BP since precedex stopped. Pt now in atrial fibrillation with several PVCs. Noted that pt is having runs of polymorphic ventricular tachycardia, resembling torsades. Per Dr Liu, 2 G mag be given. Discussed with pharmacist, noted this morning magnesium level as well as amount of mag in IV nutrition to be given. Precedex and zoloft stopped.
--- NOTE | 2021-10-15 18:28 | NUR ---
SUMMARY Neuro: A&O x 1. Answers questions, follows commands. More oriented and able to participate in care with family here. Cough and gag intact. Musculoskeletal: Moves all extremities equally. Weak in movement. Requires assist for all ADLs and repositioning. Respiratory: SpO2 90% or greater with 3 LPM NC, which is home dose of oxygen. Wears home BiPAP when asleep. Lungs coarse t/o. Loose, moist, productive cough but pt swallows sputum. Cardiac: Decresed ectopy noted this afternoon and evening. Pt got 2 G mag and one dose of labetalol. BP high/normal. Edema unchanged since initial assessment. GI: Tolerating water and ice chips well. Rectal tube patent and draining. : No urine output this shift. No dialysis today. Condom cath remains in place Skin: Unchanged from initial assessment. Psychosocial: Less anxious this shift. Precedesherwin dc'd. Daughters in to visit patient today.
--- NOTE | 2021-10-15 19:43 | NUR ---
RECEIVED REPORT ON THIS PATIENT AT 1915. PT IS SEDATED AND RESTING COMFORTABLY ON THE VENTILATOR USING PROPOFOL AND FENTANYL GTT. NO DISTRESS NOTED. DAUGHTER IS AT BEDSIDE. PT ALSO HAS A LEFT CHEST TUBE TO -20CM. NO DRAINAGE NOTED AT THIS TIME. PT HAS SUBQ-EMPHYSEMA THROUGHOUT THE HEAD, NECK, CHEST AND UPPER EXTREMETIES. PT FOLLOWING COMMANDS AND NODS HEAD TO YES AND NO QUESTIONS. PT LOWER EXTREMETIES APPEAR DUSKY AND MOTTLED. LOWER EXTREMETIES ARE ALSO COOL TO THE TOUCH. VENOUS DUPLEX DONE OF LOWER EXTREMETIES. WILL REVIEW RESULTS AND COORDINATE WITH MEDICAL TEAM TO ADDRESS THIS. MD AWARE OF LOWER EXTREMETY PULSE AND PERFUSION CHANGES. WILL CONTINUE TO MONITOR.
[2021-10-15 20:41] LABS: Hematocrit 25.7 % (37.0-53.0); Hemoglobin 8.4 g/dL (13.5-17.5); Mean Corpuscular HGB 31.1 pg (26.0-34.0); Mean Corpuscular HGB Conc 32.7 g/dL (31.5-36.5); Mean Corpuscular Volume 95 fL (80-100); Mean Platelet Volume 10.8 fL (9.1-12.4); Platelet Count 254 K/mm3 (150-400); RDW Coefficient Variation 17.2 % (11.7-14.2); RDW Standard Deviation 58.4 fL (35.1-46.3); White Blood Cell Count 10.59 K/mm3 (4.00-11.30)
[2021-10-15 21:03] LABS: Magnesium, Blood 3.2 mg/dL (1.6-2.4)
[2021-10-15 21:21] LABS: Albumin, Blood 1.7 g/dL (3.4-5.0); Anion Gap 21 mmol/L (6-16); Blood Urea Nitrogen 94 mg/dL (8-24); Bun/Creatinine Ratio 13.7 (12.0-20.0); CO2, Blood 17 mmol/L (21-32); Calcium, Blood 7.4 mg/dL (8.5-10.1); Chloride, Blood 102 mmol/L (98-108); Creatinine, Blood 6.85 mg/dL (0.60-1.20); Glomerular Filtration Rate 8 (60-); Glucose, Blood 156 mg/dL (70-99); Phosphorus, Blood 13.5 mg/dL (2.5-4.9); Sodium, Blood 140 mmol/L (136-145)
[2021-10-15 21:30] LABS: BAND PERCENT MAN 2 % (0-8); BASOPHILS PERCENT MAN 0 % (0-2); EOSINOPHILS PERCENT MAN 1 % (0-6); LYMPHOCYTES ABSOLUTE MAN 0.74 K/mm3 (0.84-5.20); LYMPHOCYTES PERCENT MAN 7 % (21-46); METAMYELOCYTE PERCENT MAN 1 % (0-0); MONOCYTES ABSOLUTE MAN 0.21 K/mm3 (0.16-1.47); MONOCYTES PERCENT MAN 2 % (4-13); NEUTROPHILS ABSOLUTE MAN 9.42 K/mm3 (1.96-9.15); SEG NEUTROPHILS PERCENT MAN 87 % (41-73); TOTAL CELLS COUNTED 100
--- NOTE | 2021-10-15 21:46 | NUR ---
PT HAVING ARRHYTHMIAS THROUGHOUT THE DAY. VTACH AND QUESTIONABLE COARSE VFIB ON THE MONITOR. MEDICAL TEAM HAS BEEN AWARE OF THIS SINCE EARLIER ON THIS DAY. DR. STRINGER CALLED ON CRITICAL PHOSPHORUS AND OTHER CHEMISTRY VALUES. INQUIRED ABOUT POSSIBLE HD TONIGHT BUT NO NEW ORDERS WERE GIVEN AND PT WILL BE DIALIZED TOMORROW MORNING. WILL CONTINUE TO MONITOR PATIENT.
--- NOTE | 2021-10-16 | NUR ---
PT FOLLOW UP ASSESSMENT COMPLETED. PT REMAINS COMFORTABLE IN BED AND APPEARS ASLEEP WITH HIS HOME CPAP IN PLACE. VSS. PT ASSESSMENT IS UNCHANGED FROM PREVIOUS ASSESSMENT. PT REPOSITIONED AND FLOATED ON PILLOWS. WILL CONTINUE TO MONITOR.
[2021-10-16 03:44] LABS: Hematocrit 25.6 % (37.0-53.0)
[2021-10-16 04:04] LABS: Magnesium, Blood 3.1 mg/dL (1.6-2.4)
--- NOTE | 2021-10-16 04:09 | NUR ---
REPEAT ASSESSMENT OF PT THIS HOUR. PT REMAINS ASLEEP IN BED ON CPAP MACHINE. PT HAS NOT HAD ANY SUSTAINED ARRYTHMIAS SINCE BEFORE MIDNIGHT. VITALS REMAIN STABLE AT THIS TIME. NO DISTRESS NOTED. WILL CONTINUE TO MONITOR.
[2021-10-16 05:05] LABS: Albumin, Blood 1.5 g/dL (3.4-5.0); Anion Gap 19 mmol/L (6-16); Blood Urea Nitrogen 103 mg/dL (8-24); Bun/Creatinine Ratio 14.5 (12.0-20.0); CO2, Blood 19 mmol/L (21-32); Calcium, Blood 7.1 mg/dL (8.5-10.1); Chloride, Blood 102 mmol/L (98-108); Creatinine, Blood 7.08 mg/dL (0.60-1.20); Glomerular Filtration Rate 7 (60-); Glucose, Blood 227 mg/dL (70-99); Potassium, Blood 3.7 mmol/L (3.5-5.5); Sodium, Blood 140 mmol/L (136-145); Triglycerides 377 mg/dL (30-160)
[2021-10-16 05:06] LABS: Phosphorus, Blood 13.2 mg/dL (2.5-4.9)
--- NOTE | 2021-10-16 07:45 | NUR ---
ASSUMED CARE: PT RESTING IN BED AT THIS TIME ON HOME CPAP SETTINGS. HSR NSR AT 67 WITH SOME PVCS. RECTAL TUBE IN PLACE WITH BROWN STOOL. NO ACUTE NEEDS OR CONCERNS AT THIS TIME.
--- NOTE | 2021-10-16 10:32 | NUR ---
DIALYSIS NURSE AT BEDSIDE. DR GOODSON CAME TO SEE PT AND IT WAS NOTED THAT PT WAS SOMNOLENT, WOULD ROUSE BUT APPEARS SLEEPY COMPARED TO YESTERDAY. DR GOODSON SPOKE WITH RT TO TRADE OUT PT'S BIPAP TO ONE OF HOSPITAL MACHINES. NO ACUTE NEEDS AT THIS TIME.
--- NOTE | 2021-10-16 14:19 | NUR ---
TRANSFERRED PT TO CHAIR VIA LIFT. PT STILL LETHARGIC BUT RESPONDS TO STAFF. CALL TO DR GOODSON TO MAKE HIM AWARE OF THIS. INSTRUCTS FOR ABG. RT AWARE.
[2021-10-16 14:41] LABS: PCO2 Arterial 32.5 mmHg (35-45); PO2 Arterial 59.9 mmHg (80-100)
[2021-10-16 14:43] LABS: pH Blood Arterial 7.53 (7.35-7.45)
--- NOTE | 2021-10-16 18:06 | NUR ---
SHIFT SUMMARY: PT HAS BEEN ON CPAP T/O DAY BUT ON OUR MACHINE RATHER THAN HOME MACHINE. SOMNOLENT ALL DAY BUT EASILY ROUSEABLE AND WILL ANSWER QUESTIONS. DISCUSSED ABG RESULT WITH DR GOODSON. NO NEW ORDERS OR CHANGES AT THIS TIME. UP IN CHAIR FOR SEVERAL HOURS THIS SHIFT WITH NO IMPROVEMENT IN MENTAL STATUS.
--- NOTE | 2021-10-16 21:11 | NUR ---
ASSUMED CARE PT RESTING IN BED WITH BIPAP ON WITH 2L BLEEDING THROUGH. BROWN/RED STOOL IN RECTAL TUBE BAG. PT WAKES TO VERBAL STIMULI AND RESPONDS APPROPRIATELY TO QUESTIONS, SOME REPEATING OF QUESTIONS NECESSARY. SCD'S APPLIED.
--- NOTE | 2021-10-16 21:38 | NUR ---
UPDATE PT WAS MOVED TO NC ON 2L AND SPO2 >92%. PT IS TOLERATING BEING ON NC FOR AN EXTENDED PERIOD OF TIME.
--- NOTE | 2021-10-16 22:21 | NUR ---
UPDATE PT WAS SOMULENT AND UNABLE TO ANSWER QUESTIONS WHEN BIPAP WAS TAKEN OFF TO PROVIDE
--- NOTE | 2021-10-17 00:37 | NUR ---
UPDATE PT MOVED BACK ONTO BIPAP FOR SLEEP. NOT VERBALIZING APPROPRIATELY; BUT NODS AND SHAKES HEAD APPROPRIATELY TO QUESTIONS. INITIALLY DID NOT WANT BIPAP ON, BUT THEN AGREED WHEN EDUCATING ON BENEFIT/RISKS OF BIPAP WHILE SLEEPING.
[2021-10-17 04:05] LABS: BASOPHILS ABSOLUTE AUTO 0.01 K/mm3 (0.00-0.23); BASOPHILS PERCENT AUTO 0 % (0-2); EOSINOPHILS ABSOLUTE AUTO 0.06 K/mm3 (0.00-0.68); EOSINOPHILS PERCENT AUTO 1 % (0-6); Hematocrit 22.7 % (37.0-53.0); Hemoglobin 7.3 g/dL (13.5-17.5); IMMATURE GRAN ABSOLUTE AUTO 0.25 K/mm3 (0.00-0.10); IMMATURE GRAN PERCENT AUTO 5 % (0-1); LYMPHOCYTES ABSOLUTE AUTO 0.53 K/mm3 (0.84-5.20); LYMPHOCYTES PERCENT AUTO 10 % (21-46); MONOCYTES ABSOLUTE AUTO 0.36 K/mm3 (0.16-1.47); MONOCYTES PERCENT AUTO 7 % (4-13); Mean Corpuscular HGB 30.5 pg (26.0-34.0); Mean Corpuscular HGB Conc 32.2 g/dL (31.5-36.5); Mean Corpuscular Volume 95 fL (80-100); NEUTROPHILS ABSOLUTE AUTO 4.24 K/mm3 (1.96-9.15); NEUTROPHILS PERCENT AUTO 78 % (41-73); Platelet Count 227 K/mm3 (150-400); RDW Coefficient Variation 16.7 % (11.7-14.2); RDW Standard Deviation 58.1 fL (35.1-46.3); Red Blood Cell Count 2.39 M/mm3 (4.30-5.90); White Blood Cell Count 5.45 K/mm3 (4.00-11.30)
[2021-10-17 04:31] LABS: Magnesium, Blood 2.6 mg/dL (1.6-2.4)
[2021-10-17 04:39] LABS: Albumin, Blood 1.5 g/dL (3.4-5.0); Anion Gap 12 mmol/L (6-16); Blood Urea Nitrogen 75 mg/dL (8-24); Bun/Creatinine Ratio 15.1 (12.0-20.0); CO2, Blood 27 mmol/L (21-32); Calcium, Blood 7.5 mg/dL (8.5-10.1); Chloride, Blood 98 mmol/L (98-108); Creatinine, Blood 4.97 mg/dL (0.60-1.20); Glomerular Filtration Rate 11 (60-); Glucose, Blood 251 mg/dL (70-99); Potassium, Blood 3.1 mmol/L (3.5-5.5); Sodium, Blood 137 mmol/L (136-145)
--- NOTE | 2021-10-17 07:19 | NUR ---
SHIFT SUMMARY PT WAS SOMULENT THROUGHOUT NIGHT AND WOKE TO VERBAL STIMULI. PT RESPONDS APPROPRIATELY BY NODDING/SHAKING HEAD, BUT STRUGGLES WITH VERBAL RESPONSES. PT TOLERATING NC ON 4L , RESPIRATORY THERAPY INFORMED. HR STABLE IN THE 70-80S, WITH SBP 150-180, MAP >65. SPO2 >92% WHILE ON BIPAP AND 2L NC DURING ORAL CARE. PT TOLERATED REPOSITIONING BEST WHILE USING LIFT.
--- NOTE | 2021-10-17 07:39 | NUR ---
ASSUMED CARE OF FADIA, HE IS NODDING AND SAYING WORDS IN RESPONSE TO QUESTIONS. HE ASKS FOR SOME WATER AND TAKES AN ENTIRE CUP FULL WITH SPOON. HE TOLERATED WELL, STATES THAT HE IS IN PAIN AND PAIN MED GIVEN PER MAR. RECTAL TUBE IN PLACE, CONDOM CATH ON WITH NO OUTPUT. PT CONTINUES TO SAY, "OUCH"
--- NOTE | 2021-10-17 13:30 | NUR ---
PT REQUESTED TO GO BACK TO BED, LIFT USED TO TAKE HIM BACK TO BED. RECTAL TUBE REMOVED AND PT CLEANED UP, THE LOOSE STOOL WAS LEAKING AROUND THE TUBE AND NOT DRAINING THROUGH. PT MORE COMFORTABLE IN BED, HEATING PAD PLACED UNDER HIM AND PT PUT ON THE LEFT SIDE.
--- NOTE | 2021-10-17 16:39 | NUR ---
ATTEMPTS AT REPOSITIONING PT AGAIN, CALL TO TO ORDER HIS ORIGINAL HOME PAIN MEDS.
--- NOTE | 2021-10-17 18:15 | NUR ---
FADIA HAS HAD AN EVENTFUL DAY, HE HAS WORKED WITH PT/OT/SPEECH THERAPY. HE HAS ADVANCED HIS DIET TO MECH SOFT, ABLE TO SWALLOW THIN LIQUIDS, HE HAS BEEN IN PAIN MOST OF THE DAY, WORKED ON GETTING HIM BACK ON HIS HOME PAIN MED REGIMEN. HE IS NOW RESTING QUIETLY WITH A SOFT SNORE. HE HAD A POWER GLIDE PLACED IN THE RIGHT UPPER ARM HIS RIGHT AC IS GETTING SORE, HIS RIGHT WRIST PIV CONTINUES WITH NS TKO AND ANTIBIOTIC THERAPY. HE HAS A CONDOM CATH WITH NO OUTPUT, RECTAL TUBE REMOVED, SMALL BREAKDOWN AT THE ANUS NOTED FROM TUBE. HE HAD A LIQUID STOOL AROUND THE TUBE BUT NONE SINCE REMOVAL. HIS EDEMA CONTINUES ESPECIALLY IN THE UPPER ARMS, HE IS MORE CLEAR HEADED TODAY AND APPROPRIATE. HE ANSWERS QUESTIONS, SAYS HE IS IN THE HOSPITAL TO GET STRONGER AND EXERCISE. HIS CULTURES CAME BACK POSITIVE FOR A NEW BACTEREMIA AND HIS ANTIBIOTICS WERE CHANGED. PAS ON, PPN INFUSING.
--- NOTE | 2021-10-17 20:45 | NUR ---
PATIENT AWAKE AND FEELING HUNGARY. PATIENT ASSISTED WITH EATING DINNER DUE TO WEAKNESS. PATIENT MIKE WELL BUT FEELING FULL ONLY AFTER EATING SMALL AMT OF HIS STEW AND FEW DRINKS OF MILK. PATIENT C/O BACK PAIN WITH REPOSITIONING. PATIENT MEDICATED WITH OXYCODONE BY DAY SHIFT AT 1652.
--- NOTE | 2021-10-17 21:47 | NUR ---
UPDATE PT CONDOM CATHETER DC'D DURING PERICARE. PT HAD 150ML OF OUTPUT. CATHETER TWISTING AND CAUSING PAIN TO PT D/T BLOCKAGE.
--- NOTE | 2021-10-17 22:37 | NUR ---
ASSUMED CARE PT LYING IN BED, ALERT AND ORIENTED. PT WAS ANSWERING QUESTIONS APPROPRIATELY. STILL HAVING DIFFICULTY WITH SPEAKING, BUT IS COHERENT. HR IN THE 80-90'S WITH SBP 170-180'S. LUNGS CLEAR WITH SPO2 >92% ON 2L NC.
--- NOTE | 2021-10-17 22:57 | NUR ---
UPDATE PT SBP >200. CHECKED RADIAL CUFF AND RAN TWICE WITH SIMILAR READINGS. 20MG LEBETALOL GIVEN AFTER CONSULTING PRECEPTOR PANTERA. BP IS NOW 180/57.
[2021-10-18 03:44] LABS: BASOPHILS ABSOLUTE AUTO 0.01 K/mm3 (0.00-0.23); BASOPHILS PERCENT AUTO 0 % (0-2); EOSINOPHILS PERCENT AUTO 2 % (0-6); Hematocrit 20.9 % (37.0-53.0); Hemoglobin 6.8 g/dL (13.5-17.5); IMMATURE GRAN ABSOLUTE AUTO 0.19 K/mm3 (0.00-0.10); IMMATURE GRAN PERCENT AUTO 4 % (0-1); LYMPHOCYTES ABSOLUTE AUTO 0.62 K/mm3 (0.84-5.20); LYMPHOCYTES PERCENT AUTO 13 % (21-46); MONOCYTES ABSOLUTE AUTO 0.47 K/mm3 (0.16-1.47); MONOCYTES PERCENT AUTO 10 % (4-13); Mean Corpuscular HGB 30.6 pg (26.0-34.0); Mean Corpuscular HGB Conc 32.5 g/dL (31.5-36.5); Mean Corpuscular Volume 94 fL (80-100); Mean Platelet Volume 10.8 fL (9.1-12.4); NEUTROPHILS ABSOLUTE AUTO 3.56 K/mm3 (1.96-9.15); NEUTROPHILS PERCENT AUTO 72 % (41-73); Platelet Count 213 K/mm3 (150-400); RDW Coefficient Variation 16.2 % (11.7-14.2); Red Blood Cell Count 2.22 M/mm3 (4.30-5.90); White Blood Cell Count 4.95 K/mm3 (4.00-11.30)
[2021-10-18 04:05] LABS: Albumin, Blood 1.5 g/dL (3.4-5.0); Anion Gap 14 mmol/L (6-16); Blood Urea Nitrogen 97 mg/dL (8-24); Bun/Creatinine Ratio 16.1 (12.0-20.0); CO2, Blood 25 mmol/L (21-32); Calcium, Blood 7.1 mg/dL (8.5-10.1); Chloride, Blood 95 mmol/L (98-108); Creatinine, Blood 6.01 mg/dL (0.60-1.20); Glomerular Filtration Rate 9 (60-); Glucose, Blood 194 mg/dL (70-99); Magnesium, Blood 2.4 mg/dL (1.6-2.4); Phosphorus, Blood 6.4 mg/dL (2.5-4.9); Potassium, Blood 3.3 mmol/L (3.5-5.5); Sodium, Blood 134 mmol/L (136-145)
--- NOTE | 2021-10-18 06:21 | NUR ---
SHIFT SUMMARY PT ALERT AND ORIENTED THROUGHOUT SHIFT, ANSWERING QUESTIONS APPROPRIATELY. STILL STRUGGLING WITH VERBALIZATION, BUT NODS AND SHAKES. PT IS PAINFUL WHEN REPOSITIONING. HR IN THE 80-90S WITH SOME PAC'S. BP'S 160-180S WITH A PERIOD WHERE IT CLIMBED TO 200. 20MG OF LABETALOL GIVEN. LUNG SOUNDS CLEAR WITH DIM MID/BASES. SPO2 >92% ON 2L NC AND BIPAP WHILE SLEEPING. PT HAD OUTPUT OF 150ML AND CONDOM CATH WAS REMOVED.
[2021-10-18 11:07] LABS: Hemoglobin 7.6 g/dL (13.5-17.5)
--- NOTE | 2021-10-18 18:13 | NUR ---
SUMMARY PT AWAKE AND ALERT MOST OF THE DAY. SLOW TO RESPOND BUT DOES RESPOND APPROPRIATELY. HAS PAIN ALL OVER BODY. GOT UP TO CHAIR WITH LIFT THIS AFTERNOON. HAD DIALYSIS THIS AM WITH ONE UNIT OF PRBC'S. DOBHOFF WAS PLACED DUE TO PT HAVING A POOR APPETITE AND TRYING TO GET OFF PPN DUE TO POOR IV ACCESS. TUBE FEEDING INITIATED PER ORDERS AND PT ENCOURAGE TO EAT MEALS WELL. WAS DOWNGRADED TO PCU STATUS TODAY. NO SIGN OF DISTRESS.
--- NOTE | 2021-10-18 20:22 | NUR ---
ASSUMED CARE PT LYING IN BED SLEEPING WITH BIPAP ON, 2L BLEEDING THROUGH. PT AROUSES EASILY TO VERBAL STIMULI AND RESPONDS APPROPRIATELY TO QUESTIONS BY NODDING AND SHAKING HEAD. PT IS ALERT AND ORIENTED TO SELF, SURROUNDINGS, AND FOLLOWS COMMANDS. HR IN THE 80-90S, MAP >65. SPO2 >92% ON BIPAP.
--- NOTE | 2021-10-19 01:09 | NUR ---
UPDATE TUBE FEEDING TITRATED UP TO 30MLS AN HOUR.
[2021-10-19 03:52] LABS: BASOPHILS ABSOLUTE AUTO 0.01 K/mm3 (0.00-0.23); BASOPHILS PERCENT AUTO 0 % (0-2); EOSINOPHILS ABSOLUTE AUTO 0.06 K/mm3 (0.00-0.68); EOSINOPHILS PERCENT AUTO 1 % (0-6); Hemoglobin 7.4 g/dL (13.5-17.5); IMMATURE GRAN ABSOLUTE AUTO 0.11 K/mm3 (0.00-0.10); IMMATURE GRAN PERCENT AUTO 3 % (0-1); LYMPHOCYTES ABSOLUTE AUTO 0.73 K/mm3 (0.84-5.20); LYMPHOCYTES PERCENT AUTO 17 % (21-46); MONOCYTES ABSOLUTE AUTO 0.54 K/mm3 (0.16-1.47); MONOCYTES PERCENT AUTO 13 % (4-13); Mean Corpuscular HGB 30.7 pg (26.0-34.0); Mean Corpuscular HGB Conc 32.2 g/dL (31.5-36.5); Mean Corpuscular Volume 95 fL (80-100); Mean Platelet Volume 10.4 fL (9.1-12.4); NEUTROPHILS ABSOLUTE AUTO 2.75 K/mm3 (1.96-9.15); NEUTROPHILS PERCENT AUTO 66 % (41-73); Platelet Count 192 K/mm3 (150-400); RDW Coefficient Variation 16.6 % (11.7-14.2); RDW Standard Deviation 57.5 fL (35.1-46.3); Red Blood Cell Count 2.41 M/mm3 (4.30-5.90)
[2021-10-19 04:10] LABS: Bun/Creatinine Ratio 14.2 (12.0-20.0); Calcium, Blood 7.6 mg/dL (8.5-10.1); Creatinine, Blood 5.44 mg/dL (0.60-1.20); Potassium, Blood 3.7 mmol/L (3.5-5.5)
--- NOTE | 2021-10-19 05:41 | NUR ---
PT IS ALERT AND ORIENTED TO SURROUNDINGS, SELF, AND SITUATION. PT HAS BEEN ON BIPAP WHILE SLEEPING WITH 2L BLEEDING THROUGH SPO2 >92%. HR IN THE 90'S AND MAP >65. DOBHOFF IN PLACE WITH TUBE FEEDING AT 30ML PER HOUR AND 30ML FLUSH Q4H.
--- NOTE | 2021-10-19 08:00 | NUR ---
Recieved report from Maile RN and Oscar RN. Patient is sleeping with BIPAP 14/6 on [facility] and sats >90%. I awoke him for assessment and for ST to work with him. Rep[ositioned and boosted for Eval. Placed him on 2L O2 via NC and sats mid to upper 90%'s. He4 has 18ga PowerGlide in right upper arm and is infusing NS TKO. He has Dobhoff in left nares and is infusing Nephro 1.8 at 30ml/hr with 30ml water flush Q4. He has left upper arm fistula and dialysis tomorrow. He states pain in right arm and chest and states normal for quiet a while.
--- NOTE | 2021-10-19 10:09 | NUR ---
ST eval unchanged and he ate about 75% of breakfast with assisstance. He remains on 2L O2 via NC and sats 97%. PT was by as well and he tolerated minimal workout. Plan ids to get up in chair.
--- NOTE | 2021-10-19 11:32 | NUR ---
Patient is up in chair, family at bedside. Dr alarcon was in with family and patient reviewing plan of care and outcomes. medicated patient for right arm , abdominal and chest discomfort. He remains on 2L O2 via NC and sats >90%. meds given through Dobhoff.
--- NOTE | 2021-10-19 13:30 | NUR ---
Patient has been up in chair tolerated 60% of lunch. Family at chairside. TF continues at 40 ml/hr Nephro 1.8 with 30 ml water flushes Q4. He remains on 2L O2via NC and sats >90%. VSS. He has been resting. NS TKO continues
--- NOTE | 2021-10-19 15:30 | NUR ---
Patient still up in chair and is tolerating well. He asked to go back to bed to rest. family continues at chairside. No significant changes with patient.
--- NOTE | 2021-10-19 17:52 | NUR ---
Patient back in bed with lift. he remains on 2L O2 via NC and sats 95%. Changed PowerGlide dressing. PG infusing NS TKO. Bath given aon transfer to bed with linen change. Neck and abdomen pain and too early to medicated and repositioned for comfort.
--- NOTE | 2021-10-19 22:14 | NUR ---
ASSUMED CARE AT 1900 PT IS LAYING IN BED WATCHING TV AT SHIFT CHANGE. HE IS ALERT BUT SLOW TO RESPOND, AND ORIENTED X3; HE IS ABLE TO SLOWLY STATE HIS NAME, TOWN, SURROUNDINGS, AND DAUGHTERS NAMES, UNSURE OF TIME AND YEAR; HE DOES NOT USE CALL LIGHT; PROFOUND WEAKNESS NOTED. PT STARTED OUT ON RA BUT SWITCHED TO BIPAP ONCE HE FELL ASLEEP; BIPAP SETTINGS 16/10 WITH 2L BLEED IN; WEAK PRODUCTIVE COUGH NOTED. AFEBRILE. HR 90-110; BP STABLE. NEPRO INFUSING VIA DOBHOFF AT 50ML/HR (GOAL) WITH 30ML WATER FLUSHES Q4HR. FISTULA TO LT ARM; THRILL AND BRUIT NOTED. SEE SHIFT ASSESSMENT FOR FULL ASSESSMENT.
[2021-10-20 04:34] LABS: Hematocrit 23.3 % (37.0-53.0); Hemoglobin 7.6 g/dL (13.5-17.5)
[2021-10-20 04:57] LABS: Albumin, Blood 1.6 g/dL (3.4-5.0); Anion Gap 10 mmol/L (6-16); Blood Urea Nitrogen 99 mg/dL (8-24); Bun/Creatinine Ratio 14.1 (12.0-20.0); CO2, Blood 26 mmol/L (21-32); Calcium, Blood 7.5 mg/dL (8.5-10.1); Chloride, Blood 101 mmol/L (98-108); Creatinine, Blood 7.01 mg/dL (0.60-1.20); Glomerular Filtration Rate 8 (60-); Glucose, Blood 139 mg/dL (70-99); Magnesium, Blood 2.6 mg/dL (1.6-2.4); Phosphorus, Blood 7.6 mg/dL (2.5-4.9); Sodium, Blood 137 mmol/L (136-145)
--- NOTE | 2021-10-20 06:33 | NUR ---
END OF SHIFT SUMMARY NO ACUTE EVENTS OVER NIGHT AND HE SLEPT FOR MOST OF THE NIGHT. NO CHANGES IN NEURO STATUS, A&O X3. WHILE SLEEPING PT ON BIPAP 11/12 WITH 2L BLEED IN; SPO2 >93%; WEAK COUGH CONT. HR 90-100. BP STABLE. TWO MED LOOSE STOOLS THIS SHIFT. DOBHOFF IN PLACE WITH NEPRO INFUSING AT GOAL. ONE EPISODE OF URNINARY INCONTINENCE. POWERGLIDE TO NELDA TREVIÑO. WILL REPORT TO AM RN WHEN AVAILABLE.
--- NOTE | 2021-10-20 12:12 | NUR ---
REASSESSMENT PT IS SITTING UP IN THE CHAIR FOR LUNCH. HE IS AWAKE, ANSWERS SIMPLE QUESTIONS BUT NOT CONSISTENTLY. SOMETIMES HE LOOKS LIKE HE IS TRYING TO COME UP WITH THE ANSWER BUT DOESN'T EVER ANSWER. WAS ABLE TO SAY HE IS IN [place]. PT HAVING GENERALIZED PAIN. ANSWERS YES TO IT BEING IN HIS BACK AND STOMACH. HE WILL SUDDNELY WINCE AND JERK LIKE HE IS HAVING A SPASM, BUT IS NOT ABLE TO SAY IF THAT IS TRUE. PRN OXYCODONE GIVEN THIS MORNING. PRN FENTANYL AVAILABLE WELL, BUT ALSO TRYING TO PRESERVE MENTATION FOR LUNCH. AT REPORT THIS MORNING PT'S DOBHOFF NOTED TO BE AT ABOUT 75CM. LATER THIS MORNING TAPE HAD COME OFF DOBHOFF AND IT WAS AT 56CM. TUBE FEED STOPPED. XRAY OBTAINED AND TIP WAS IN THE ESOPHAGUS. ATTEMPTED TO ADVANCE DOBHOFF AND WAS ABLE TO ADVANCE IT A LITTLE, WAITING FOR THOSE XRAY RESULTS. ENVIRONMENTAL COMMUNICATIONS SPECIALIST ALSO PLACED ORDERS TO SWITCH TUBE FEED TO NOC ONLY SO IF NEEDED, WILL REPLACE DOBHOFF THIS EVENING BEFORE RESTARTING TUBE FEED. SPEECH SAW PT THIS AM AND LEFT CURRENT ORDERS IN PLACE. ENCOURAGING PO INTAKE. LUNGS ARE CLEAR, ON RA. SR WITH PAC, BP STABLE. PT HAD DIALYSIS THIS AM. SPOKE WITH PT'S BEAU VIA TELEPHONE AND PROVIDED UPDATE. CONTINUING TO MONITOR.
--- NOTE | 2021-10-20 14:44 | NUR ---
AMAN ADVANCED AND PLACEMENT IN THE STOMACH OR DUODENUM CONFIRMED BY DR. BHAT. NEW MARKING IS 90CM.
--- NOTE | 2021-10-20 16:03 | NUR ---
TRANSFER PT CONTINUED TO DO WELL THIS AFTERNOON. HE STAYED UP IN THE CHAIR UNTIL 1530. DOBHOFF WAS ABLE TO BE ADVANCED. PT STILL WINCES AND SAYS OW SPORADICALLY, BUT PT SOMETIMES SAYS HE IS NOT HAVING PAIN, OTHER TIMES SAYS HE IS. RESPONSES ARE VERY INCONSISTENT AND DELAYED IF HE DOES RESPOND. PT TRANSFERRED TO U 10. REPORT GIVEN TO MELY FOX. ALL BELONGINGS TRANSFERRED WITH PT. PT TOLERATED TRANSFER WELL. VM LEFT AT PT'S [employer] PHONE NUMBER.
--- NOTE | 2021-10-20 16:08 | NUR ---
TRANSFER TO [facility] PT ARRIVED TO [facility] AT APPROXIMATELY 1550. PT OPENS EYES TO VERBAL STIMULI, NOT RESPONDING WITH WORDS, JUST NODDING YES OR NO. VSS, SpO2> 92% RA, A-FIB 100's. CALL LIGHT IN REACH, BED IN LOWEST POSITION, BED ALARM ON.
--- NOTE | 2021-10-20 20:12 | NUR ---
2 L VIA NC PLACED D/T PT SATS 89-90% ON RA
--- NOTE | 2021-10-20 23:09 | NUR ---
FAMILY UPDATE THIS RN SPEAKS WITH DAUGHTER DAVID AND PROVIDES UPDATE ON PT.
[2021-10-21 04:05] LABS: Hematocrit 22.2 % (37.0-53.0); Hemoglobin 7.1 g/dL (13.5-17.5)
[2021-10-21 04:29] LABS: Albumin, Blood 1.5 g/dL (3.4-5.0); Anion Gap 11 mmol/L (6-16); Blood Urea Nitrogen 89 mg/dL (8-24); Bun/Creatinine Ratio 13.8 (12.0-20.0); CO2, Blood 28 mmol/L (21-32); Calcium, Blood 7.9 mg/dL (8.5-10.1); Chloride, Blood 97 mmol/L (98-108); Creatinine, Blood 6.46 mg/dL (0.60-1.20); Glomerular Filtration Rate 8 (60-); Glucose, Blood 133 mg/dL (70-99); Magnesium, Blood 2.5 mg/dL (1.6-2.4); Phosphorus, Blood 6.6 mg/dL (2.5-4.9); Potassium, Blood 3.9 mmol/L (3.5-5.5); Sodium, Blood 136 mmol/L (136-145)
--- NOTE | 2021-10-21 07:37 | NUR ---
SHIFT SUMMARY PT ALERT, RESPONDS TO VERBAL STIMULI. OCCASIONALLY ANSWERS QUESTIONS, FOLLOWS COMMANDS SUCH SQUEEZING THIS RN'S HANDS WHEN ASKED TO. DOES NOT RESPOND TO ORIENTING QUESTIONS. OCCASIONALLY GROANS AND SQUINTS. STATES TO THIS RN WHEN ASKED WHERE PAIN IS THAT IT IS "EVERYWHERE". PT HAD NO FURTHER INCIDENTS OF GRABBING OR PULLING AT DOBHOFF AFTER SHIFT CHANGE. BREATHING EVEN, SHALLOW. APPEARS UNLABORED. LS CLEAR/DIM. SATS 89-91% ON RA. PLACED ON 2 L AT START OF SHIFT AND THEN BIPAP AFTER TRAFFIC WORKER. PT APPEARS TO TOLERATE MEDS CRUSHED IN APPLESAUCE WELL. TF CONTINUES THROUGH SHIFT. TURNED DOWN AT 0500 TO 35 MLS/HR AND STOPPED AT 0600. PT HAS SOME SMALL EPISODES OF LOOSE STOOL AT START OF SHIFT AND EARLY AM. SKIN BREAKDOWN NOTED TO KEELY AREA AT COCCYX AND BELOW SCROUTUM TO ANTERIOR START OF BUTTOCKS FOLD IN TRUONG AREA. PHOTOS PLACED IN CHART. PT REPOSITIONED Q2. MULTIPLE STAFF NEEDED. MEPILEX PLACED TO COCCYX. PT PAINFUL WITH REPOSITIONING. APPEARS TO BE RESTFUL AND SLEEP WELL AND UNDISTURBED FOR A FEW HOURS THIS AM FOLLOWING DOSE OF OXYCODONE PO AND UNDISTURBED REST.
--- NOTE | 2021-10-21 18:15 | NUR ---
SHIFT SUMMARY Pt weak though arouses to verbal stimuli. Oriented to self and staff. Follows some very simple commands though difficulty is noted d/t significant weakness. Occasionally verbalizes needs or responses which seem appropriate though rare. Tele in place, NSR/ST w/PVC's, BP stable, edema noted t/o. L/S coarse/dim bases, O2 sat stable t/o majority of shift on RA though requires 2L this evening to maintain sat in the 90's. Seen by PMD, new d/o received. Family at bedside earlier in shift, update provided, questions addressed. Plan of care discussed with care team, plan to continue encourage PO intake, will cont to use TF at NOC until PO is adequate. No s/s of acute distress at this time, cont to monitor until rpt is given to NOC RN.
[2021-10-22 03:47] LABS: Hematocrit 22.8 % (37.0-53.0); Hemoglobin 7.2 g/dL (13.5-17.5)
[2021-10-22 04:13] LABS: Magnesium, Blood 2.9 mg/dL (1.6-2.4)
[2021-10-22 04:16] LABS: Albumin, Blood 1.5 g/dL (3.4-5.0); Anion Gap 12 mmol/L (6-16); Blood Urea Nitrogen 116 mg/dL (8-24); Bun/Creatinine Ratio 13.7 (12.0-20.0); CO2, Blood 26 mmol/L (21-32); Calcium, Blood 7.9 mg/dL (8.5-10.1); Chloride, Blood 97 mmol/L (98-108); Creatinine, Blood 8.44 mg/dL (0.60-1.20); Glomerular Filtration Rate 6 (60-); Glucose, Blood 142 mg/dL (70-99); Phosphorus, Blood 8.4 mg/dL (2.5-4.9); Potassium, Blood 4.7 mmol/L (3.5-5.5); Sodium, Blood 135 mmol/L (136-145)
--- NOTE | 2021-10-22 05:31 | NUR ---
SHIFT SUMMARY PT ALERT AND ORIENTED TO PERSON, , AND OCCASIONALLY PLACE. WILL RESPOND WHILE CONVERSING INCONSTENTLY. BONILLA BUT WEAKER ON LEFT SIDE. PT ON 2LPM VIA NC INITIALLY, ON BIPAP T/O NIGHT, NOW BACK ON NC c SATS >90%. TF AT GOAL DURING NIGHT, TITRATED DOWN FOR 1 HR, WILL TURN OFF PRIOR TO 0700. NO BM NOR URINE OUT THIS SHIFT. VSS.
--- NOTE | 2021-10-22 12:34 | NUR ---
DIALYSIS TX NOTE TX COMPLETED, UNABLE TO RETURN BLOOD D/T CLOTTED DIALYZER.
--- NOTE | 2021-10-22 15:28 | NUR ---
Time spent in hallway with daughter Khloe [phone] while pt receiving PT visit/therapy. RN contacted me regarding Khloe's request for assist with completing a durable POA. I left message with madeleine for assist on Sunday if possible. According to RN and Khloe, pt is not expressive with verbal communication but is interacting and answering questions appropriately. He may be unable to physically sign. Sebastian informed that photo ID needed for all signers and that dixieary may not be able to help if they cannot determine level of understanding and/or if pt is unable to at least soni on his signature line. Sary has been in the hospital for a number of weeks, starting in ICU and was ventilated for a period of time. I reviewed advanced care planning with Khloe, as was done early in his admission. Pt has ESRD and is a HD pt prior to this admission. On the day of admission pt requested full code status, which was consistent with his previous wishes. Pt's has severe dementia and resides in LTC x years now. Pt normally lives alone with sebastian in same community checking on him and helping him get to medical appointments. Khloe is unclear if her dad is nearing d/c timeframe or what the d/c plan will be. I discussed CM assist with her, for when her dad is medically ready for d/c and there is a dialysis appointment available for him as an OP. I encouraged Khloe to touch bases with CM early next week and I will also leave them a message that Khloe would like to review dc plans. Khloe and her sister have become pt's surrogate decision makers, when he is unable, due to his 's progressing dementia. Plan to follow up on Sunday to see if we can assist with notorizing documents that were started prior to admission.
--- NOTE | 2021-10-22 17:39 | NUR ---
SHIFT SUMMARY PT ALERT TO SELF, FAMILY, AND STAFF. PT UNABLE TO VERBALIZE WHERE HE IS OR HIS NAME AND . PT ANSWERING Y/N QUESTIONS APPROPIATLEY AND HAS SPOKE VERY FEW SENTENCES. PT FOLLOWS SIMPLE COMMANDS AND IS ABLE TO EXPRESS WHEN IN PAIN, BUT UNABLE TO STATE WHERE THE PAIN IS LOCATED. PT JUST STATES "EVERYWHERE" WHEN ASKED WHERE THE PAIN IS, TREATED PER EMAR. PT O2 SATS DROPPED TO 80'S WHILE PHYSICAL THERAPY WAS WORKING WITH PT, PT WAS ON RA AT THE TIME. 2L NC APPLIED SATS RETURNED TO 90'S. OTHER VSS THROUGHOTU SHIFT. NO REPORT OF CHEST PAIN/PRESSURE. PT HAD DIALYSIS TODAY, SEE DEPARTMENT STORE DOOR GREETER NOTES. PT DAUGHTERS WERE AT BEDSIDE, PALLIATIVE CONTACTED ABOUT POWER OF ENGINEERING MODEL MAKER COMPLETION, SEE PALLIATIVE NOTES. PT DAUGHTER REPORTED "MY DAD HAD ME WORRIED YESTERDAY BECAUSE HE DID NOT SAY MUCH. HE WAS TALKING ALOT MORE TODAY." UNDOCUMENTED ELIMINATION NOTICED DURING LINEN CHANGE THIS MORNING, SEE TECH I&O'S.
[2021-10-23 05:54] LABS: Hematocrit 23.2 % (37.0-53.0); Hemoglobin 7.4 g/dL (13.5-17.5); Mean Corpuscular HGB 30.2 pg (26.0-34.0); Mean Corpuscular HGB Conc 31.9 g/dL (31.5-36.5); Mean Corpuscular Volume 95 fL (80-100); Mean Platelet Volume 10.8 fL (9.1-12.4); Platelet Count 240 K/mm3 (150-400); RDW Coefficient Variation 15.4 % (11.7-14.2); RDW Standard Deviation 53.4 fL (35.1-46.3); Red Blood Cell Count 2.45 M/mm3 (4.30-5.90); White Blood Cell Count 4.16 K/mm3 (4.00-11.30)
[2021-10-23 06:08] LABS: Albumin, Blood 1.9 g/dL (3.4-5.0); Anion Gap 9 mmol/L (6-16); Blood Urea Nitrogen 80 mg/dL (8-24); CO2, Blood 29 mmol/L (21-32); Calcium, Blood 8.3 mg/dL (8.5-10.1); Chloride, Blood 101 mmol/L (98-108); Creatinine, Blood 6.69 mg/dL (0.60-1.20); Glomerular Filtration Rate 8 (60-); Glucose, Blood 152 mg/dL (70-99); Magnesium, Blood 2.8 mg/dL (1.6-2.4); Phosphorus, Blood 6.7 mg/dL (2.5-4.9); Potassium, Blood 4.5 mmol/L (3.5-5.5); Sodium, Blood 139 mmol/L (136-145)
--- NOTE | 2021-10-23 06:40 | NUR ---
Assumed care of pt at 1900. GIOVANNA A/O status except name as patient very minimally says anything. Yes/no questions are answered, but not consistently. Fever max of 101.1 axillary, tylenol given and temp returned to WNL. C/o pain "everywhere", repositioned and medicated with PRN with good relief. Weakness noted in all extremities, L>R. Maintains over 93% on 2L NC or CPAP HS, desats to mid 80's on RA. LS clear upper and dim at bases. SR-ST on tele low 100's. BP stable. Generalized 1+ nonpitting edema, and 2+ nonpitting edema to L arm. HIMA fistula with bruit and thrill. Dobbhoff with TF running cyclic overnight per orders, patient tolerates well. Patient is oliguric, with a very scant spot of urine. Steristrips to RCW, no new drainage noted. Q2 turns with lift. Will report to dayscarrie BOONE.
--- NOTE | 2021-10-23 08:28 | NUR ---
ASSUMED CARE OF PT AT 0700 PT SLEEPING IN ROOM. NO VISITORS AT THIS TIME. VITALS STABLE. SEE ASSESSMENT FOR MORE INFO.
--- NOTE | 2021-10-23 17:14 | NUR ---
END OF SHIFT SUMMARY DIALYSIS IN ROOM WITH PT AT THIS TIME. PER GENERAL ASSISTANT THIS IS NOT A FULL SESSION, THE PLAN IS TO TRY TO PULL 4 LITERS OF FLUID OFF TODAY IN 2 HOURS. TF TO BE STARTED AFTER DIALYSIS IS DONE. NO URINE OUTPUT THIS SHIFT. NO BM THIS SHIFT. O2 SATS DROPPED TO 88-89. 2L O2 NC INITIATED. PT REPORTS PAIN WITH ANY MOVEMENT MADE BY STAFF. PAIN NOT MANAGED WELL WITH ORDERED PRN PAIN MEDICATIONS AT THIS TIME. PT SEEN PULLING AT [facility] THIS AM AND REPORT OF DISPLACEMENT MADE BY PRIOR SHIFTS. CHEST XRAY DONE TODAY CONFIRMING PLACEMENT IS CORRECT. LS COARSE IN LOWER LOBES THIS AFTERNOON WITH NO CHANGES FROM OTHER SHIFTS REPORTED. WILL CONTINUE TO MONITOR UNITL HAND OFF.
--- NOTE | 2021-10-23 19:26 | NUR ---
DIALYSIS NOTE HD TX ULTRA FILTRATION ONLY, REDUCED UF GOAL TO 3.4L DT PT COMPLAINT OF MUSCLE CRAMPING.
[2021-10-24 03:13] LABS: Hematocrit 22.4 % (37.0-53.0); Hemoglobin 6.8 g/dL (13.5-17.5)
[2021-10-24 03:33] LABS: Anion Gap 11 mmol/L (6-16); Blood Urea Nitrogen 101 mg/dL (8-24); Bun/Creatinine Ratio 12.7 (12.0-20.0); CO2, Blood 27 mmol/L (21-32); Calcium, Blood 8.4 mg/dL (8.5-10.1); Chloride, Blood 99 mmol/L (98-108); Creatinine, Blood 7.98 mg/dL (0.60-1.20); Glomerular Filtration Rate 6 (60-); Glucose, Blood 171 mg/dL (70-99); Phosphorus, Blood 6.4 mg/dL (2.5-4.9); Potassium, Blood 4.4 mmol/L (3.5-5.5); Sodium, Blood 137 mmol/L (136-145)
--- NOTE | 2021-10-24 05:53 | NUR ---
Patient is A/Ox4 and much more talkative today, joking around and using full sentences and carrying conversation. VSS. Hgb this am low, Dr. Humphries contacted and order for 2 units PRBC to be transfused with dialysis. Daughter Khloe called and updated, will be here this am to work with case management. TF ran last night per emar with no complaints. Patient has not had a bowel movement in days, and very scant urine output. Still reports pain "everywhere" relieved with repositioning q2 and medications per emar. Will report to kevyn BOONE.
--- NOTE | 2021-10-24 11:29 | NUR ---
Arranged for Santi to assist pt/nik today. Spoke with Nik, Khloe, in pt's room while her dad was in dialysis. Answered questions re: possible options for d/c and updated CM that Khloe would like to touch bases and start dc planning with her.
--- NOTE | 2021-10-24 17:01 | NUR ---
PT AOX1-2 AND HAS BEE COOPERATIVE OF CARE. PT RECIEVE DIALYSIS TODAY. PT NEEDS TURNED Q2 HRS. PT WAS BATHED TODAY AND NEEDS THREE PEOPLE TO HELP. PT WAS HAVING MUSCLE SPASMS AND DR JOSEPH ADDED MEDS TO EMAR. NO DISTRESS NOTED AT THIS TIME WILL CONTINE TO MONITOR.
[2021-10-25 04:06] LABS: Hematocrit 30.3 % (37.0-53.0); Hemoglobin 9.6 g/dL (13.5-17.5)
[2021-10-25 04:27] LABS: Albumin, Blood 2.1 g/dL (3.4-5.0); Anion Gap 5 mmol/L (6-16); Blood Urea Nitrogen 66 mg/dL (8-24); Bun/Creatinine Ratio 10.6 (12.0-20.0); CO2, Blood 35 mmol/L (21-32); Calcium, Blood 9.2 mg/dL (8.5-10.1); Chloride, Blood 100 mmol/L (98-108); Creatinine, Blood 6.25 mg/dL (0.60-1.20); Glomerular Filtration Rate 9 (60-); Glucose, Blood 108 mg/dL (70-99); Magnesium, Blood 2.9 mg/dL (1.6-2.4); Phosphorus, Blood 5.5 mg/dL (2.5-4.9); Potassium, Blood 4.7 mmol/L (3.5-5.5); Sodium, Blood 140 mmol/L (136-145)
--- NOTE | 2021-10-25 05:12 | NUR ---
At beginning of shift, patient was very different from the previous night. A/O to self, didn't follow directions and wasn't redirectable and attempting to pull at tubes. This is similar to 2 nights ago. Fever noted with a high of 100.3, ice packs applied and cold washcloth on forehead. Once fever broke, patients mentation returned and was redirectable and having conversations. Patient was medicated with PRN for pain with good relief. Night tube feeds were DC'd on dayscoft, to note, the patient has very poor and inconsistent oral intake. Was able to get patient to drink a Nepro drink. BP was low during the night with MAP hovering 60-65. MAP towards end of shift was 65+. Q2 turned. Will report to dayscoft RN.
--- NOTE | 2021-10-25 18:08 | NUR ---
SHIFT SUMMARY PT A&O TO SELF ONLY. THIS EVENING PT ABLE TO STATE LOCATION "IN [facility]." PT REORIENTED TO LOCATION, BUT PT MENTATION IMPROVING. PT MORE ALERT T/O DAY, SLEEPING INTERMITTENTLY. PT ADVANCED FROM PUREE DIET TO MECHANICAL SOFT DIET BY ST. PT TOLERATING WELL. DOBHOFF REMAINS IN PLACE, CLAMPED. GEOTHERMAL HEAT PUMP MACHINIST REPORTING WILL CONTINUE TO ASSESS PT NEED FOR POTENTIALLY RESTARTING TF VIA DOBHOFF IF PO INTAKE NOT ADEQUATE. PT VSS. SPO2 > 92% ON 2L NC. MONITOR SHOWING SR, HR 80s-90s. PT W/ NO URINE OUTPUT. BM TODAY, ONLY A SMEAR NOTED WHEN PERFORMING ROUTINE KEELY CARE. SKIN FOLDS RED. SKIN CARE PROVIDED. PT UNABLE TO ASSIST W/ REPOSITIONING, REQUIRING 2 PERSON MAX ASSIST FOR REPOSITIONING IN BED.
[2021-10-26 04:35] LABS: BASOPHILS ABSOLUTE AUTO 0.02 K/mm3 (0.00-0.23); BASOPHILS PERCENT AUTO 1 % (0-2); EOSINOPHILS ABSOLUTE AUTO 0.15 K/mm3 (0.00-0.68); EOSINOPHILS PERCENT AUTO 4 % (0-6); Hemoglobin 8.8 g/dL (13.5-17.5); IMMATURE GRAN ABSOLUTE AUTO 0.01 K/mm3 (0.00-0.10); IMMATURE GRAN PERCENT AUTO 0 % (0-1); LYMPHOCYTES ABSOLUTE AUTO 0.85 K/mm3 (0.84-5.20); LYMPHOCYTES PERCENT AUTO 23 % (21-46); MONOCYTES ABSOLUTE AUTO 0.39 K/mm3 (0.16-1.47); MONOCYTES PERCENT AUTO 11 % (4-13); Mean Corpuscular HGB 30.4 pg (26.0-34.0); Mean Corpuscular HGB Conc 31.4 g/dL (31.5-36.5); Mean Corpuscular Volume 97 fL (80-100); Mean Platelet Volume 10.6 fL (9.1-12.4); NEUTROPHILS PERCENT AUTO 62 % (41-73); Platelet Count 239 K/mm3 (150-400); RDW Coefficient Variation 15.4 % (11.7-14.2); RDW Standard Deviation 54.4 fL (35.1-46.3); Red Blood Cell Count 2.89 M/mm3 (4.30-5.90); White Blood Cell Count 3.72 K/mm3 (4.00-11.30)
[2021-10-26 04:58] LABS: Albumin, Blood 2.1 g/dL (3.4-5.0); Anion Gap 9 mmol/L (6-16); Blood Urea Nitrogen 93 mg/dL (8-24); Bun/Creatinine Ratio 11.9 (12.0-20.0); CO2, Blood 32 mmol/L (21-32); Calcium, Blood 9.6 mg/dL (8.5-10.1); Chloride, Blood 97 mmol/L (98-108); Creatinine, Blood 7.84 mg/dL (0.60-1.20); Glomerular Filtration Rate 7 (60-); Glucose, Blood 112 mg/dL (70-99); Magnesium, Blood 3.1 mg/dL (1.6-2.4); Phosphorus, Blood 6.6 mg/dL (2.5-4.9); Potassium, Blood 4.8 mmol/L (3.5-5.5); Sodium, Blood 138 mmol/L (136-145)
--- NOTE | 2021-10-26 05:58 | NUR ---
SHIFT SUMMARY: PT. REMAINED STABLE OVERNIGHT, BP IS SLIGHTLY ELEVATED, HR IN THE 90S IN IRREGULAR RHYTHM. PT. SATTED OVER 95% ALL THROUGHOUT THE NIGHT WHILE WEARING HIS CPAP AND IS CURRENTLY SATTING 93% ON 2L NC. PT. DID NOT VOID OR HAVE A BM OVERNIGHT. PT. IS ALERT AND ORIENTED AND ABLE TO FOLLOW COMMANDS AND USE CALL LIGHT WHEN NEEDED. PT. RESTING IN BED AT THIS TIME.
--- NOTE | 2021-10-26 13:12 | NUR ---
PT ARRIVED BACK FROM DIALYSIS, VSS, CBG DONE AND DOBHOFF REMOVED. PT ALERT AND WILL ATTEMPT TO FEED.
--- NOTE | 2021-10-26 15:21 | NUR ---
Spiritual care visit conducted. Pt is not very verbal except to say, "oh man, oh man." and would answer yes and no a couple of times. He said yes to having a difficult time and yes to prayer. I gladly provide prayer. Pt nods yes at the conclusion of the prayer.
--- NOTE | 2021-10-26 17:45 | NUR ---
NO ACUTE EVENTS T/O THE SHIFT, PT AWAKE AND ALERT THIS AM, ATE 40% OF BREAKFAST. PT TO HD TODAY, HAS BEEN SLEEPING MOST OF THE DAY SINCE RETURNING TO ROOM AND DID NOT EAT LUNCH OR DINNER. PT PLACED ON BIPAP AT BEDSIDE WHILE SLEEPING. DOBHOFF REMOVED PER MD ORDERS. CALL LIGHT IN REACH, BED ALARM ON FOR SAFETY, WILL CONTINUE TO MONITOR AND GIVE REPORT TO NOC SHIFT RN.
[2021-10-27 05:50] LABS: Hemoglobin 8.8 g/dL (13.5-17.5)
[2021-10-27 06:09] LABS: Albumin, Blood 2.1 g/dL (3.4-5.0); Anion Gap 9 mmol/L (6-16); Blood Urea Nitrogen 73 mg/dL (8-24); Bun/Creatinine Ratio 10.8 (12.0-20.0); CO2, Blood 33 mmol/L (21-32); Calcium, Blood 9.1 mg/dL (8.5-10.1); Chloride, Blood 95 mmol/L (98-108); Creatinine, Blood 6.75 mg/dL (0.60-1.20); Glomerular Filtration Rate 8 (60-); Glucose, Blood 115 mg/dL (70-99); Magnesium, Blood 2.7 mg/dL (1.6-2.4); Phosphorus, Blood 5.8 mg/dL (2.5-4.9); Potassium, Blood 4.4 mmol/L (3.5-5.5); Sodium, Blood 137 mmol/L (136-145)
--- NOTE | 2021-10-27 07:17 | NUR ---
NOC SHIFT SUMMARY PT SLEPT WELL OVERNIGHT, ON BIPAP CONSISTENTLY. ORIENTED X2, NO COMPLAINTS OF PAIN. SR/ST ON TELEMETRY. VSS PER PT TREND. SWALLOWING PILLS W/APPLESAUCE WITH NO ISSUE. BEDREST/Q2 TURNS. PT ANURIC. NO COMPLAINTS OF PAIN OR DISCOMFORT.
--- NOTE | 2021-10-27 10:50 | NUR ---
[place] of Care: Care assumed at this time. Patient alert and oriented, sitting upright in chair. Denies needs at this time. Call light in reach, makes needs known. Will continue to monitor.
--- NOTE | 2021-10-27 17:48 | NUR ---
Shift Summary: No significant changes since assumption of care. Patient worked with PT/OT today while up in chair. Remains weak throughout, but participated in therapy. C/o pain to back when getting back to bed and receiving bed bath. Prn flexeril and oxycodone given with good effect. Patient sleeping throughout remainder of shift. Rousing to verbal and tactile stimuli. VS remain stable. Will continue to monitor until report to NOC shift RN.
[2021-10-28 03:35] LABS: Hematocrit 30.3 % (37.0-53.0); Hemoglobin 9.5 g/dL (13.5-17.5)
[2021-10-28 03:46] LABS: Magnesium, Blood 2.6 mg/dL (1.6-2.4)
[2021-10-28 04:29] LABS: Anion Gap 11 mmol/L (6-16); Blood Urea Nitrogen 99 mg/dL (8-24); Bun/Creatinine Ratio 11.8 (12.0-20.0); CO2, Blood 32 mmol/L (21-32); Calcium, Blood 8.7 mg/dL (8.5-10.1); Chloride, Blood 92 mmol/L (98-108); Creatinine, Blood 8.39 mg/dL (0.60-1.20); Glomerular Filtration Rate 6 (60-); Glucose, Blood 102 mg/dL (70-99); Phosphorus, Blood 6.4 mg/dL (2.5-4.9); Potassium, Blood 4.7 mmol/L (3.5-5.5); Sodium, Blood 135 mmol/L (136-145)
--- NOTE | 2021-10-28 05:56 | NUR ---
NOC SHIFT SUMMARY PT SLEPT SOUNDLY OVERNIGHT, ON CPAP W/4L BLEED IN. NO COMPLAINTS OF PAIN EXCEPT WITH REPOSITIONING. PT ANURIC, NO BM. VSS PER PT TREND. LETHARGIC BUT ORIENTED TO SELF AND PLACE. OCCASIONALLY JUST RESPONDS TO QUESTIONS BY LAUGHING. ON CPAP OVERNIGHT W/3-4L BLEED IN. WILL PASS ON TO DAY RN ```````` ```````` ```````` ```````` ```````` ```````` ```````` ```````` ```````` ```````` ```````` ````````
--- NOTE | 2021-10-28 17:07 | NUR ---
SHIFT SUMMARY PT REMAINS SOMEWHAT CONFUSED BUT IS PLEASANT AND COOPERATIVE WITH CARE. PT HAD DIALYSIS TODAY WELL WORKED WITH PHYSICAL/OCCUPATIONAL THERAPY. HE KNOWS THAT HE IS IN THE HOSPITAL BUT THOUGHT THAT HE WAS IN [place] AND THAT THE YEAR WAS 1970. C/O LOWER BACK PAIN AND TREATED PER EMR. VSS. UP IN THE CHAIR WITH THE USE OF THE CEILING LIFT. CALL LIGHT IN REACH.
--- NOTE | 2021-10-29 04:20 | NUR ---
SHIFT SUMMARY; PATIENT ARRIVED TO MED FLOOR FROM PCU SHORTLY AFTER SHIFT CHANGE. HE IS ORIENTED TO SELF ON ARRIVAL. PATIENT IS REPOSITIONED AND IS PLACED ON CAMERA AFTER THIS RN NOTIFIED NURSING STEMMING MACHINE OPERATOR OF PATIENT BEING ORIENTED TO SELF ONLY AND BEING A FALL RISK. RT PLACED PATIENT ON HIS HOME CPAP MACHINE WITH 4 LITER BLEED IN OF O2. HIS NEW FISTULA HAS BRUIT NOTED. HE RECEIVED DIALYSIS YESTERDAY AND WILL PROBABLY NOT RECEIVE DIALYSIS TODAY. HE IS ON A 1 LITER FLUID RESTRICTION AND SCD'S ARE PLACED PER ORDER. PATIENT IS A FEEDER AND KNOCK OUT HAND IS NOTIFIED SO SHE CAN PASS ON IN REPORT TO ONCOMING KNOCK OUT HAND AT DAY SHIFT REPORT.
[2021-10-29 05:19] LABS: Hematocrit 30.2 % (37.0-53.0); Hemoglobin 9.1 g/dL (13.5-17.5)
[2021-10-29 05:41] LABS: Magnesium, Blood 2.9 mg/dL (1.6-2.4)
[2021-10-29 05:59] LABS: Albumin, Blood 2.2 g/dL (3.4-5.0); Anion Gap 10 mmol/L (6-16); Blood Urea Nitrogen 74 mg/dL (8-24); Bun/Creatinine Ratio 10.3 (12.0-20.0); CO2, Blood 28 mmol/L (21-32); Calcium, Blood 9.5 mg/dL (8.5-10.1); Chloride, Blood 98 mmol/L (98-108); Creatinine, Blood 7.19 mg/dL (0.60-1.20); Glomerular Filtration Rate 7 (60-); Glucose, Blood 113 mg/dL (70-99); Phosphorus, Blood 5.9 mg/dL (2.5-4.9); Potassium, Blood 4.5 mmol/L (3.5-5.5); Sodium, Blood 136 mmol/L (136-145)
--- NOTE | 2021-10-29 06:05 | NUR ---
PATIENT TRYING TO GET UP OUT OF BED 0530 TODAY. HE REFUSES HIS SYNTHROID MEDICATION. PATIENT NOTED TO BE GRIMACING AND HOLDING HIS BACK. HE TRIES TO THROW HIS LEFT LEG OVER RAILING. THIS RN TRIES TO REDIRECT PATIENT HOWEVER HE IS CUSSING AND TELLS RN THAT "BY GOD I AM LEAVING" PATIENT IS REMINDED THAT HE IS TOO WEAK TO STAND. PATIENT DENIES THAT HE IS WEAK. HE ADMITS TO PAIN BUT IS VERY PARANOID ABOUT TAKING MEDICATION AND SAYS HE DOES NOT NEED IT AND WANTS THIS RN TO CALL THE MD AND SEND HIM HOME. PATIENT IS PROVIDED WITH WATER AND OFFERED SNACK WHICH HE REFUSES. THIS RN SITTING OUTSIDE OF HIS DOOR TO MONITOR HIM CLOSELY.
--- NOTE | 2021-10-29 08:00 | NUR ---
pt laying in bed with cpap in place, irritable when woke up, took po meds without diff, one at a time, a/ox2, somewhat cooperative with care, follows commands, lungs are clear dim in bases, resp even and unlabored, at rest, on 4 liters 02 when off cpap, no cough noted, hrr, trace edema noted, ppp faint, cap refill <3sec, vs stable, afebrile, iv to rac, site is clear and patent, btx4, abd large soft nontender, briefs in place, skin has red mike area, powder applied, can move legs, helped staff to move him up in bed for breakfast, very thirsty, adelfo, call light in reach.
--- NOTE | 2021-10-29 18:13 | NUR ---
pt has been sleeping most of the day, he did work with therapy, and wakes for meals, and has been turned, no acute changes this shift. call light in reach.
[2021-10-30 05:59] LABS: Hematocrit 26.6 % (37.0-53.0); Hemoglobin 8.3 g/dL (13.5-17.5)
--- NOTE | 2021-10-30 06:22 | NUR ---
Rn summary: Patient is alert to self. He did not know the month, year or president. He did think he was in a clinic in [place]. Patient is able to turn with some assist. Mepilex drsg to coccyx was changed, area not red, or open, preventative. Pt did take O2 off and O2 sats dropped to 70. O2 reapplied and sats recovered quickly to the mid 90's. Patient did wear his cpap with 4 liters bleed in. Patient has not c/o pain. He is oluric and has not voided. Rested well with no distress.
[2021-10-30 06:53] LABS: Albumin, Blood 2.1 g/dL (3.4-5.0); Anion Gap 11 mmol/L (6-16); Blood Urea Nitrogen 97 mg/dL (8-24); Bun/Creatinine Ratio 10.4 (12.0-20.0); CO2, Blood 29 mmol/L (21-32); Calcium, Blood 9.4 mg/dL (8.5-10.1); Chloride, Blood 94 mmol/L (98-108); Creatinine, Blood 9.37 mg/dL (0.60-1.20); Glomerular Filtration Rate 5 (60-); Glucose, Blood 104 mg/dL (70-99); Phosphorus, Blood 6.3 mg/dL (2.5-4.9); Potassium, Blood 4.8 mmol/L (3.5-5.5); Sodium, Blood 134 mmol/L (136-145)
--- NOTE | 2021-10-30 17:48 | NUR ---
PT PLEASANT TODAY. NO C/O PAIN TODAY. DID GO TO DIALYSIS THIS AM. DID HAVE LARGE BM TODAY. WAS ABLE TO USE LIFT TO GET HIM TO BSC. 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 NO NEW CONCERNS NOTED TODAY. BED IN LOW POSITION, CALL LITE IN REACH, BD ALARM ON FOR SAFETY
--- NOTE | 2021-10-31 04:58 | NUR ---
SHIFT SUMMARY 76 YR M ADMITTED FOR FEVER AND DECONDITIONING. NO ACUTE CHANGES THIS SHIFT. PT WAS GRUMPY WITH STAFF ASKING US TO HELP HIM. WHEN WE ASKED WHAT HE NEEDED HELP WITH HE WOULD NOT GIVE US AN ANSWER BUT STATED THAT WE JUST DON'T WANT TO HELP. HE C/O BACK PAIN AND WAS MEDICATED PER EMAR. RT SET HIM UP W/ CPAP AND HE WORE IT FOR MOST OF THE NIGHT. O2 SATS AHVE BEEN GOOD IN THE UPPER 90'S.
[2021-10-31 05:23] LABS: Hematocrit 28.5 % (37.0-53.0); Hemoglobin 8.8 g/dL (13.5-17.5)
[2021-10-31 05:52] LABS: Albumin, Blood 2.6 g/dL (3.4-5.0); Anion Gap 9 mmol/L (6-16); Blood Urea Nitrogen 67 mg/dL (8-24); Bun/Creatinine Ratio 9.8 (12.0-20.0); CO2, Blood 32 mmol/L (21-32); Calcium, Blood 9.8 mg/dL (8.5-10.1); Chloride, Blood 96 mmol/L (98-108); Creatinine, Blood 6.81 mg/dL (0.60-1.20); Glomerular Filtration Rate 8 (60-); Glucose, Blood 111 mg/dL (70-99); Magnesium, Blood 2.7 mg/dL (1.6-2.4); Phosphorus, Blood 4.9 mg/dL (2.5-4.9); Potassium, Blood 4.1 mmol/L (3.5-5.5); Sodium, Blood 137 mmol/L (136-145)
--- NOTE | 2021-10-31 18:13 | NUR ---
PATIENT HAS BEEN APPROPRIATE THIS SHIFT, COOPERATIVE WITH CARE. HE COMPLAINS OF SEVERE LOWER BACK PAIN THAT WORSENS WITH INHALATION. THIS SHIFT HE HAD NORCO, AND A FLEXERIL. BLOOD SUGARS CARED FOR WITH INSULIN. DRESSINGS CHANGED ON COCCYX AND RIGHT HEEL, LEFT HEEL DRESSING IN TACT. NO OPEN AREAS. PATIENT DID NOT HAVE DIALYSIS TODAY.
[2021-11-01 04:56] LABS: Hematocrit 27.7 % (37.0-53.0); Hemoglobin 8.5 g/dL (13.5-17.5)
[2021-11-01 05:12] LABS: Magnesium, Blood 2.8 mg/dL (1.6-2.4)
[2021-11-01 05:24] LABS: Albumin, Blood 2.5 g/dL (3.4-5.0); Anion Gap 8 mmol/L (6-16); Blood Urea Nitrogen 84 mg/dL (8-24); CO2, Blood 31 mmol/L (21-32); Calcium, Blood 9.6 mg/dL (8.5-10.1); Chloride, Blood 93 mmol/L (98-108); Creatinine, Blood 8.42 mg/dL (0.60-1.20); Glomerular Filtration Rate 6 (60-); Glucose, Blood 107 mg/dL (70-99); Phosphorus, Blood 5.6 mg/dL (2.5-4.9); Sodium, Blood 132 mmol/L (136-145)
--- NOTE | 2021-11-01 05:26 | NUR ---
Rn summary: Patient is more alert and oriented than last sunday. Pt did know the month and year tonight, besides name,b-day and where he is. Pt is very weak and is a max 2 assist to turn in bed. Patient has slept with CPAP and 4 liter bleed in tonight. O2 sats have been 92-93%. Pt was medicated with percocet 2 tabs for back pain. minda heal protectors on. Pt does not call for needs, he just sleeps or is quiet. Pt did rest well. Will continue to monitor.
[2021-11-01] MEDS ORDERED: CLARITIN10 M2 PO (16:34)
[2021-11-01] MEDS ORDERED: PANT40 PO (16:39)
[2021-11-01] MEDS ORDERED: Vitamin B-Comp1 EACH PO (16:41)
[2021-11-01] MEDS ORDERED: SENN187 PO (16:43)
[2021-11-01] MEDS ORDERED: MIRALAX17 GM PO (16:44)
[2021-11-01] MEDS ORDERED: ALCIS59.15 ML TOP (16:45)
--- NOTE | 2021-11-01 18:42 | NUR ---
PATIENT PLANS TO ADMIT TO [facility] TOMORROW AFTER DIALYSIS. PATIENT HAS DIALYSIS AT [facility] AT 9AM., HE NEEDS TO HAVE COVID SWAB DONE RIGHT AWAY IN THE MORNING SO THAT HE IS ABLE TO ADMIT TO [facility]. MEDICATION REC FOR DISCHARGE SHOULD BE NOTED MANY MEDS ON THE EMAR ARE NOT ON THE DOCTORS LIST. CHARGE NURSE BACILIO WAS CALLING PROVIDER TO FIND OUT IF THEY WERE ABLE TO SEE OUR SYSTEM AND ADJUST WITH THE COMBINATION OF THE TWO LISTS WHICH SEEM TO BE SOMWHAT DIFFERENT. PATIENT WAS PLEASANT TODAY, AND DID HAVE DIALYSIS. BUMEX WAS HELD DUE TO THE PATIENT HAVING DIALYSIS.
[2021-11-01] MEDS ORDERED: ELIQUIS5 M2 PO (20:28)
[2021-11-01] MEDS ORDERED: ALUMINUM H320 MG/5 M PO (20:28)
[2021-11-01] MEDS ORDERED: MULTIPLE VITAM1 EACH PO (20:35)
[2021-11-01] MEDS ORDERED: NALOXONE H0.4 MG/1 M IM (20:36)
[2021-11-02 07:15] LABS: Albumin, Blood 2.3 g/dL (3.4-5.0); Anion Gap 8 mmol/L (6-16); Blood Urea Nitrogen 54 mg/dL (8-24); Bun/Creatinine Ratio 8.7 (12.0-20.0); CO2, Blood 35 mmol/L (21-32); Calcium, Blood 8.8 mg/dL (8.5-10.1); Chloride, Blood 97 mmol/L (98-108); Creatinine, Blood 6.22 mg/dL (0.60-1.20); Glomerular Filtration Rate 9 (60-); Glucose, Blood 105 mg/dL (70-99); Magnesium, Blood 2.5 mg/dL (1.6-2.4); Phosphorus, Blood 4.7 mg/dL (2.5-4.9); Potassium, Blood 4.6 mmol/L (3.5-5.5); Sodium, Blood 140 mmol/L (136-145)
[2021-11-02 07:46] LABS: Influenza A, PCR NEGATIVE (NEGATIVE); Influenza B, PCR NEGATIVE (NEGATIVE); Resp Syncytial Virus, PCR NEGATIVE (NEGATIVE); SARS-Cov-2 (COVID-19) PCR, MMC NEGATIVE (NEGATIVE)
[2021-11-02 08:25] LABS: Hematocrit 26.9 % (37.0-53.0); Hemoglobin 8.2 g/dL (13.5-17.5)
[2021-11-02] MEDS ORDERED: ALBU90OI INH (08:56)
[2021-11-02] MEDS ORDERED: BUME2 PO (09:22)
[2021-11-02] MEDS ORDERED: PANT40 PO (09:26)
[2021-11-02] MEDS ORDERED: NEPHRO-VITE PO (09:33)
--- NOTE | 2021-11-02 12:07 | NUR ---
Discharge Summary A/Ox2-3, discharging to [facility] after heading to [facility] for dialysis, bumex held for this reason. Report given to Rosales at [facility]. D/C with sling. Copy of [facility] script made and placed in chart, original given to front loader residential driver. Personal belonging sent with patient.
== END 2021-11-02 09:39 | DRG 270 ==
LOC: ER 14:27 → PCU 17:16 → ICUW 17:16 → ICUE 17:16 → PCU 19:47 → ICUE 10-10 09:33 → ICUW 10-14 19:41 → PCU 10-20 16:07 → MEDS 10-28 21:46 → ENPENDDIS 11-01 15:59 → MEDS 11-02 09:39
PROVIDERS: Emergency Medicine; Family Medicine; Hospitalist; Internal Medicine Critical Care Medicine; Internal Medicine Gastroenterology; Internal Medicine Nephrology; ADMIT Internal Medicine
PROC: 3E03329 Introduction of Other Anti-infective into Peripheral Vein, Percutaneous Approach (ICD-10-PCS; 2021-10-05)
PROC: 02PY33Z Removal of Infusion Device from Great Vessel, Percutaneous Approach (ICD-10-PCS; 2021-10-06)
PROC: 5A1945Z Respiratory Ventilation, 24-96 Consecutive Hours (ICD-10-PCS; 2021-10-10)
PROC: 0DJ08ZZ Inspection of Upper Intestinal Tract, Via Natural or Artificial Opening Endoscopic (ICD-10-PCS; 2021-10-10)
PROC: 02HV33Z Insertion of Infusion Device into Superior Vena Cava, Percutaneous Approach (ICD-10-PCS; 2021-10-10)
PROC: 30233N1 Transfusion of Nonautologous Red Blood Cells into Peripheral Vein, Percutaneous Approach (ICD-10-PCS; 2021-10-10)
PROC: B41BYZZ Fluoroscopy of Other Intra-Abdominal Arteries using Other Contrast (ICD-10-PCS; 2021-10-10)
PROC: 3E033XZ Introduction of Vasopressor into Peripheral Vein, Percutaneous Approach (ICD-10-PCS; 2021-10-10)
PROC: 5A1D70Z Performance of Urinary Filtration, Intermittent, Less than 6 Hours Per Day (ICD-10-PCS; 2021-10-10)
PROC: 0BH18EZ Insertion of Endotracheal Airway into Trachea, Via Natural or Artificial Opening Endoscopic (ICD-10-PCS; principal; 2021-10-10 17:00)
PROC: 04L23DZ Occlusion of Gastric Artery with Intraluminal Device, Percutaneous Approach (ICD-10-PCS; 2021-10-11)
PROC: 5A09357 Assistance with Respiratory Ventilation, Less than 24 Consecutive Hours, Continuous Positive Airway Pressure (ICD-10-PCS; 2021-10-15)
DX: T80.211A Bloodstream infection due to central venous catheter, initial encounter (principal); A41.01 Sepsis due to Methicillin susceptible Staphylococcus aureus; J69.0 Pneumonitis due to inhalation of food and vomit; J96.21 Acute and chronic respiratory failure with hypoxia; R65.21 Severe sepsis with septic shock; N18.6 End stage renal disease; G92.8 Other toxic encephalopathy; R57.8 Other shock; I47.2 Ventricular tachycardia; K92.2 Gastrointestinal hemorrhage, unspecified; I13.2 Hypertensive heart and chronic kidney disease with heart failure and with stage 5 chronic kidney disease, or end stage renal disease; Z68.41 Body mass index [BMI] 40.0-44.9, adult; E87.1 Hypo-osmolality and hyponatremia; E78.5 Hyperlipidemia, unspecified; G89.29 Other chronic pain; M54.59 Other low back pain; K59.00 Constipation, unspecified; D63.1 Anemia in chronic kidney disease; Z99.2 Dependence on renal dialysis; R13.10 Dysphagia, unspecified; E83.41 Hypermagnesemia; Z20.822 Contact with and (suspected) exposure to COVID-19; E03.9 Hypothyroidism, unspecified; E11.42 Type 2 diabetes mellitus with diabetic polyneuropathy; R94.31 Abnormal electrocardiogram [ECG] [EKG]; K21.9 Gastro-esophageal reflux disease without esophagitis; Z88.8 Allergy status to other drugs, medicaments and biological substances; Z91.048 Other nonmedicinal substance allergy status; E11.22 Type 2 diabetes mellitus with diabetic chronic kidney disease; N40.0 Benign prostatic hyperplasia without lower urinary tract symptoms; E20.9 Hypoparathyroidism, unspecified; Z98.890 Other specified postprocedural states; Z87.891 Personal history of nicotine dependence; Z79.899 Other long term (current) drug therapy; Z79.82 Long term (current) use of aspirin; G47.33 Obstructive sleep apnea (adult) (pediatric); I50.9 Heart failure, unspecified; E66.9 Obesity, unspecified; E87.5 Hyperkalemia; E83.39 Other disorders of phosphorus metabolism; E87.6 Hypokalemia; E87.70 Fluid overload, unspecified
CPT/HCPCS: 0241U; 31500; 36415; 36430; 36600; 37244; 70450; 71045; 74174; 75726; 75774; 76705; 76937; 80048; 80053; 80069; 80076; 80202; 81001; 82272; 82803; 82947; 83605; 83735; 84100; 84145; 84478; 84484; 85014; 85018; 85025; 85027; 86850; 86900; 86901; 86923; 87040; 87070; 87077; 87086; 87186; 87205; 92526; 92610; 93005; 93010; 93308; 93312; 93321; 93325; 93971; 94002; 94003; 94640; 94660; 94664; 94762; 96365; 96366; 97110; 97112; 97162; 97166; 97530; 97535; 98960; 99152; 99153; 99285-25; A9270; C1751; C1760; C1769; C1887; C1894; C9113; J0171; J0295; J0690; J0881; J1430; J1644; J2250; J2370; J2405; J2700; J2704; J3010; J3370; J3411; J3475; J3480; J7030; J7040; J7050; J7060; J7131; P9016; P9047; Q9967

== ENCOUNTER 2022-01-20 05:02 | Inpatient (IN) | payer OTHER ==
[~2022-01-20] VITALS: Ht 175.3 cm; Wt 118.0 kg
[~2022-01-20 05:02] MED LIST changes: +ALBU90OI INH; +ALCIS59.15 ML TOP; +ALUMINUM H320 MG/5 M PO; +BUME2 PO; +CLARITIN10 M2 PO; +Calcium Acetat667 MG PO; +ELIQUIS5 M2 PO; +METSALMENC TOP; +MIRALAX17 GM PO; +MULTIPLE VITAM1 EACH PO; +NALOXONE H0.4 MG/1 M IM; +NEPHRO-VITE PO; +PANT40 PO; +SENN187 PO; +SERT25 PO; +Vitamin B-Comp1 EACH PO
[2022-01-20 06:03] LABS: BASOPHILS ABSOLUTE AUTO 0.02 K/mm3 (0.00-0.23); BASOPHILS PERCENT AUTO 1 % (0-2); EOSINOPHILS ABSOLUTE AUTO 0.19 K/mm3 (0.00-0.68); EOSINOPHILS PERCENT AUTO 4 % (0-6); Hematocrit 25.1 % (37.0-53.0); Hemoglobin 7.8 g/dL (13.5-17.5); IMMATURE GRAN ABSOLUTE AUTO 0.02 K/mm3 (0.00-0.10); IMMATURE GRAN PERCENT AUTO 1 % (0-1); LYMPHOCYTES ABSOLUTE AUTO 0.66 K/mm3 (0.84-5.20); LYMPHOCYTES PERCENT AUTO 15 % (21-46); MONOCYTES ABSOLUTE AUTO 0.45 K/mm3 (0.16-1.47); MONOCYTES PERCENT AUTO 10 % (4-13); Mean Corpuscular HGB 30.2 pg (26.0-34.0); Mean Corpuscular HGB Conc 31.1 g/dL (31.5-36.5); Mean Corpuscular Volume 97 fL (80-100); Mean Platelet Volume 9.8 fL (9.1-12.4); NEUTROPHILS ABSOLUTE AUTO 3.06 K/mm3 (1.96-9.15); NEUTROPHILS PERCENT AUTO 70 % (41-73); Platelet Count 236 K/mm3 (150-400); RDW Coefficient Variation 15.2 % (11.7-14.2); RDW Standard Deviation 53.4 fL (35.1-46.3); Red Blood Cell Count 2.58 M/mm3 (4.30-5.90)
[2022-01-20 06:23] LABS: Albumin, Blood 2.5 g/dL (3.4-5.0); Albumin/Globulin Ratio 0.5 (0.8-1.8); Bilirubin, Total 0.4 mg/dL (0.1-1.0); Bun/Creatinine Ratio 6.5 (12.0-20.0); Calcium, Blood 8.7 mg/dL (8.5-10.1); Creatinine, Blood 6.88 mg/dL (0.60-1.20); Globulin, Blood 4.7 g/dL (2.2-4.0); Total Protein, Blood 7.2 g/dL (6.4-8.2)
[2022-01-20] MEDS ORDERED: CETI5 PO (06:52)
[2022-01-20] MEDS ORDERED: CYCL10 PO (06:52)
[2022-01-20] MEDS ORDERED: DOCU100 PO (06:52)
[2022-01-20] MEDS ORDERED: MIDODRINE HCL10 M1 PO (06:53)
--- NOTE | 2022-01-20 18:20 | NUR ---
PT DIALYSIS STOPPED 5 MINUTES EARLY DUE TO PT PAIN 12/05. RN CALL TO ROOM TO ATTEND TO PT. IV FENTANYL GIVEN TO PT BY ED RN. DR QUIÑONES TO REEVALUATE PT FOR PROBABLE ADMIT. HIMA FISTULA CLAMPED [facility]. REPORT GIVEN TO KELVIN BARRON RN. PT LEFT IN STABLE CONDITION HEMODYNAMICALLY. SKIP
--- NOTE | 2022-01-20 21:16 | NUR ---
ADMIT NOTE HANDOFF RECEIVED FROM DRUG SAFETY ASSOCIATEMELY [facility]. PT ARRIVED TO FLOOR VIA GURNEY. PT ORIENTED TO UNIT. CALL BUTTON WITHIN REACH.
--- NOTE | 2022-01-21 04:41 | NUR ---
SHIFT SUMMARY ADMITTED FOR ESRD/RIGHT SIDED ABDOMINAL PAIN. FULL CODE. PLAN IS FOR DIALYSIS, CT SCAN REVEALS INFLAMMATION AROUND AORTA. BLOOD CULTURES DRAWN. REPEAT CT IN ONE WEEK. STEROIDS SCHEDULED. HTN NOTED. CPAP @ HS, CONT. PULSE OX IN PLACE. LUE FISTULA. ACHS CBG'S, LOW SS. DR. STRINGER IS RENAL CONSULT. RENAL DIET. DIALYSIS RECEIVED IN ER JUST PREVIOUS TO ADMIT.
[2022-01-21 06:12] LABS: Potassium, Blood 5.3 mmol/L (3.5-5.5)
--- NOTE | 2022-01-21 06:19 | NUR ---
24 HR URINE COLLECTION START STARTED URINE COLLECTION FOR URINE PROTEIN TEST AT 0615 HRS
[2022-01-21 07:09] LABS: COMPLEMENT C3, SERUM 154 mg/dL (82-167); COMPLEMENT C4, SERUM 48 mg/dL (12-38)
[2022-01-21 07:32] LABS: Albumin, Blood 2.4 g/dL (3.4-5.0); Albumin/Globulin Ratio 0.5 (0.8-1.8); Bilirubin, Total 0.2 mg/dL (0.1-1.0); Bun/Creatinine Ratio 5.6 (12.0-20.0); Calcium, Blood 9.1 mg/dL (8.5-10.1); Creatinine, Blood 6.56 mg/dL (0.60-1.20); Globulin, Blood 4.7 g/dL (2.2-4.0); Total Protein, Blood 7.1 g/dL (6.4-8.2)
--- NOTE | 2022-01-21 14:36 | NUR ---
BLOOD CULTURES LAB CALLED WITH + BLOOD CX'S, GM+ COCCI IN CLUSTERS. PLACED CALL TO NIRMALA SALAZAR. AWARE.
[2022-01-21 19:09] LABS: ANA DIRECT Positive (Negative); ANTI-DNA (DS) AB QN 85 IU/mL (0-9); RNP ANTIBODIES <0.2 AI (0.0-0.9); SJOGREN'S ANTI-SS-A <0.2 AI (0.0-0.9); SJOGREN'S ANTI-SS-B <0.2 AI (0.0-0.9); SMITH ANTIBODIES <0.2 AI (0.0-0.9)
--- NOTE | 2022-01-21 19:17 | NUR ---
SHIFT SUMMARY PT A&O X 4. VSS. PT WENT TO DIALYSIS THIS MORNING. RETURNED AT LUNCH TIME. C/O ABD PAIN, MEDICATED WITH PERCOCET WITH GOOD RESULTS. PT RESTED COMFORTABLY WITH EYES CLOSED, RESP EVEN & UNLABORED. PRELIMINARY BLOOD CX RESULTS CAME BACK GM+ COCCI IN CLUSTERS. ORDERED ANTI BIOTICS. PT's IV INFILTRATED, DC'D AND 4 ATTEMPTS TO START NEW ONE WAS UNSUCCESFUL. PT MAY LIKELY NEED A POWER GLIDE. PT IS 1 ASSIST WITH FWW FOR RESTROOM USE. PT PLEASANT & COOPERATIVE WITH ALL CARE. USES CALL LIGHT APPROPRIATELY FOR NEEDS. REPORT GIVEN TO DC BOONE.
[2022-01-22 05:45] LABS: Hematocrit 24.1 % (37.0-53.0); Hemoglobin 7.6 g/dL (13.5-17.5)
[2022-01-22 06:07] LABS: Magnesium, Blood 2.2 mg/dL (1.6-2.4)
[2022-01-22 06:08] LABS: Albumin, Blood 2.5 g/dL (3.4-5.0); Anion Gap 8 mmol/L (6-16); Blood Urea Nitrogen 28 mg/dL (8-24); Bun/Creatinine Ratio 5.2 (12.0-20.0); CO2, Blood 28 mmol/L (21-32); Calcium, Blood 9.3 mg/dL (8.5-10.1); Chloride, Blood 99 mmol/L (98-108); Creatinine, Blood 5.34 mg/dL (0.60-1.20); Glomerular Filtration Rate 11 (60-); Glucose, Blood 114 mg/dL (70-99); Phosphorus, Blood 5.7 mg/dL (2.5-4.9); Sodium, Blood 135 mmol/L (136-145)
--- NOTE | 2022-01-22 06:52 | NUR ---
SHIFT SUMMARY PT AOX4 T/O SHIFT, WEAK AND HAS SOME DIFFICULTY POSITIONING SELF IN BED. OTHERWISE ABLE TO STAND UP TO BEDSIDE TO CHANGE AND ATTEMPT TO USE URINAL THIS AM. DID NOT URINATE THIS SHIFT. PT STATES THIS IS NOT UNUSUAL FOR HIM WITH DIALYSIS. PAM FROM ICU CALLED TO PT SIDE TO PLACE POWERGLIDE, POWERGLIDE DRAWS AND FLUSHES WELL. NO SIGNS OF INFILTRATION, PT TOLERATED SLOW INFUSION OF VANCO THROUGH POWERGLIDE.
[2022-01-22 08:09] LABS: Protein, Urine Quantitative 172.8 mg/dL (0.0-11.9)
[2022-01-22 15:30] LABS: Vancomycin, Random 20.5 ug/mL
--- NOTE | 2022-01-22 18:33 | NUR ---
SHIFT SUMMARY A&O X 4. VSS. NO DIALYSIS TODAY. POWER GLIDE IN R UPPER ARM INTACT & PATENT, FLUSHES WELL AND DRAWS WELL. PIV IN R AC FLUSHES WELL. PT HAS NOT URINATED TODAY. APPETITE IS GOOD. NO COMPLAINTS OF PAIN TODAY. SPIRITS SEEM GOOD. HAD A VISITOR TODAY THAT MADE HIM SMILE AND LAUGH. WILL LIKELY HAVE DIALYSIS TOMORROW.
--- NOTE | 2022-01-23 04:47 | NUR ---
SHIFT SUMMARY PT A&O X 3-4 WITH CONFUSION AT TIMES- PT URINATED X 1 ON SHIFT - PT STATED NORMAL WITH HIS DIALYSIS TO GO MORE THEN 24 HRS WITHOUT URINATING- PT HAD DIALYSIS 01/21- POWDERGLIDE FLUSHES WITH GOOD BLOOD RETURN RIGHT UPPER ARM-REMOVED R SL PER PT REQUEST FOR PAIN- PT WORE CPAP T/O NIGHT- PT TO HAVE MRI ON DAY OF DIALYSIS ,BED ALARM IN PLACE
[2022-01-23 06:15] LABS: Albumin, Blood 2.5 g/dL (3.4-5.0); Anion Gap 9 mmol/L (6-16); Blood Urea Nitrogen 46 mg/dL (8-24); Bun/Creatinine Ratio 6.1 (12.0-20.0); CO2, Blood 31 mmol/L (21-32); Calcium, Blood 8.9 mg/dL (8.5-10.1); Chloride, Blood 99 mmol/L (98-108); Creatinine, Blood 7.48 mg/dL (0.60-1.20); Glomerular Filtration Rate 7 (60-); Glucose, Blood 93 mg/dL (70-99); Magnesium, Blood 2.8 mg/dL (1.6-2.4); Phosphorus, Blood 5.1 mg/dL (2.5-4.9); Potassium, Blood 4.7 mmol/L (3.5-5.5); Sodium, Blood 139 mmol/L (136-145)
[2022-01-23 06:16] LABS: Hematocrit 24.1 % (37.0-53.0); Hemoglobin 7.4 g/dL (13.5-17.5); Mean Corpuscular HGB Conc 30.7 g/dL (31.5-36.5); Mean Corpuscular Volume 98 fL (80-100); Mean Platelet Volume 10.1 fL (9.1-12.4); Platelet Count 283 K/mm3 (150-400); RDW Coefficient Variation 15.1 % (11.7-14.2); Red Blood Cell Count 2.47 M/mm3 (4.30-5.90); White Blood Cell Count 4.24 K/mm3 (4.00-11.30)
[2022-01-23 12:07] LABS: ANTIMYELOPEROXIDASE (MPO) ABS <0.2 units (0.0-0.9); ANTIPROTEINASE 3 (PR-3) ABS <0.2 units (0.0-0.9); ATYPICAL PANCA <1:20 titer (Neg:<1:20); CYTOPLASMIC (C-ANCA) <1:20 titer (Neg:<1:20); PERINUCLEAR (P-ANCA) <1:20 titer (Neg:<1:20)
[2022-01-23 12:07] LABS: IMMUNOGLOBULIN A, QN, SERUM 271 mg/dL (61-437); IMMUNOGLOBULIN G, QN, SERUM 1175 mg/dL (603-1613); IMMUNOGLOBULIN M, QN, SERUM 73 mg/dL (15-143)
--- NOTE | 2022-01-23 16:32 | NUR ---
SHIFT SUMMARY PT GOT DIALYSIS DONE TODAY BUT THE MACHINE MALFUNCTIONED SO HE WILL GET DIALYSIS AGAIN TOMORROW, PER THE DIALYSIS CENTER. HE HAS BEEN SLEEPING MOST OF THE SHIFT, STATING HE DID NOT SLEEP MUCH LAST NIGHT. HE HAS BEEN COOPERATIVE AND PLEASANT, AOX4. HE IS TO GET A US OF HIS DIALYSIS FISTULA THIS SHIFT. HE HAS NO C/O P/N/V THIS SHIFT. WILL REPORT TO ONCOMING NURSE.
--- NOTE | 2022-01-24 04:21 | NUR ---
PT A&O X 4 WITH CONFUSION AT TIMES IN THE EVENING-REPORT THAT PT WILL HAVE DIALYSIS REPEATED TODAY 01/24/22-D/T NOT COMPLETING DIALYSIS- NEW IV R LFA-ANCEF GIVEN LATE D/T WAITING FOR US GUIDED IV- SPOKE WITH [facility] ABOUT CHANGING DAILY TIME- NO CHANGED IN TIME - HE DID ENCOURAGE FOR DOSE TO BE GIVEN SOON AFTER DIALYSIS - WILL COMMUNICATE IN REPORT TO DAYSHIFT RN TO CALL PHARMACY ABOUT CHANGING TIME BASED ON DIALYSIS- PT SLEPT T/O NIGHT WITH CPAP
[2022-01-24 05:11] LABS: Hematocrit 23.1 % (37.0-53.0); Hemoglobin 7.2 g/dL (13.5-17.5)
[2022-01-24 05:40] LABS: Albumin, Blood 2.4 g/dL (3.4-5.0); Anion Gap 10 mmol/L (6-16); Blood Urea Nitrogen 48 mg/dL (8-24); CO2, Blood 28 mmol/L (21-32); Chloride, Blood 98 mmol/L (98-108); Creatinine, Blood 7.96 mg/dL (0.60-1.20); Glomerular Filtration Rate 7 (60-); Glucose, Blood 100 mg/dL (70-99); Magnesium, Blood 2.2 mg/dL (1.6-2.4); Phosphorus, Blood 4.8 mg/dL (2.5-4.9); Potassium, Blood 4.7 mmol/L (3.5-5.5); Sodium, Blood 136 mmol/L (136-145)
--- NOTE | 2022-01-24 17:04 | NUR ---
SHIFT SUMMARY PT HAD DIALYSIS TODAY AND WHILE IT WAS IN PROGRESS, HE EXPERIENCED SOFT BLOOD PRESSURES. HE WAS GIVEN ALBUMIN WHILE IN DIALYSIS AND THE PROVIDER ADJUSTED SOME OF HIS MEDICATIONS, PLEASE SEE EMAR. HE HAS BEEN COOPERATIVE AND PLEASANT, SLEEPING OFF AND ON THROUGHOUT THE SHIFT. HE IS AOX4. WILL REPORT TO THE ONCOMING NURSE.
--- NOTE | 2022-01-25 03:58 | NUR ---
SHIFT SUMMARY PATIENT IS ALERT AND ORIENTED. PATIENT HAS HAD NO ACUTE EVENTS THIS SHIFT. VITAL SIGNS REVIEWED. PATIENT HAS BEEN PLEASENT AND COOPERATIVE WITH CARE THIS SHIFT. PATIENT HAS NOT COMPLAINED OF PAIN, NAUSEA, SOB OR VOMITTING THIS SHIFT. PATIENT HAS BEEN SLEEPING MOST OF SHIFT. BED IN LOCKED AND LOWEST POSITION. CALL LIGHT IN PLACE. WILL MONITOR UNTIL SHIFT CHANGE.
[2022-01-25 05:55] LABS: Hematocrit 22.4 % (37.0-53.0); Hemoglobin 6.8 g/dL (13.5-17.5)
[2022-01-25 06:39] LABS: Albumin, Blood 2.8 g/dL (3.4-5.0); Anion Gap 8 mmol/L (6-16); Blood Urea Nitrogen 36 mg/dL (8-24); Bun/Creatinine Ratio 5.8 (12.0-20.0); CO2, Blood 32 mmol/L (21-32); Calcium, Blood 8.8 mg/dL (8.5-10.1); Chloride, Blood 101 mmol/L (98-108); Creatinine, Blood 6.23 mg/dL (0.60-1.20); Glomerular Filtration Rate 9 (60-); Glucose, Blood 94 mg/dL (70-99); Magnesium, Blood 2.3 mg/dL (1.6-2.4); Phosphorus, Blood 4.2 mg/dL (2.5-4.9); Potassium, Blood 4.4 mmol/L (3.5-5.5); Sodium, Blood 141 mmol/L (136-145)
[2022-01-25 10:11] LABS: M-SPIKE, % Not Observed % (Not Observed)
[2022-01-25 12:49] LABS: Hematocrit 27.9 % (37.0-53.0); Hemoglobin 8.6 g/dL (13.5-17.5)
--- NOTE | 2022-01-25 20:10 | NUR ---
SHIFT SUMMARY- PT ALERT AND ORIENTED MINIMAL ASSISTANCE NEEDED FOR SITTING AT THE EOB FOR MEALS. PT VOIDS INFREQUENTLY. PT HAD DIALYSIS WITH A BLOOD TRANSFUSION THIS MORNING. PT DAUGHTER CALLED LOOKING FOR AN UPDATE CALLED DR MOSS AFTER SPEAKING WITH THE PT DAUGHTER, REQUESTED THE DOCTOR CALL THE PT DAUGHTER TO UPDATE HER ON THE PLAN FOR THE PT MOVING FORWARD, PER HER REQUEST. THE PT VSS POST DIALYSIS. PT IN BED, CALL LIGHT IN REACH NO S&S OF DISTRESS NOTED AT THE TIME OF BEDSIDE REPORT. L ARM FISTULA HAS BRUIT AND THRILL ON ASSESSMENT.
[2022-01-25 23:36] LABS: Hematocrit 25.7 % (37.0-53.0); Hemoglobin 8.1 g/dL (13.5-17.5)
--- NOTE | 2022-01-26 04:09 | NUR ---
SHIFT SUMMARY: PATIENT A&O X4, DENIES CHEST PAIN/N/V/D, ENDORSES CHRONIC BACK PAIN RELIEVED WITH MEDICATION. HAS NAIL THAT BROKE TO QUICK THAT IS BOTHERING HIM. NO ADVERSE EVENTS THIS SHIFT. USES CALL LIGHT APPROPRIATELY. BED LOW WITH CALL LIGHT IN REACH. WILL CONTINUE TO MONITOR UNTIL REPORT TO DAY RN.
[2022-01-26 06:21] LABS: Hematocrit 25.9 % (37.0-53.0); Hemoglobin 8.2 g/dL (13.5-17.5); Mean Corpuscular HGB 30.6 pg (26.0-34.0); Mean Corpuscular HGB Conc 31.7 g/dL (31.5-36.5); Mean Corpuscular Volume 97 fL (80-100); Platelet Count 261 K/mm3 (150-400); RDW Coefficient Variation 14.9 % (11.7-14.2); RDW Standard Deviation 52.7 fL (35.1-46.3); Red Blood Cell Count 2.68 M/mm3 (4.30-5.90); White Blood Cell Count 4.74 K/mm3 (4.00-11.30)
[2022-01-26 06:46] LABS: Albumin, Blood 2.9 g/dL (3.4-5.0); Albumin/Globulin Ratio 0.6 (0.8-1.8); Bilirubin, Total 0.4 mg/dL (0.1-1.0); Bun/Creatinine Ratio 6.1 (12.0-20.0); Calcium, Blood 9.2 mg/dL (8.5-10.1); Creatinine, Blood 5.59 mg/dL (0.60-1.20); Globulin, Blood 4.6 g/dL (2.2-4.0); Magnesium, Blood 2.1 mg/dL (1.6-2.4); Phosphorus, Blood 3.7 mg/dL (2.5-4.9); Potassium, Blood 4.2 mmol/L (3.5-5.5); Total Protein, Blood 7.5 g/dL (6.4-8.2)
--- NOTE | 2022-01-26 14:48 | NUR ---
SHIFT SUMMARY PT SLEEPING, RESTING QUIETLY ON CPAP. WOKE EASILY FOR CARE, BUT WENT BACK TO SLEEP. DR VINCENT HERE TO SEE PT AND DISCUSS PLAN OF CARE. PT WOKE AND TOOK CPAP OFF. PT READY FOR D/C AND WANTING TO GO HOME WITH H/H. PER PT, HE HAS 2 GRANDSONS THAT LIVE WITH HIM AND HELP WITH CARE AT HOME. NO DIALYSIS TODAY. REQUESTED PAIN MEDICATION FOR BACK PAIN; MEDICATED PER EMAR. DENIED FURTHER NEEDS. CALL LT IN REACH.
[2022-01-27 05:49] LABS: Hematocrit 24.7 % (37.0-53.0); Hemoglobin 7.9 g/dL (13.5-17.5)
[2022-01-27 06:15] LABS: Albumin, Blood 2.7 g/dL (3.4-5.0); Anion Gap 8 mmol/L (6-16); Blood Urea Nitrogen 46 mg/dL (8-24); Bun/Creatinine Ratio 6.5 (12.0-20.0); CO2, Blood 31 mmol/L (21-32); Calcium, Blood 8.7 mg/dL (8.5-10.1); Chloride, Blood 100 mmol/L (98-108); Creatinine, Blood 7.11 mg/dL (0.60-1.20); Glomerular Filtration Rate 7 (60-); Glucose, Blood 89 mg/dL (70-99); Magnesium, Blood 2.2 mg/dL (1.6-2.4); Phosphorus, Blood 4.4 mg/dL (2.5-4.9); Potassium, Blood 4.3 mmol/L (3.5-5.5); Sodium, Blood 139 mmol/L (136-145)
[2022-01-27 06:49] LABS: Hemoglobin 7.9 g/dL (13.5-17.5); Mean Corpuscular HGB 30.9 pg (26.0-34.0); Mean Corpuscular HGB Conc 31.6 g/dL (31.5-36.5); Mean Corpuscular Volume 98 fL (80-100); Mean Platelet Volume 10.4 fL (9.1-12.4); Platelet Count 250 K/mm3 (150-400); RDW Coefficient Variation 14.6 % (11.7-14.2); RDW Standard Deviation 52.7 fL (35.1-46.3); Red Blood Cell Count 2.56 M/mm3 (4.30-5.90); White Blood Cell Count 3.85 K/mm3 (4.00-11.30)
[2022-01-27 06:56] LABS: Bun/Creatinine Ratio 6.1 (12.0-20.0); Creatinine, Blood 7.5 mg/dL (0.60-1.20); Potassium, Blood 4.3 mmol/L (3.5-5.5)
[2022-01-27] MEDS ORDERED: Lisinopril2.5 MG PO (14:10)
[2022-01-27] MEDS ORDERED: CEFTRIAXON1 GM/50 M1 IV (14:11)
[2022-01-27] MEDS ORDERED: CEFAZOLIN2 GM/50 M3 IV (15:28)
--- NOTE | 2022-01-27 16:12 | NUR ---
PT RESTING QUIETLY WITH CPAP ON. WOKE EASILY FOR CARE. IMAGING HERE EARLY TO TAKE PT DOWN FOR CTA OF ABD. PT THEN RETURNED FOR BREAKFAST AND THEN DOWN TO DIALYSIS. PT TO D/C AFTER DIALYSIS. D/C ORDERS PLACED. [facility] REQUEST. PT TO COMPLETE IV ABX AT OUTPT DIALSIS M,W,F. IV ABX DOSE ADJUSTED PER DR VINCENT FOR D/C. ORDERS FAXED TO DIALYSIS BY [facility]. D/C INSTRUCTIONS REVIEWED WITH PT AND FAMILY; VERBALIZED UNDERSTANDING. PT ASSISTED OUT TO FAMILY CAR VIA W/C AND THERMAL MOLDER.
== END 2022-01-27 15:40 | disposition home health service (06) | DRG 871 ==
LOC: ER 05:02 → MEDS 05:03 → ERHOLD 05:03 → MEDS 05:03
PROVIDERS: Family Medicine; Internal Medicine Nephrology; Nurse Practitioner Acute Care; Student in an Organized Health Care Education/Training Program; ADMIT Internal Medicine
PROC: 3E03329 Introduction of Other Anti-infective into Peripheral Vein, Percutaneous Approach (ICD-10-PCS; 2022-01-20)
PROC: 5A09357 Assistance with Respiratory Ventilation, Less than 24 Consecutive Hours, Continuous Positive Airway Pressure (ICD-10-PCS; 2022-01-21)
PROC: 5A1D70Z Performance of Urinary Filtration, Intermittent, Less than 6 Hours Per Day (ICD-10-PCS; 2022-01-22)
PROC: 30233N1 Transfusion of Nonautologous Red Blood Cells into Peripheral Vein, Percutaneous Approach (ICD-10-PCS; principal; 2022-01-25)
DX: A41.01 Sepsis due to Methicillin susceptible Staphylococcus aureus (principal); N18.6 End stage renal disease; I12.0 Hypertensive chronic kidney disease with stage 5 chronic kidney disease or end stage renal disease; E87.1 Hypo-osmolality and hyponatremia; F11.20 Opioid dependence, uncomplicated; N25.81 Secondary hyperparathyroidism of renal origin; I77.6 Arteritis, unspecified; E11.22 Type 2 diabetes mellitus with diabetic chronic kidney disease; D63.1 Anemia in chronic kidney disease; N40.0 Benign prostatic hyperplasia without lower urinary tract symptoms; M54.50 Low back pain, unspecified; G89.29 Other chronic pain; E78.5 Hyperlipidemia, unspecified; E03.9 Hypothyroidism, unspecified; G47.33 Obstructive sleep apnea (adult) (pediatric); E11.42 Type 2 diabetes mellitus with diabetic polyneuropathy; E87.5 Hyperkalemia; E66.01 Morbid (severe) obesity due to excess calories; E83.41 Hypermagnesemia; E87.70 Fluid overload, unspecified; I48.0 Paroxysmal atrial fibrillation; I95.1 Orthostatic hypotension; K21.9 Gastro-esophageal reflux disease without esophagitis; Z79.899 Other long term (current) drug therapy; Z79.51 Long term (current) use of inhaled steroids; Z91.048 Other nonmedicinal substance allergy status; Z87.19 Personal history of other diseases of the digestive system; Z99.2 Dependence on renal dialysis; Z87.891 Personal history of nicotine dependence; Z68.39 Body mass index [BMI] 39.0-39.9, adult; Z79.82 Long term (current) use of aspirin; Z95.820 Peripheral vascular angioplasty status with implants and grafts
CPT/HCPCS: 36415; 36416; 36430; 74174; 74176; 80048; 80053; 80069; 80202; 82947; 83516; 83520; 83605; 83690; 83735; 84100; 84156; 84166; 85014; 85018; 85025; 85027; 85651; 86037; 86038; 86140; 86160; 86225; 86235; 86334; 86335; 86850; 86900; 86901; 86923; 87040; 87077; 87147; 87186; 93308; 93321; 93990; 94660; 94762; 96372; 96374; 97110; 97116; 97162; 99285-25; A9270; C1751; G0378; J0690; J0696; J1644; J3010; J3370; J7050; J7512; P9016; P9047; Q9967

== ENCOUNTER 2022-07-04 11:22 | Inpatient (IN) | payer OTHER ==
[~2022-07-04] VITALS: Ht 177.8 cm; Wt 136.7 kg
[~2022-07-04 11:22] MED LIST changes: +CALC.25 PO; +CALCIUM ACETAT667 MG PO; +CEFAZOLIN2 GM/50 M3 IV; +CEFTRIAXON1 GM/50 M1 IV; +CETI5 PO; +CINA30 PO; +IRON SUCROSE IV; +Lisinopril2.5 MG PO; +MIDODRINE HCL10 M1 PO; -Percocet 5-3251 EACH PO; +[UNRECOGNIZED DRUG - OTHER] IV
[2022-07-04 14:11] LABS: BASOPHILS ABSOLUTE AUTO 0.01 K/mm3 (0.00-0.23); BASOPHILS PERCENT AUTO 0 % (0-2); EOSINOPHILS ABSOLUTE AUTO 0.03 K/mm3 (0.00-0.68); EOSINOPHILS PERCENT AUTO 1 % (0-6); Hematocrit 21.9 % (37.0-53.0); IMMATURE GRAN ABSOLUTE AUTO 0.03 K/mm3 (0.00-0.10); IMMATURE GRAN PERCENT AUTO 1 % (0-1); LYMPHOCYTES ABSOLUTE AUTO 0.75 K/mm3 (0.84-5.20); LYMPHOCYTES PERCENT AUTO 11 % (21-46); MONOCYTES ABSOLUTE AUTO 0.59 K/mm3 (0.16-1.47); MONOCYTES PERCENT AUTO 9 % (4-13); Mean Corpuscular HGB 31.8 pg (26.0-34.0); Mean Corpuscular Volume 100 fL (80-100); Mean Platelet Volume 9.4 fL (9.1-12.4); NEUTROPHILS ABSOLUTE AUTO 5.22 K/mm3 (1.96-9.15); NEUTROPHILS PERCENT AUTO 79 % (41-73); Platelet Count 237 K/mm3 (150-400); RDW Coefficient Variation 13.9 % (11.7-14.2); RDW Standard Deviation 50.3 fL (35.1-46.3); White Blood Cell Count 6.63 K/mm3 (4.00-11.30)
[2022-07-04 14:43] LABS: CPK Creatine Kinase 32 U/L (39-308); Magnesium, Blood 2.8 mg/dL (1.6-2.4)
[2022-07-04 14:56] LABS: Alanine Aminotransfer (ALT/SGP 22 U/L (12-78); Albumin, Blood 2.6 g/dL (3.4-5.0); Albumin/Globulin Ratio 0.6 (0.8-1.8); Alk Phos 70 U/L (50-136); Anion Gap 1 mmol/L (6-16); Aspartate Aminotrans (AST/SGOT 11 U/L (12-37); Bilirubin, Total 0.3 mg/dL (0.1-1.0); Blood Urea Nitrogen 44 mg/dL (8-24); Bun/Creatinine Ratio 6.7 (12.0-20.0); CO2, Blood 36 mmol/L (21-32); Calcium, Blood 9.1 mg/dL (8.5-10.1); Chloride, Blood 94 mmol/L (98-108); Creatine Kinase MB <1.0 ng/mL (0.0-3.6); Creatinine, Blood 6.52 mg/dL (0.60-1.20); Globulin, Blood 4.7 g/dL (2.2-4.0); Glomerular Filtration Rate 8 (60-); Glucose, Blood 123 mg/dL (70-99); Sodium, Blood 131 mmol/L (136-145); Total Protein, Blood 7.3 g/dL (6.4-8.2)
[2022-07-04 14:57] LABS: Creatine Kinase MB Index Unable to Calculate (0.0-4.0)
[2022-07-04 19:33] VITALS: BP 178/76
[2022-07-04 21:44] VITALS: BP 178/97
[2022-07-04 22:28] LABS: BASOPHILS ABSOLUTE AUTO 0.01 K/mm3 (0.00-0.23); BASOPHILS PERCENT AUTO 0 % (0-2); EOSINOPHILS ABSOLUTE AUTO 0.09 K/mm3 (0.00-0.68); EOSINOPHILS PERCENT AUTO 1 % (0-6); Hematocrit 23.5 % (37.0-53.0); Hemoglobin 7.3 g/dL (13.5-17.5); IMMATURE GRAN ABSOLUTE AUTO 0.03 K/mm3 (0.00-0.10); IMMATURE GRAN PERCENT AUTO 1 % (0-1); LYMPHOCYTES ABSOLUTE AUTO 0.67 K/mm3 (0.84-5.20); LYMPHOCYTES PERCENT AUTO 10 % (21-46); MONOCYTES ABSOLUTE AUTO 0.52 K/mm3 (0.16-1.47); MONOCYTES PERCENT AUTO 8 % (4-13); Mean Corpuscular HGB 31.5 pg (26.0-34.0); Mean Corpuscular HGB Conc 31.1 g/dL (31.5-36.5); Mean Corpuscular Volume 101 fL (80-100); Mean Platelet Volume 8.9 fL (9.1-12.4); NEUTROPHILS ABSOLUTE AUTO 5.11 K/mm3 (1.96-9.15); NEUTROPHILS PERCENT AUTO 79 % (41-73); Platelet Count 248 K/mm3 (150-400); RDW Coefficient Variation 14.1 % (11.7-14.2); RDW Standard Deviation 52.5 fL (35.1-46.3); Red Blood Cell Count 2.32 M/mm3 (4.30-5.90); White Blood Cell Count 6.43 K/mm3 (4.00-11.30)
--- NOTE | 2022-07-04 22:37 | NUR ---
RETURN PT HAS RETURNED FROM STAT CT
--- NOTE | 2022-07-04 23:04 | NUR ---
ABDOMEN UPDATE I ENTERED THE PATIENTS ROOM TO ROUND AT 2200, THE PATIENT STARTED COMPLAINING OF INCREASED/SEVERE ABD PAIN. PT NOTED TO BE ROLLING AROUND IN BED, TRYING TO GET OOB TO "RELIEVE THE PAIN", AND YELLING OUT. CHARGE NURSE NOTIFIED AND A FOCUSED ASSESSMENT COMPLETE. BOWEL TONES NOTED TO BE HYPOACTIVE, PAIN NOTED IN RLQ AND EXTENDING TO THE LLQ, PAIN INCREASED WITH PALPATION. VSS, PT NOTED TO BE HYPERTENSIVE PER TREND. HOSPITALIST DIANE ERWIN CALLED AND UPDATED ABOUT THE SITUATION. OBTAINED ORDER FOR STAT LABS, STAT CT W/O CONTRAST, AND A OTD OF FENT 25-50 MIKES FOR THE TRANSPROT. SEE PREVIOUS NOTE FOR WHEN PT RETURNED FROM CT. AWAITING IMAGING RESULTS AND PLAN TO UPDATE HOSPITALIST WITH FURTHER CONCERNS.
[2022-07-05] VITALS (19 sets, daily range): BP systolic 114–197; BP diastolic 62–113
--- NOTE | 2022-07-05 03:25 | NUR ---
TELE TELE READS SINUS 80'S
--- NOTE | 2022-07-05 04:13 | NUR ---
SHIFT SUMMARY VSS, PT REMAINS HYPERTENSIVE. PT REMAINS ASYMPTOMATIC. TELE IN PLACE, SINUS 80-90'S. CONT PULSE OX IN PLACE FOR CPAP. CIRCULATION AND SENSATION REMAINS INTACT IN RLE. FRANSISCO WRAP SPLINT REMAINS IN PLACE. PT MEDICATED FOR PAIN WITH FENT PER EMAR. SEE PREVIOUS NOTE FOR UPDATE ON ABD PAIN AND IMAGING. PT HAS BEEN SLEEPING SINCE RETURNING TO THE FLOOR FROM IMAGING. PT HAS VOIDED ONCE, 300 ML'S. NO C/O N/V. NO FURTHER ACUTE EVENTS. PLAN FOR PT TO HAVE ORTHO, NEOHROLOGY, AND PALLIATIVE CONSULTS. THE PATIENT IS CURRENTLY SLEEPING, IN NO DISTRESS, CALL LIGHT IN REACH
[2022-07-05 04:52] LABS: BASOPHILS ABSOLUTE AUTO 0.01 K/mm3 (0.00-0.23); BASOPHILS PERCENT AUTO 0 % (0-2); EOSINOPHILS ABSOLUTE AUTO 0.05 K/mm3 (0.00-0.68); EOSINOPHILS PERCENT AUTO 1 % (0-6); Hematocrit 22.4 % (37.0-53.0); Hemoglobin 6.9 g/dL (13.5-17.5); IMMATURE GRAN ABSOLUTE AUTO 0.04 K/mm3 (0.00-0.10); IMMATURE GRAN PERCENT AUTO 1 % (0-1); LYMPHOCYTES ABSOLUTE AUTO 0.51 K/mm3 (0.84-5.20); LYMPHOCYTES PERCENT AUTO 9 % (21-46); MONOCYTES ABSOLUTE AUTO 0.48 K/mm3 (0.16-1.47); MONOCYTES PERCENT AUTO 8 % (4-13); Mean Corpuscular HGB 30.9 pg (26.0-34.0); Mean Corpuscular HGB Conc 30.8 g/dL (31.5-36.5); Mean Corpuscular Volume 100 fL (80-100); Mean Platelet Volume 9.6 fL (9.1-12.4); NEUTROPHILS ABSOLUTE AUTO 4.87 K/mm3 (1.96-9.15); NEUTROPHILS PERCENT AUTO 82 % (41-73); Platelet Count 255 K/mm3 (150-400); RDW Coefficient Variation 13.9 % (11.7-14.2); Red Blood Cell Count 2.23 M/mm3 (4.30-5.90); White Blood Cell Count 5.96 K/mm3 (4.00-11.30)
[2022-07-05 05:14] LABS: Magnesium, Blood 2.4 mg/dL (1.6-2.4)
[2022-07-05 06:08] LABS: Albumin, Blood 2.5 g/dL (3.4-5.0); Anion Gap 5 mmol/L (6-16); Blood Urea Nitrogen 55 mg/dL (8-24); Bun/Creatinine Ratio 7.3 (12.0-20.0); CO2, Blood 31 mmol/L (21-32); Calcium, Blood 9.1 mg/dL (8.5-10.1); Chloride, Blood 97 mmol/L (98-108); Creatinine, Blood 7.55 mg/dL (0.60-1.20); Glomerular Filtration Rate 7 (60-); Glucose, Blood 114 mg/dL (70-99); Phosphorus, Blood 4.1 mg/dL (2.5-4.9); Sodium, Blood 133 mmol/L (136-145)
--- NOTE | 2022-07-05 09:43 | NUR ---
PATIENT JUST WENT TO DIALYSIS AT THIS TIME.
[2022-07-05] MEDS ORDERED: Percocet 5-3251 EACH PO ×3 (09:50→12:05)
[2022-07-05] MEDS ORDERED: Acetaminophen650 M1 PO (11:47)
[2022-07-05] MEDS ORDERED: ALBU90OI INH (11:48)
[2022-07-05] MEDS ORDERED: ALLOPURINOL100 MG PO (11:48)
[2022-07-05] MEDS ORDERED: BUME2 PO (11:50)
[2022-07-05] MEDS ORDERED: ATOR80 PO (11:50)
[2022-07-05] MEDS ORDERED: Calcium Acetat667 MG PO (11:51)
[2022-07-05] MEDS ORDERED: CETI5 PO (11:55)
[2022-07-05] MEDS ORDERED: CLOP75 PO (11:55)
[2022-07-05] MEDS ORDERED: CYCL10 PO (11:56)
[2022-07-05] MEDS ORDERED: DICLOFENAC SOD100 GM TOP (11:57)
[2022-07-05] MEDS ORDERED: DOCU100 PO (11:58)
[2022-07-05] MEDS ORDERED: GABA300 PO (11:59)
[2022-07-05] MEDS ORDERED: GABA100 PO (12:00)
[2022-07-05] MEDS ORDERED: EUTHYROX88 MCG PO (12:01)
[2022-07-05] MEDS ORDERED: METSALMENC TOP (12:02)
[2022-07-05] MEDS ORDERED: MIDO5 PO (12:04)
[2022-07-05] MEDS ORDERED: PANT40 PO (12:06)
[2022-07-05] MEDS ORDERED: MIRALAX17 GM PO (12:06)
[2022-07-05] MEDS ORDERED: SODBIC650 PO (12:07)
[2022-07-05] MEDS ORDERED: SENN187 PO (12:07)
[2022-07-05] MEDS ORDERED: SERT50 PO (12:07)
[2022-07-05] MEDS ORDERED: NASAL SPRAY88 ML (12:09)
[2022-07-05] MEDS ORDERED: TERA5 PO (12:11)
--- NOTE | 2022-07-05 15:27 | NUR ---
SHIFT SUMMARY: NONSURGICAL RIGHT FIBULA FX PATIENT IS A&OX3, HAS A HARD TIME REMEMBERING CERTAIN DETAILS BUT KNOWS HIS NAME//WHERE HE IS. HIS RIGHT LEG HAS FRANSISCO WRAP AND GAUZE THAT ARE C/D/I. DENIES NUMBNESS AND TINGLING IN ALL EXTREMITIES. PAIN IS MANAGED WITH PO PERCOCET, FLEXIRIL, AND IV FENT. PATIENT DID HAVE DIALYSIS TODAY WITH 1 UNIT OF BLOOD GIVEN. HE IS VOIDING AND TOLERATING SMALL AMOUNTS OF PO INTAKE. PATIENT IS A 2 PERSON MAX ASSIST WITH FWW AND GAIT BELT. PATIENT IS SITTING UP IN THE RECLINER WITH CALL LIGHT IN REACH. CONTINUOUS BIOX IS IN PLACE WELL TELE.
[2022-07-06] VITALS (17 sets, daily range): BP systolic 95–168; BP diastolic 45–95
[2022-07-06 04:48] LABS: Hematocrit 25.8 % (37.0-53.0); Hemoglobin 8.1 g/dL (13.5-17.5)
[2022-07-06 05:10] LABS: Albumin, Blood 2.6 g/dL (3.4-5.0); Anion Gap 7 mmol/L (6-16); Blood Urea Nitrogen 48 mg/dL (8-24); Bun/Creatinine Ratio 6.9 (12.0-20.0); CO2, Blood 30 mmol/L (21-32); Calcium, Blood 9.2 mg/dL (8.5-10.1); Chloride, Blood 96 mmol/L (98-108); Creatinine, Blood 6.99 mg/dL (0.60-1.20); Ferritin, Serum 1880 ng/mL (26-388); Glomerular Filtration Rate 8 (60-); Glucose, Blood 131 mg/dL (70-99); Iron Serum 20 ug/dL (65-175); Magnesium, Blood 2.4 mg/dL (1.6-2.4); Percent Saturation 11.4 % (20.0-50.0); Phosphorus, Blood 5.3 mg/dL (2.5-4.9); Potassium, Blood 5.1 mmol/L (3.5-5.5); Sodium, Blood 133 mmol/L (136-145); Total Iron Binding Capacity 175 ug/dL (250-450)
--- NOTE | 2022-07-06 05:44 | NUR ---
SUMMARY PATIENT AOX3-4. NON-SURGICAL L ANKLE FX. LLE IN SPLINT WITH FRANSISCO WRAP. 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 PATIENT ON CPAP T/O NIGHT WITH 3L O2 BLEED IN. CONT. PULSE OX IN PLACE. TELE ON RUNNING A-FIB 90'S PER RIPPLER. TOLERATING SOME PO INTAKE, HOWEVER PATIENT C/O CONSTIPATION AND MEDICATED WITH SENNA AND COLACE PER EMAR. ENCOURAGED MOBILITY. PATIENT ABLE TO REPOSITION SELF WITH MINIMAL ASSIST. PLAN FOR PT/OT IN AM. MEDICATED FOR PAIN, TOLERATES WELL. FISTULA IN HIMA, ASSESSMENT WNL. IV SALINE LOCKED. AWAITING DISCHARGE PLANNING. CALL LIGHT IN REACH.
[2022-07-06 11:18] LABS: SARS-Cov-2 (COVID-19) PCR, MMC NEGATIVE (NEGATIVE)
--- NOTE | 2022-07-06 12:10 | NUR ---
TRANSFER PT BACK FROM DIALYSIS. A&OX4. BOOSTED IN BED. PT EATING LUNCH, CALL LIGHT WITHIN REACH.
--- NOTE | 2022-07-06 19:08 | NUR ---
SHIFT SUMMARY S/P R FIBULA FX, NON SURGICAL, A/O, PLAN IS FOR PATIENT TO GO TO REHAB AT DISCHARGE, WAS SCHEDULED TO DC TODAY BUT HAD A PERIOD OF TACHYCARDIA WHICH WAS CONTROLLED WITH LOPRESSOR (SEE EMAR), DC WAS CANCELLED TO KEEP HIM FOR OBSERVATION R/T TACHYCARDIA. TELE IN PLACE WITH NO OTHER EVENTS THIS SHIFT, CALL LIGHT IN REACH, WILL CTM AND REPORT TO NOC RN.
[2022-07-07] VITALS (15 sets, daily range): BP systolic 93–184; BP diastolic 58–107
[2022-07-07 04:51] LABS: BASOPHILS ABSOLUTE AUTO 0.01 K/mm3 (0.00-0.23); BASOPHILS PERCENT AUTO 0 % (0-2); EOSINOPHILS ABSOLUTE AUTO 0.03 K/mm3 (0.00-0.68); EOSINOPHILS PERCENT AUTO 1 % (0-6); Hematocrit 23.8 % (37.0-53.0); Hemoglobin 7.6 g/dL (13.5-17.5); IMMATURE GRAN ABSOLUTE AUTO 0.03 K/mm3 (0.00-0.10); IMMATURE GRAN PERCENT AUTO 1 % (0-1); LYMPHOCYTES ABSOLUTE AUTO 0.49 K/mm3 (0.84-5.20); LYMPHOCYTES PERCENT AUTO 8 % (21-46); MONOCYTES ABSOLUTE AUTO 0.75 K/mm3 (0.16-1.47); MONOCYTES PERCENT AUTO 12 % (4-13); Mean Corpuscular HGB 31.5 pg (26.0-34.0); Mean Corpuscular HGB Conc 31.9 g/dL (31.5-36.5); Mean Corpuscular Volume 99 fL (80-100); Mean Platelet Volume 9.4 fL (9.1-12.4); NEUTROPHILS ABSOLUTE AUTO 4.73 K/mm3 (1.96-9.15); NEUTROPHILS PERCENT AUTO 78 % (41-73); Platelet Count 214 K/mm3 (150-400); RDW Coefficient Variation 14.6 % (11.7-14.2); Red Blood Cell Count 2.41 M/mm3 (4.30-5.90); White Blood Cell Count 6.04 K/mm3 (4.00-11.30)
[2022-07-07 05:14] LABS: Albumin, Blood 2.3 g/dL (3.4-5.0); Anion Gap 8 mmol/L (6-16); Blood Urea Nitrogen 47 mg/dL (8-24); Bun/Creatinine Ratio 6.8 (12.0-20.0); CO2, Blood 33 mmol/L (21-32); Calcium, Blood 8.7 mg/dL (8.5-10.1); Chloride, Blood 96 mmol/L (98-108); Creatinine, Blood 6.92 mg/dL (0.60-1.20); Glomerular Filtration Rate 8 (60-); Glucose, Blood 126 mg/dL (70-99); Magnesium, Blood 2.4 mg/dL (1.6-2.4); Phosphorus, Blood 5.7 mg/dL (2.5-4.9); Potassium, Blood 4.3 mmol/L (3.5-5.5); Sodium, Blood 137 mmol/L (136-145)
--- NOTE | 2022-07-07 05:32 | NUR ---
SHIFT SUMMARY A/0 X4- BEDREST THROUGHOUT SHIFT. PAIN REPORTED THROUGHOUT SHIFT- MANAGED W/ PO PAIN MEDICATION. PT VSS. NO VOID THROUGHOUT SHIFT, DIALYSIS YESTERDAY. TOLERATING PO INTAKE. PLAN TO DC TO SNF TODAY.
--- NOTE | 2022-07-07 16:50 | NUR ---
TRANSFER TO [facility] REPORT CALLED TO [facility] STAFF, ALL QUESTIONS ANSWERED. PT ESCORTED TO FACILITY VIA TRANSPORTATION PROVIDED BY [facility].
[2022-07-08] MEDS ORDERED: Lopressor 25 mg25 MG PO (10:56)
== END 2022-07-07 16:30 | DRG 562 ==
LOC: ER 11:22 → SURS 11:23
PROVIDERS: Emergency Medicine; Internal Medicine Nephrology; Nurse Practitioner Acute Care; ADMIT Internal Medicine
PROC: 2W3QX1Z Immobilization of Right Lower Leg using Splint (ICD-10-PCS; principal; 2022-07-04)
PROC: 30233N1 Transfusion of Nonautologous Red Blood Cells into Peripheral Vein, Percutaneous Approach (ICD-10-PCS; 2022-07-05)
DX: S82.424A Nondisplaced transverse fracture of shaft of right fibula, initial encounter for closed fracture (principal); N18.6 End stage renal disease; N25.81 Secondary hyperparathyroidism of renal origin; I13.2 Hypertensive heart and chronic kidney disease with heart failure and with stage 5 chronic kidney disease, or end stage renal disease; E87.1 Hypo-osmolality and hyponatremia; F11.20 Opioid dependence, uncomplicated; I47.1 Supraventricular tachycardia; Z20.822 Contact with and (suspected) exposure to COVID-19; E87.5 Hyperkalemia; D63.1 Anemia in chronic kidney disease; E78.5 Hyperlipidemia, unspecified; E11.22 Type 2 diabetes mellitus with diabetic chronic kidney disease; K21.9 Gastro-esophageal reflux disease without esophagitis; N40.0 Benign prostatic hyperplasia without lower urinary tract symptoms; H53.8 Other visual disturbances; M10.9 Gout, unspecified; K76.0 Fatty (change of) liver, not elsewhere classified; R16.2 Hepatomegaly with splenomegaly, not elsewhere classified; I50.9 Heart failure, unspecified; E66.01 Morbid (severe) obesity due to excess calories; M54.50 Low back pain, unspecified; E11.40 Type 2 diabetes mellitus with diabetic neuropathy, unspecified; G47.33 Obstructive sleep apnea (adult) (pediatric); G89.29 Other chronic pain; Z68.37 Body mass index [BMI] 37.0-37.9, adult; Z99.81 Dependence on supplemental oxygen; Z99.2 Dependence on renal dialysis; Z79.890 Hormone replacement therapy; Z87.891 Personal history of nicotine dependence; Z87.01 Personal history of pneumonia (recurrent); Z98.890 Other specified postprocedural states; Z79.01 Long term (current) use of anticoagulants; Z79.899 Other long term (current) drug therapy; W18.39XA Other fall on same level, initial encounter; Y93.01 Activity, walking, marching and hiking
CPT/HCPCS: 29515; 36415; 36430; 71045; 73562-RT; 73590; 74176; 80053; 80069; 82550; 82553; 82728; 82947; 83540; 83550; 83605; 83735; 84132; 84443; 84484; 85014; 85018; 85025; 86850; 86900; 86901; 86923; 93005; 93010; 93971; 94660; 94762; 96372; 96374; 96376; 97110; 97116; 97162; 97166; 97530; 97535; 99285-25; A9270; G0378; J0881; J1644; J2916; J3010; P9016; P9047; U0004

== ENCOUNTER 2022-07-10 10:27 | Observation (INO) | payer OTHER ==
[~2022-07-10] VITALS: Ht 180.3 cm; Wt 126.9 kg
[~2022-07-10 10:27] MED LIST changes: +ALLOPURINOL100 MG PO; +Acetaminophen650 M1 PO; +CLOP75 PO; +DICLOFENAC SOD100 GM TOP; +GABA100 PO; +Lopressor 25 mg25 MG PO; +NASAL SPRAY88 ML; +Percocet 5-3251 EACH PO; +SERT50 PO; +TERA5 PO
[2022-07-10 14:51] LABS: BASOPHILS ABSOLUTE AUTO 0.01 K/mm3 (0.00-0.23); BASOPHILS PERCENT AUTO 0 % (0-2); EOSINOPHILS PERCENT AUTO 0 % (0-6); Hemoglobin 7.2 g/dL (13.5-17.5); IMMATURE GRAN ABSOLUTE AUTO 0.19 K/mm3 (0.00-0.10); IMMATURE GRAN PERCENT AUTO 2 % (0-1); LYMPHOCYTES ABSOLUTE AUTO 0.39 K/mm3 (0.84-5.20); LYMPHOCYTES PERCENT AUTO 4 % (21-46); MONOCYTES ABSOLUTE AUTO 0.68 K/mm3 (0.16-1.47); MONOCYTES PERCENT AUTO 6 % (4-13); Mean Corpuscular HGB 31.3 pg (26.0-34.0); Mean Corpuscular HGB Conc 31.3 g/dL (31.5-36.5); Mean Corpuscular Volume 100 fL (80-100); NEUTROPHILS ABSOLUTE AUTO 9.93 K/mm3 (1.96-9.15); NEUTROPHILS PERCENT AUTO 89 % (41-73); Platelet Count 290 K/mm3 (150-400); RDW Coefficient Variation 14.7 % (11.7-14.2); RDW Standard Deviation 53.3 fL (35.1-46.3)
[2022-07-10 15:35] LABS: Albumin, Blood 2.3 g/dL (3.4-5.0); Albumin/Globulin Ratio 0.4 (0.8-1.8); Bilirubin, Total 0.7 mg/dL (0.1-1.0); Bun/Creatinine Ratio 8.1 (12.0-20.0); Calcium, Blood 9.4 mg/dL (8.5-10.1); Creatinine, Blood 12.3 mg/dL (0.60-1.20); Globulin, Blood 5.5 g/dL (2.2-4.0); Potassium, Blood 4.7 mmol/L (3.5-5.5); Total Protein, Blood 7.8 g/dL (6.4-8.2)
[2022-07-10] MEDS ORDERED: LOKELMA10 GM PO (19:50)
[2022-07-10 20:02] VITALS: BP 97/52
--- NOTE | 2022-07-10 20:11 | NUR ---
ADMIT NOTE 76 YR OLD MALE ADMITTED TO FLOOR FROM THE ED WITH DX OF INTRACTABLE ABD PAIN. ALERT X 2-3. CONDOM CATH IN USE. O2 AT 4-5L/NC. (REPORTEDLY AT 3L AT HOME BASE). REPORTED DIALYSIS WAS STOPPED IN USE DUE TO PAIN, TRANSFERRED TO ED AND ED RN REPORTED THAT CT IS SCHEDULED BUT RADIOLOGY WANTED TO SEE IF MD WANTED I DONE AFTER DIALYSIS IN THE AM INSTEAD. CALL LIGHT IN REACH
[2022-07-10 20:27] VITALS: BP 130/76
[2022-07-11] MEDS ORDERED: NALOXONE HC1 MG/1 ML (00:01)
[2022-07-11] MEDS ORDERED: ASPI81CH PO (00:05)
[2022-07-11 00:47] VITALS: BP 106/66
--- NOTE | 2022-07-11 01:00 | NUR ---
CT DONE EARLIER OF ABD/HIP. REVIEWED RESULTS, VOICED WOULD PUT IN FOR TRANSFER TO ANOTHER HOSPITAL - SEE CT RESULT DOCUMENTATION. PT PAIN OF ABD/HIP REMAINS SEVERE, RECEIVING IV FENTANYL (SEE MAR FOR DETAILS). CALL LIGHT IN REACH. TAKING VS Q 2 HR. CALL LIGHT IN REACH.
--- NOTE | 2022-07-11 01:03 | NUR ---
PT PAIN CONTINUES, THIS NURSE CALLED DEVELOPMENT PLANNER RE POSSIBLE TRANSFER TO HIGHER LEVEL OF CARE. HOUSE RIVAS[ER VOICED NEED FOR ORDER TO DO SO. CALL PLACED TO MD SCOURING TRAIN OPERATOR CHIEF, CALL ANSWERED BY HEALTH OCCUPATIONS INSTRUCTOR, VOICED SHE WOULD ASK MD RE TRANSFER ORER HE WAS PUTTING IN A CENTRAL LINE IN A PT. WAITED FOR CALL BACK. DEVELOPMENT PLANNER CALLED BACK. REPORTED MD WAS TRYING TO TRANSFER PT TO ANOTHER HOSPITAL, AND SHE WOULD LET ME KNOW IF PT SHOULD BE TRANSFERRED IN HOUSE LATER.
--- NOTE | 2022-07-11 02:38 | NUR ---
DR NORMAN CALLED BACK. BED FOUND AT [facility] IN [place] FOR COBRA TRANSFER. PLACING ORDERD. CHARGE NURSE ADDRESSING PAPERWORK. PT NPO.
[2022-07-11 03:08] VITALS: BP 106/66
[2022-07-11 03:17] VITALS: BP 131/61
--- NOTE | 2022-07-11 03:17 | NUR ---
PT REQUESTED DAUGHTER "DAVID" TO BE NOTIFIED OF HIS TRANSFER TO [facility] IN [place]. DAVID WAS NOTIFIED PER REQUEST. UNIT CV ICU ROOM 210. WILL CALL FOR REPORT SOON INDICATED.
--- NOTE | 2022-07-11 03:58 | NUR ---
REPORT CALLED TO [facility] PLACED TO [facility], "JL DUENASON" NOTIFIED (NURSE OVER ROOM ICU 210). 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 ALSO GIVEN PH NUMBER OF DAVID, PT DAUGHTER. AWAITING TRANSPORT FOR COBRA TRANSFER. CHARGE NURSE FILLED OUT PAPERWORK.
--- NOTE | 2022-07-11 04:17 | NUR ---
AMBULANCE HERE, PT DISCHARGED PER COBRA ORDER TO [place] VIA AMBULANCE. O2 AT 4L/NC. VSS.
--- NOTE | 2022-07-11 04:18 | NUR ---
KETTLE ROOM HELPER SUMMARY WAS ADMITTED TO FLOOR FROM THE ED POST OUT PT DIALYSIS THAT WAS INTERRUPTED WITH ABD PAIN. 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 HAD BEEN RECEIVING IV FENTANYL FOR PAIN - SEE MAR FOR DETAILS. ALERT X 2-3. VERBAL RESPONSE ADEQUATE, BUT WAS UNABLE TO SIGN TRANSFER ORDERS, ETC DUE TO INABILITY TO HOLD PEN. VERBALIZED CONSENT FOR TRANSFER. REPORT CALLED TO [facility] TO "JL ARECHIGA" RN IN THE ICU, ROOM 210, WHERE PT IS TO BE RECEIVED. LEFT FOR [place] PER AMBULANCE/ AMBULANCE CREW.
== END 2022-07-11 04:15 | disposition short-term general hospital (02) ==
LOC: ER 10:27 → ERHOLD 10:28 → MEDS 10:28
PROVIDERS: Emergency Medicine; ADMIT Internal Medicine
DX: E87.70 Fluid overload, unspecified (principal); I12.0 Hypertensive chronic kidney disease with stage 5 chronic kidney disease or end stage renal disease; N18.6 End stage renal disease; E11.22 Type 2 diabetes mellitus with diabetic chronic kidney disease; D63.1 Anemia in chronic kidney disease; E03.9 Hypothyroidism, unspecified; E11.42 Type 2 diabetes mellitus with diabetic polyneuropathy; N40.0 Benign prostatic hyperplasia without lower urinary tract symptoms; E78.5 Hyperlipidemia, unspecified; G47.33 Obstructive sleep apnea (adult) (pediatric)
CPT/HCPCS: 36415; 74177; 80053; 82947; 85025; 96374-59; 96375; 96376; 99285-25; A9270; G0378; J3010; Q9967

== ENCOUNTER 2022-08-15 10:04 | Emergency (ER) | payer OTHER ==
[~2022-08-15] VITALS: Ht 175.3 cm; Wt 127.0 kg
[~2022-08-15 10:04] MED LIST changes: +ASPI81CH PO; +LOKELMA10 GM PO; +NALOXONE HC1 MG/1 ML
[2022-08-15 10:49] LABS: BASOPHILS ABSOLUTE AUTO 0.04 K/mm3 (0.00-0.23); BASOPHILS PERCENT AUTO 1 % (0-2); EOSINOPHILS ABSOLUTE AUTO 0.02 K/mm3 (0.00-0.68); EOSINOPHILS PERCENT AUTO 0 % (0-6); Hematocrit 28.5 % (37.0-53.0); Hemoglobin 8.5 g/dL (13.5-17.5); IMMATURE GRAN ABSOLUTE AUTO 0.05 K/mm3 (0.00-0.10); IMMATURE GRAN PERCENT AUTO 1 % (0-1); LYMPHOCYTES PERCENT AUTO 17 % (21-46); MONOCYTES ABSOLUTE AUTO 0.66 K/mm3 (0.16-1.47); MONOCYTES PERCENT AUTO 13 % (4-13); Mean Corpuscular HGB 30.4 pg (26.0-34.0); Mean Corpuscular HGB Conc 29.8 g/dL (31.5-36.5); Mean Corpuscular Volume 102 fL (80-100); Mean Platelet Volume 9.5 fL (9.1-12.4); NEUTROPHILS PERCENT AUTO 68 % (41-73); Platelet Count 385 K/mm3 (150-400); RDW Coefficient Variation 21.2 % (11.7-14.2); RDW Standard Deviation 76.2 fL (35.1-46.3); White Blood Cell Count 5.27 K/mm3 (4.00-11.30)
[2022-08-15] MEDS ORDERED: AMLO10 PO (10:58)
[2022-08-15] MEDS ORDERED: MELA3 PO (11:01)
[2022-08-15] MEDS ORDERED: OLAN2.5 PO (11:02)
[2022-08-15 11:26] LABS: Alanine Aminotransfer (ALT/SGP <6 U/L (12-78); Albumin, Blood 1.8 g/dL (3.4-5.0); Albumin/Globulin Ratio 0.3 (0.8-1.8); Alk Phos 173 U/L (50-136); Anion Gap 8 mmol/L (6-16); Aspartate Aminotrans (AST/SGOT 17 U/L (12-37); Bilirubin, Total 0.3 mg/dL (0.1-1.0); Blood Urea Nitrogen 34 mg/dL (8-24); Bun/Creatinine Ratio 6.7 (12.0-20.0); CO2, Blood 31 mmol/L (21-32); Calcium, Blood 9.1 mg/dL (8.5-10.1); Chloride, Blood 97 mmol/L (98-108); Creatinine, Blood 5.07 mg/dL (0.60-1.20); Globulin, Blood 5.5 g/dL (2.2-4.0); Glomerular Filtration Rate 11 (60-); Glucose, Blood 91 mg/dL (70-99); Potassium, Blood 5.2 mmol/L (3.5-5.5); Sodium, Blood 136 mmol/L (136-145); Total Protein, Blood 7.3 g/dL (6.4-8.2)
[2022-08-15 16:15] VITALS: BP 154/50
--- NOTE | 2022-08-16 11:33 | NUR ---
late entry pt seen yesterday in ER for severe pain. He is at rehab after interventions At [facility]. Pt pain meds have been decreased. He has a leg fracture that is very painful. Chronic back pain and burden of air hunger. He is on dialysis. Discussed with pt referal to uriah shrestha from the [facility] and [facility] team. Angelika discussed referal with his daughter. She thinks that is a good plan and states he has been talking about quiting dialysis. Also, asked her to bring his Bipap. referral sent.
== END 2022-08-15 16:29 | disposition home or self-care (01) ==
LOC: ER 10:04
PROVIDERS: Emergency Medicine
DX: R07.9 Chest pain, unspecified (principal); G89.29 Other chronic pain; I12.0 Hypertensive chronic kidney disease with stage 5 chronic kidney disease or end stage renal disease; E11.22 Type 2 diabetes mellitus with diabetic chronic kidney disease; N18.6 End stage renal disease; E03.9 Hypothyroidism, unspecified; K21.9 Gastro-esophageal reflux disease without esophagitis; J44.9 Chronic obstructive pulmonary disease, unspecified; Z99.2 Dependence on renal dialysis; Z79.899 Other long term (current) drug therapy; Z79.82 Long term (current) use of aspirin; Z79.890 Hormone replacement therapy; Z87.891 Personal history of nicotine dependence
CPT/HCPCS: 80053; 84484; 85025; 93005; 93010; 99285-25; A9270

== ENCOUNTER 2023-03-08 10:34 | Emergency (ER) | payer OTHER ==
[~2023-03-08] VITALS: Ht 177.8 cm; Wt 96.6 kg
[~2023-03-08 10:34] MED LIST changes: +MELA3 PO; +OLAN2.5 PO
[2023-03-08 11:35] LABS: BASOPHILS ABSOLUTE AUTO 0.01 K/mm3 (0.00-0.23); BASOPHILS PERCENT AUTO 0 % (0-2); EOSINOPHILS ABSOLUTE AUTO 0.16 K/mm3 (0.00-0.68); EOSINOPHILS PERCENT AUTO 2 % (0-6); Hematocrit 22.5 % (37.0-53.0); Hemoglobin 6.4 g/dL (13.5-17.5); IMMATURE GRAN ABSOLUTE AUTO 0.06 K/mm3 (0.00-0.10); IMMATURE GRAN PERCENT AUTO 1 % (0-1); LYMPHOCYTES ABSOLUTE AUTO 0.96 K/mm3 (0.84-5.20); LYMPHOCYTES PERCENT AUTO 10 % (21-46); MONOCYTES ABSOLUTE AUTO 0.67 K/mm3 (0.16-1.47); MONOCYTES PERCENT AUTO 7 % (4-13); Mean Corpuscular HGB 25.1 pg (26.0-34.0); Mean Corpuscular HGB Conc 28.4 g/dL (31.5-36.5); Mean Corpuscular Volume 88 fL (80-100); NEUTROPHILS PERCENT AUTO 80 % (41-73); Platelet Count 423 K/mm3 (150-400); RDW Coefficient Variation 18.2 % (11.7-14.2); RDW Standard Deviation 58.9 fL (35.1-46.3); Red Blood Cell Count 2.55 M/mm3 (4.30-5.90); White Blood Cell Count 9.36 K/mm3 (4.00-11.30)
[2023-03-08 11:54] LABS: Albumin/Globulin Ratio 0.3 (0.8-1.8); Bilirubin, Total 0.3 mg/dL (0.1-1.0); Bun/Creatinine Ratio 11.6 (12.0-20.0); Calcium, Blood 10.1 mg/dL (8.5-10.1); Creatinine, Blood 6.55 mg/dL (0.60-1.20); Globulin, Blood 5.8 g/dL (2.2-4.0); Potassium, Blood 4.5 mmol/L (3.5-5.5); Total Protein, Blood 7.8 g/dL (6.4-8.2)
[2023-03-08] MEDS ORDERED: Norco 5-325 Ta1 EACH PO (14:00)
[2023-03-08 16:10] VITALS: BP 102/62
== END 2023-03-08 11:41 | disposition home or self-care (01) ==
LOC: ER 10:34
PROVIDERS: Physician Assistant
DX: M25.561 Pain in right knee (principal); M25.562 Pain in left knee; M25.571 Pain in right ankle and joints of right foot; M25.572 Pain in left ankle and joints of left foot; R10.84 Generalized abdominal pain; E11.42 Type 2 diabetes mellitus with diabetic polyneuropathy; I12.0 Hypertensive chronic kidney disease with stage 5 chronic kidney disease or end stage renal disease; E11.22 Type 2 diabetes mellitus with diabetic chronic kidney disease; N18.6 End stage renal disease; Z99.2 Dependence on renal dialysis; E78.5 Hyperlipidemia, unspecified; E03.9 Hypothyroidism, unspecified; K21.9 Gastro-esophageal reflux disease without esophagitis; N40.0 Benign prostatic hyperplasia without lower urinary tract symptoms; G47.33 Obstructive sleep apnea (adult) (pediatric); M54.50 Low back pain, unspecified; G89.29 Other chronic pain; F11.20 Opioid dependence, uncomplicated; J44.9 Chronic obstructive pulmonary disease, unspecified; Z87.891 Personal history of nicotine dependence; Z79.02 Long term (current) use of antithrombotics/antiplatelets; Z79.82 Long term (current) use of aspirin; Z79.899 Other long term (current) drug therapy; Z88.8 Allergy status to other drugs, medicaments and biological substances; Z91.048 Other nonmedicinal substance allergy status; V49.50XA Passenger injured in collision with unspecified motor vehicles in traffic accident, initial encounter; Y92.410 Unspecified street and highway as the place of occurrence of the external cause
CPT/HCPCS: 73562-RT; 74177; 80053; 85025; 96374; 99285-25; J3010; Q9967

== ENCOUNTER 2023-03-29 15:31 | Emergency (ER) | payer OTHER ==
[~2023-03-29] VITALS: Ht 175.3 cm; Wt 102.1 kg
[~2023-03-29 15:31] MED LIST changes: +Norco 5-325 Ta1 EACH PO
[2023-03-29 16:58] LABS: Albumin, Blood 1.8 g/dL (3.4-5.0); Albumin/Globulin Ratio 0.3 (0.8-1.8); Bilirubin, Total 0.3 mg/dL (0.1-1.0); Bun/Creatinine Ratio 10.1 (12.0-20.0); Calcium, Blood 9.7 mg/dL (8.5-10.1); Creatinine, Blood 5.77 mg/dL (0.60-1.20); Globulin, Blood 5.7 g/dL (2.2-4.0); Potassium, Blood 3.8 mmol/L (3.5-5.5); Total Protein, Blood 7.5 g/dL (6.4-8.2)
[2023-03-29 17:01] LABS: BASOPHILS ABSOLUTE AUTO 0.03 K/mm3 (0.00-0.23); BASOPHILS PERCENT AUTO 1 % (0-2); EOSINOPHILS PERCENT AUTO 3 % (0-6); Hematocrit 28.6 % (37.0-53.0); Hemoglobin 8.7 g/dL (13.5-17.5); IMMATURE GRAN ABSOLUTE AUTO 0.05 K/mm3 (0.00-0.10); IMMATURE GRAN PERCENT AUTO 1 % (0-1); LYMPHOCYTES ABSOLUTE AUTO 1.15 K/mm3 (0.84-5.20); LYMPHOCYTES PERCENT AUTO 19 % (21-46); MONOCYTES ABSOLUTE AUTO 0.65 K/mm3 (0.16-1.47); MONOCYTES PERCENT AUTO 11 % (4-13); Mean Corpuscular HGB 26.9 pg (26.0-34.0); Mean Corpuscular HGB Conc 30.4 g/dL (31.5-36.5); Mean Corpuscular Volume 88 fL (80-100); NEUTROPHILS ABSOLUTE AUTO 3.85 K/mm3 (1.96-9.15); NEUTROPHILS PERCENT AUTO 65 % (41-73); RDW Coefficient Variation 16.7 % (11.7-14.2); RDW Standard Deviation 53.8 fL (35.1-46.3); Red Blood Cell Count 3.24 M/mm3 (4.30-5.90); White Blood Cell Count 5.93 K/mm3 (4.00-11.30)
[2023-03-29 17:40] LABS: Mean Platelet Volume 9.7 fL (9.1-12.4); Platelet Count 306 K/mm3 (150-400)
[2023-03-29 18:29] VITALS: BP 159/64
== END 2023-03-29 18:33 | disposition home or self-care (01) ==
LOC: ER 15:31
PROVIDERS: Student in an Organized Health Care Education/Training Program
DX: N18.6 End stage renal disease (principal); D63.1 Anemia in chronic kidney disease; I12.0 Hypertensive chronic kidney disease with stage 5 chronic kidney disease or end stage renal disease; E11.22 Type 2 diabetes mellitus with diabetic chronic kidney disease; E11.42 Type 2 diabetes mellitus with diabetic polyneuropathy; Z99.2 Dependence on renal dialysis; E78.5 Hyperlipidemia, unspecified; E03.9 Hypothyroidism, unspecified; E03.8 Other specified hypothyroidism; G47.33 Obstructive sleep apnea (adult) (pediatric); J44.9 Chronic obstructive pulmonary disease, unspecified; K21.9 Gastro-esophageal reflux disease without esophagitis; N40.0 Benign prostatic hyperplasia without lower urinary tract symptoms; M54.50 Low back pain, unspecified; G89.29 Other chronic pain; Z87.891 Personal history of nicotine dependence; Z79.82 Long term (current) use of aspirin; Z79.02 Long term (current) use of antithrombotics/antiplatelets; Z79.899 Other long term (current) drug therapy; Z91.048 Other nonmedicinal substance allergy status; Z88.8 Allergy status to other drugs, medicaments and biological substances
CPT/HCPCS: 80053; 85025; 86850; 86900; 86901; 93005; 93010

== ENCOUNTER 2023-04-03 12:28 | Emergency (ER) | payer MEDICARE, OTHER ==
[~2023-04-03] VITALS: Ht 175.3 cm; Wt 104.3 kg
[~2023-04-03 12:28] MED LIST changes: +ARTHRITIS PAIN150 GM TOP; +Acetaminophen325 M1 PO; +B-1100 M1 PO; +DOCUZEN 8.6-501 EACH PO; +LACT PO; +METO25 PO; +MULVITA PO; +NARCAN4 M1; +NEPHRO VITAMIN0.8 MG PO; +Promod946 ML PO; +SIME80CH PO; +SODIUM CHLORIDE
[2023-04-03 13:57] LABS: BASOPHILS ABSOLUTE AUTO 0.03 K/mm3 (0.00-0.23); BASOPHILS PERCENT AUTO 1 % (0-2); EOSINOPHILS ABSOLUTE AUTO 0.22 K/mm3 (0.00-0.68); EOSINOPHILS PERCENT AUTO 3 % (0-6); Hematocrit 25.2 % (37.0-53.0); Hemoglobin 7.5 g/dL (13.5-17.5); IMMATURE GRAN ABSOLUTE AUTO 0.03 K/mm3 (0.00-0.10); IMMATURE GRAN PERCENT AUTO 1 % (0-1); LYMPHOCYTES PERCENT AUTO 14 % (21-46); MONOCYTES ABSOLUTE AUTO 0.75 K/mm3 (0.16-1.47); MONOCYTES PERCENT AUTO 12 % (4-13); Mean Corpuscular HGB 27.5 pg (26.0-34.0); Mean Corpuscular HGB Conc 29.8 g/dL (31.5-36.5); Mean Corpuscular Volume 92 fL (80-100); Mean Platelet Volume 9.8 fL (9.1-12.4); NEUTROPHILS PERCENT AUTO 70 % (41-73); Platelet Count 309 K/mm3 (150-400); RDW Coefficient Variation 16.9 % (11.7-14.2); Red Blood Cell Count 2.73 M/mm3 (4.30-5.90); White Blood Cell Count 6.43 K/mm3 (4.00-11.30)
[2023-04-03 14:12] LABS: Albumin, Blood 1.7 g/dL (3.4-5.0); Albumin/Globulin Ratio 0.3 (0.8-1.8); Bilirubin, Total 0.2 mg/dL (0.1-1.0); Bun/Creatinine Ratio 14.5 (12.0-20.0); Calcium, Blood 9.7 mg/dL (8.5-10.1); Creatinine, Blood 6.53 mg/dL (0.60-1.20); Globulin, Blood 5.4 g/dL (2.2-4.0); Magnesium, Blood 2.2 mg/dL (1.6-2.4); Phosphorus, Blood 3.8 mg/dL (2.5-4.9); Potassium, Blood 5.2 mmol/L (3.5-5.5); Total Protein, Blood 7.1 g/dL (6.4-8.2)
[2023-04-03 18:44] VITALS: BP 162/79
== END 2023-04-03 20:00 ==
LOC: ER 12:28
PROVIDERS: Emergency Medicine
DX: I12.0 Hypertensive chronic kidney disease with stage 5 chronic kidney disease or end stage renal disease (principal); N18.6 End stage renal disease; D64.9 Anemia, unspecified; E11.22 Type 2 diabetes mellitus with diabetic chronic kidney disease; J44.9 Chronic obstructive pulmonary disease, unspecified; E11.42 Type 2 diabetes mellitus with diabetic polyneuropathy; E78.5 Hyperlipidemia, unspecified; K21.9 Gastro-esophageal reflux disease without esophagitis; G47.33 Obstructive sleep apnea (adult) (pediatric); Z99.2 Dependence on renal dialysis; Z91.048 Other nonmedicinal substance allergy status
CPT/HCPCS: 80053; 83735; 84100; 85025; 99285

== ENCOUNTER 2023-04-06 14:30 | Inpatient (IN) | payer OTHER, MEDICARE ==
[~2023-04-06] VITALS: Ht 180.3 cm; Wt 90.5 kg
[2023-04-06 15:55] LABS: BASOPHILS ABSOLUTE AUTO 0.02 K/mm3 (0.00-0.23); BASOPHILS PERCENT AUTO 0 % (0-2); EOSINOPHILS ABSOLUTE AUTO 0.19 K/mm3 (0.00-0.68); EOSINOPHILS PERCENT AUTO 3 % (0-6); Hematocrit 26.6 % (37.0-53.0); Hemoglobin 7.8 g/dL (13.5-17.5); IMMATURE GRAN ABSOLUTE AUTO 0.03 K/mm3 (0.00-0.10); IMMATURE GRAN PERCENT AUTO 1 % (0-1); LYMPHOCYTES ABSOLUTE AUTO 1.07 K/mm3 (0.84-5.20); LYMPHOCYTES PERCENT AUTO 16 % (21-46); MONOCYTES PERCENT AUTO 12 % (4-13); Mean Corpuscular HGB 26.8 pg (26.0-34.0); Mean Corpuscular HGB Conc 29.3 g/dL (31.5-36.5); Mean Corpuscular Volume 91 fL (80-100); Mean Platelet Volume 9.6 fL (9.1-12.4); NEUTROPHILS ABSOLUTE AUTO 4.54 K/mm3 (1.96-9.15); NEUTROPHILS PERCENT AUTO 68 % (41-73); Platelet Count 352 K/mm3 (150-400); RDW Coefficient Variation 16.7 % (11.7-14.2); RDW Standard Deviation 55.4 fL (35.1-46.3); Red Blood Cell Count 2.91 M/mm3 (4.30-5.90); White Blood Cell Count 6.65 K/mm3 (4.00-11.30)
[2023-04-06 16:01] LABS: PCO2 Venous 49.3 mmHg (38-42); pH Blood Venous 7.43 (7.34-7.37)
[2023-04-06 16:15] LABS: Albumin, Blood 1.8 g/dL (3.4-5.0); Albumin/Globulin Ratio 0.3 (0.8-1.8); Bilirubin, Total 0.3 mg/dL (0.1-1.0); Bun/Creatinine Ratio 14.2 (12.0-20.0); Calcium, Blood 9.3 mg/dL (8.5-10.1); Creatinine, Blood 6.07 mg/dL (0.60-1.20); Globulin, Blood 5.8 g/dL (2.2-4.0); Potassium, Blood 5.3 mmol/L (3.5-5.5); Total Protein, Blood 7.6 g/dL (6.4-8.2)
[2023-04-06 16:59] LABS: Influenza A, PCR NEGATIVE (NEGATIVE); Influenza B, PCR NEGATIVE (NEGATIVE); Resp Syncytial Virus, PCR NEGATIVE (NEGATIVE); SARS-Cov-2 (COVID-19) PCR, MMC NEGATIVE (NEGATIVE)
[2023-04-06] MEDS ORDERED: Naloxone HCl 1MG / ML 2ML SYR IV ONE (17:10)
[2023-04-06] MEDS ORDERED: Droperidol 5 mg/2 ml Vial IV ONE (17:40)
[2023-04-06 19:32] LABS: Ethanol (Alcohol), Blood, Med <3 mg/dL
[2023-04-06] MEDS ORDERED: Acetaminophen 325 MG TABLET PO PRN (19:35)
[2023-04-06] MEDS ORDERED: Naloxone HCl 0.4MG / ML 1ML Vial IV PRN (19:35)
[2023-04-06] MEDS ORDERED: FLU VACC QS2023-24(6MOS UP)/PF 60 MCG/0.5 ML SYRINGE IM SCH (19:40)
[2023-04-06] MEDS ORDERED: Lactated Ringer's 1,000 ML IV SCH (20:00)
[2023-04-06] MEDS ORDERED: Saline Nasal Spray 45 ML PRN (20:05)
[2023-04-06] MEDS ORDERED: Simethicone 80 MG Chew PO PRN (20:10)
[2023-04-06] MEDS ORDERED: Sennosides 8.6 MG Tab PO PRN (20:10)
[2023-04-06] MEDS ORDERED: Albuterol HFA200 ACT/6.7 GM INH INH PRN (20:20)
[2023-04-06] MEDS ORDERED: Loratadine 10 MG Tab PO SCH (20:25)
[2023-04-06 20:30] LABS: Base Excess Venous 7.3 mmol/L; Bicarbonate Venous 30.6 mmol/L (24.0-30.0); PCO2 Venous 40.8 mmHg (38-42); pH Blood Venous 7.49 (7.34-7.37)
[2023-04-06] MEDS ORDERED: Vitamin B Cmplx/Vit C/Folic Ac 1 Tab PO SCH (21:00)
[2023-04-06] MEDS ORDERED: Doxazosin Mesylate 2 MG Tab PO SCH (21:00)
[2023-04-06] MEDS ORDERED: Docusate Sodium 100 MG Cap PO SCH (21:00)
[2023-04-06] MEDS ORDERED: Protein Supplement 30 ML UD PO SCH (21:00)
[2023-04-06] MEDS ORDERED: Melatonin 3 MG Tab PO SCH (21:00)
[2023-04-06] MEDS ORDERED: Pantoprazole Sodium 40 MG Tab PO SCH (21:00)
[2023-04-06] MEDS ORDERED: DICLOFENAC 1% TOPICAL GEL TOP PRN (21:10)
[2023-04-07] VITALS (14 sets, daily range): BP systolic 106–182; BP diastolic 58–92
[2023-04-07 00:44] LABS: BASOPHILS ABSOLUTE AUTO 0.02 K/mm3 (0.00-0.23); BASOPHILS PERCENT AUTO 0 % (0-2); EOSINOPHILS ABSOLUTE AUTO 0.11 K/mm3 (0.00-0.68); EOSINOPHILS PERCENT AUTO 2 % (0-6); Hematocrit 24.5 % (37.0-53.0); Hemoglobin 7.3 g/dL (13.5-17.5); IMMATURE GRAN ABSOLUTE AUTO 0.02 K/mm3 (0.00-0.10); IMMATURE GRAN PERCENT AUTO 0 % (0-1); LYMPHOCYTES ABSOLUTE AUTO 0.69 K/mm3 (0.84-5.20); LYMPHOCYTES PERCENT AUTO 13 % (21-46); MONOCYTES ABSOLUTE AUTO 0.48 K/mm3 (0.16-1.47); MONOCYTES PERCENT AUTO 9 % (4-13); Mean Corpuscular HGB 27.1 pg (26.0-34.0); Mean Corpuscular HGB Conc 29.8 g/dL (31.5-36.5); Mean Corpuscular Volume 91 fL (80-100); Mean Platelet Volume 9.3 fL (9.1-12.4); NEUTROPHILS ABSOLUTE AUTO 4.22 K/mm3 (1.96-9.15); NEUTROPHILS PERCENT AUTO 76 % (41-73); Platelet Count 320 K/mm3 (150-400); RDW Coefficient Variation 16.7 % (11.7-14.2); RDW Standard Deviation 54.7 fL (35.1-46.3); Red Blood Cell Count 2.69 M/mm3 (4.30-5.90); White Blood Cell Count 5.54 K/mm3 (4.00-11.30)
[2023-04-07] MEDS ORDERED: NS 1,000 ML IV SCH (01:00)
[2023-04-07 01:02] LABS: Magnesium, Blood 2.3 mg/dL (1.6-2.4)
[2023-04-07 01:03] LABS: Albumin, Blood 1.8 g/dL (3.4-5.0); Albumin/Globulin Ratio 0.3 (0.8-1.8); Bilirubin, Total 0.4 mg/dL (0.1-1.0); Bun/Creatinine Ratio 14.5 (12.0-20.0); Calcium, Blood 9.4 mg/dL (8.5-10.1); Creatinine, Blood 6.64 mg/dL (0.60-1.20); Globulin, Blood 5.4 g/dL (2.2-4.0); Phosphorus, Blood 4.4 mg/dL (2.5-4.9); Potassium, Blood 5.8 mmol/L (3.5-5.5); Total Protein, Blood 7.2 g/dL (6.4-8.2)
--- NOTE | 2023-04-07 04:21 | NUR ---
PT ARRIVED TO THE MEDICAL FLOOR FROM THE ER VIA GURNEY. PT AT THAT TIME REPORTED THAT HE COULD NOT STAND AND WAS TRANSFERED TO THE BED VIA SLIDE SHEET. THE PT WAS ORIENTED TO THE ROOM LAYOUT AND CALL SYSTEM. CONSULT REQUEST WAS CALLED TO DR. STRINGER NEPHROLOGY. THE PT ANSWERED QUESTIONS APPROPRIATLY. O2 WAS APPLIED TO THE PT FOR BEDTIME, OTHERWISE, THE PTS O2 SAT'S WERE GREATER THAN 92% WITHOUT OXYGEN WHILE AWAKE. UA SAMPLE WAS NOT COLLECTED ORDERED, PT REPORTED THAT DUE TO HIS ESRD HED DID NOT PRODUCE ANY URINE. CALL LIGHT IN REACH, BED IN THE LOW POSITION, BED ALARM ON
[2023-04-07] MEDS ORDERED: Levothyroxine Sodium 0.088 MG Tab PO SCH (06:00)
[2023-04-07 06:50] LABS: Hematocrit 25.2 % (37.0-53.0); Hemoglobin 7.4 g/dL (13.5-17.5)
[2023-04-07 08:04] LABS: Albumin, Blood 1.7 g/dL (3.4-5.0); Anion Gap 5 mmol/L (6-16); Blood Urea Nitrogen 99 mg/dL (8-24); Bun/Creatinine Ratio 14.6 (12.0-20.0); CO2, Blood 32 mmol/L (21-32); Calcium, Blood 9.4 mg/dL (8.5-10.1); Chloride, Blood 92 mmol/L (98-108); Creatinine, Blood 6.78 mg/dL (0.60-1.20); Glomerular Filtration Rate 8 (60-); Glucose, Blood 78 mg/dL (70-99); Magnesium, Blood 2.3 mg/dL (1.6-2.4); Phosphorus, Blood 4.8 mg/dL (2.5-4.9); Potassium, Blood 5.4 mmol/L (3.5-5.5); Sodium, Blood 129 mmol/L (136-145)
[2023-04-07] MEDS ORDERED: Calcium Acetate 667 MG Gel Cap PO SCH (08:30)
[2023-04-07] MEDS ORDERED: Losartan Potassium 25 MG Tab PO SCH (09:00)
[2023-04-07] MEDS ORDERED: Clopidogrel Bisulfate 75 MG Tab PO SCH (09:00)
[2023-04-07] MEDS ORDERED: Atorvastatin 40 MG Tab PO SCH (09:00)
[2023-04-07] MEDS ORDERED: Gabapentin 100 MG Cap PO PRN (09:00)
[2023-04-07] MEDS ORDERED: Allopurinol 100 MG Tab PO SCH (09:00)
[2023-04-07] MEDS ORDERED: Multivitamins 1 Tab PO SCH (09:00)
[2023-04-07] MEDS ORDERED: Aspirin 81 MG Chew PO SCH (09:00)
[2023-04-07] MEDS ORDERED: OLANZapine 5 MG Tab PO SCH (09:00)
[2023-04-07] MEDS ORDERED: Heparin Sodium,Porcine 5,000 UNIT/0.5 ML SDV SC SCH (09:00)
[2023-04-07] MEDS ORDERED: Polyethylene Glycol 3350 17 gm PO SCH (09:00)
[2023-04-07] MEDS ORDERED: Bumetanide 1 MG Tab PO SCH (09:00)
[2023-04-07] MEDS ORDERED: AmLODIPine Besylate 5 MG Tab PO SCH (09:00)
[2023-04-07] MEDS ORDERED: Midodrine 5 MG Tab PO SCH (09:00)
[2023-04-07] MEDS ORDERED: Sertraline HCl 50 MG Tab PO SCH (09:00)
[2023-04-07] MEDS ORDERED: Metoprolol Tartrate 25 MG Tab PO SCH (09:00)
[2023-04-07] MEDS ORDERED: Sodium Zirconium Cyclosilicate 10 GM Packet PO SCH (09:00)
[2023-04-07] MEDS ORDERED: Darbepoetin Alfa In Albumn Sol 40 MCG/0.4 ML SC SCH (13:00)
--- NOTE | 2023-04-07 17:55 | NUR ---
SHIFT SUMMARY PT A&OX2-3, VSS, BEDREST, NPO, VOIDING, AND DENIED PAIN. PT CONT TO BE CONFUSED AND REQUIRE REORIENTATION TO HIS CURRENT SITUATION AND TIME/DATE. CALL LIGHT WITHIN REACH AND PT ABLE TO MAKE NEEDS KNOWN.
[2023-04-08] VITALS (14 sets, daily range): BP systolic 121–151; BP diastolic 42–96
--- NOTE | 2023-04-08 03:08 | NUR ---
BUSINESS RULES ANALYST SUMMARY VSS. VERBAL RESPONSE APPROPRIATE TO QUESTIONS ASKED. BEDREST, ABLE TO REPOSITION SELF NEEDED. UNABLE TO OBTAIN UA HE IS ON DIALYSIS, LEFT ARM FISTULA FOR ACCESS. AM RN REPORTED NPO FOR SWALOW STUDY, BUT PT TOLERATED HS MEDS WELL, NO NOTED DIFFICULTIES WITH TAKING MEDS. CHARGE NURSE NOTIFIED. ON CPAP AT NIGHT WITH CONT PULSE OX, SATS REMAIN IN THE 90'S. HAS BEEN RESTING QUIETLY WITH FEW INTERRUPTIONS. CALL LIGHT IN REACH. RAILS UP X 3 FOR SAFETY. WILL CONTINUE TO MONITOR
[2023-04-08] MEDS ORDERED: FentaNYL Citrate 50 MCG/ML 2 ML Injection IV PRN (03:40)
[2023-04-08 05:49] LABS: Base Excess Venous 5 mmol/L; Bicarbonate Venous 28.1 mmol/L (24.0-30.0); PCO2 Venous 50.3 mmHg (38-42); pH Blood Venous 7.39 (7.34-7.37)
[2023-04-08 05:49] LABS: Hematocrit 25.1 % (37.0-53.0); Hemoglobin 7.3 g/dL (13.5-17.5)
[2023-04-08 06:21] LABS: Albumin, Blood 1.9 g/dL (3.4-5.0); Anion Gap 8 mmol/L (6-16); Blood Urea Nitrogen 89 mg/dL (8-24); Bun/Creatinine Ratio 13.9 (12.0-20.0); CO2, Blood 30 mmol/L (21-32); Calcium, Blood 10.3 mg/dL (8.5-10.1); Chloride, Blood 93 mmol/L (98-108); Creatinine, Blood 6.42 mg/dL (0.60-1.20); Glomerular Filtration Rate 8 (60-); Glucose, Blood 71 mg/dL (70-99); Magnesium, Blood 2.3 mg/dL (1.6-2.4); Phosphorus, Blood 5.7 mg/dL (2.5-4.9); Potassium, Blood 5.5 mmol/L (3.5-5.5); Sodium, Blood 131 mmol/L (136-145)
[2023-04-08] MEDS ORDERED: Sodium Zirconium Cyclosilicate 10 GM Packet PO SCH (09:00)
--- NOTE | 2023-04-08 18:12 | NUR ---
SHIFT SUMMARY PT CONT TO BE A&OX2-3, CONFUSED, AND REQUIRE REORIENTATION. PT STARTED TO BECOME MORE CONFUSED TOWARDS END OF SHIFT TO WHERE HE WAS AND HIS CURRENT SITUATION. PT ATTEMPTED TO GET OUT OF BED AND CALLED OUT, BUT WAS UNSUCESSFUL AND REORIENTED TO THE CALL LIGHT, PLACE, AND CURRENT SITUATION. THIS NURSE CALLED EPIFANIO AND SPOKE W/ CAROLYN CORCORAN ABOUT PT'S BASELINE. PER OUR PHONE CONVERSATION, PT' BASELINE IS A&OX3 AND IS ABLE TO MAKE NEEDS KNOWN. THIS NURSE ADMINISTERED ORAL MEDICATIONS PER EMAR AND SIPS OF WATER. PT TOLERATED WELL WITH NO SWALLOWING DIFFICULTY. PT REPORTED HAVING A LESION ON THE INSIDE OF THE L SIDE OF LIP/CHEEK AREA, BUT DID NOT INTERFERE W/ HIS ABILITY TO SWALLOW. PLAN FOR ULTRASOUND ON FISTULA TOMORROW. CALL LIGHT WITHIN REACH AND BED ALARM ON.
[2023-04-09] MEDS ORDERED: OLANZapine 5 MG Tab PO PRN ×2 (01:35→01:40)
[2023-04-09 02:44] VITALS: BP 117/69
[2023-04-09 05:49] LABS: Hematocrit 26.4 % (37.0-53.0); Hemoglobin 7.8 g/dL (13.5-17.5)
[2023-04-09 06:26] LABS: Albumin, Blood 1.9 g/dL (3.4-5.0); Anion Gap 8 mmol/L (6-16); Blood Urea Nitrogen 79 mg/dL (8-24); Bun/Creatinine Ratio 13.2 (12.0-20.0); CO2, Blood 30 mmol/L (21-32); Calcium, Blood 10.4 mg/dL (8.5-10.1); Chloride, Blood 94 mmol/L (98-108); Creatinine, Blood 5.99 mg/dL (0.60-1.20); Glomerular Filtration Rate 9 (60-); Glucose, Blood 98 mg/dL (70-99); Magnesium, Blood 2.2 mg/dL (1.6-2.4); Phosphorus, Blood 5.2 mg/dL (2.5-4.9); Potassium, Blood 4.5 mmol/L (3.5-5.5); Sodium, Blood 132 mmol/L (136-145)
--- NOTE | 2023-04-09 06:47 | NUR ---
BREAD RACKER SUMMARY VSS. INTERMITTENT WORD SALAD AND SOME AGITATION NOTED. SOME ATTEMPTS TO REMOVE CPAP, ETC. AT TIMES DIFFICULT TO REDIRECT. NOTIFIED AND BrodyYPREXA ORDERED AND ADMINISTERED - SEE MAR FOR DETAILS. MED EFFECTIVE, HAS BEEN RSETING QUIETLY WITH FEW INTERRUPTIONS SINCE. CALL LIGHT IN REACH. RAILS UP X 3 FOR SAFETY. WILL CONTINUE TO MONITOR.
[2023-04-09 07:18] VITALS: BP 136/52
[2023-04-09 10:46] VITALS: BP 129/61
[2023-04-09 15:26] VITALS: BP 124/56
[2023-04-09 17:16] VITALS: BP 112/55
[2023-04-09] MEDS ORDERED: CINA30 PO (18:02)
[2023-04-09] MEDS ORDERED: OMEP20ER PO (18:20)
[2023-04-09] MEDS ORDERED: ACET325 PO (18:21)
[2023-04-09] MEDS ORDERED: OXYC10TA19 PO (18:27)
[2023-04-09] MEDS ORDERED: FOLIC ACID0.4 MG PO (18:31)
[2023-04-09 19:39] VITALS: BP 137/61
--- NOTE | 2023-04-09 19:47 | NUR ---
SHIFT SUMMARY PATIENT SLEEPING AT BEGINNING OF SHIFT. HE PASSED NURSE BEDSIDE SWALLOW TEST. MEDICATIONS GIVEN WHOLE WITH WATER, PATIENT TOLERATING RENAL DIET THIS AFTERNOON AND EVENING. HE IS AOX1 BUT CURRENTLY STATES HES AT THE HOSPITAL AFTER FREQUENT REMINDERS THRROUGH THE DAY OF WHERE HE IS. DAUGHTERS AT BEDSIDE THIS EVENING. DR STRINGER ORDERED CONSULT THIS AM WITH DR VALENTE.FAXED ORDERS SENT TO HIS OFFICE THIS AM. PATIENT TOLERATING ALL PO MEDICATIONS AT THIS TIME. BED IN LOW POSITION, BED ALARM ON. PATIENT DOES NOT CALL AND NOT ATTEMPTING TO GET OUT OF BED TODAY.
[2023-04-10] VITALS (25 sets, daily range): BP systolic 81–131; BP diastolic 39–78
--- NOTE | 2023-04-10 04:00 | NUR ---
SHIFT SUMMARY 77 YR M ADMITTED ON 04/07/23. FULL CODE. NO ACUTE CHANGES THIS SHIFT. PT HAD DAUGHTERS AT BEDSIDE AT BEGINNING OF SHIFT. HE IS A&O TO SELF, FAMILY, AND WHERE HE IS. HE EASILY SWALLOWED HIS MEDS W/ WATER AND DOES NOT APPEAR TO HAVE ANY ISSUES SWALLOWING. HE ASKED FOR HIS CPAP BEFORE GOING TO SLEEP. BUT WITHIN A COUPLE OF HOURS HE HAD TAKEN IT OFF AND DID NOT WANT TO PUT IT BACK ON. HE HAS HAD NO C/O PAIN OR DISCOMFORT THIS SHIFT AND IS VERY PLEASANT. HE HAS SLEPT FOR MOST OF THE NIGHT. BED IN LOW POSITION AND CALL LIGHT IN REACH.
[2023-04-10 06:15] LABS: Hematocrit 25.3 % (37.0-53.0); Hemoglobin 7.5 g/dL (13.5-17.5)
[2023-04-10 06:36] LABS: Albumin, Blood 1.8 g/dL (3.4-5.0); Anion Gap 7 mmol/L (6-16); Blood Urea Nitrogen 98 mg/dL (8-24); Bun/Creatinine Ratio 13.9 (12.0-20.0); CO2, Blood 31 mmol/L (21-32); Chloride, Blood 94 mmol/L (98-108); Creatinine, Blood 7.03 mg/dL (0.60-1.20); Glomerular Filtration Rate 8 (60-); Glucose, Blood 113 mg/dL (70-99); Magnesium, Blood 2.2 mg/dL (1.6-2.4); Phosphorus, Blood 5.2 mg/dL (2.5-4.9); Potassium, Blood 4.5 mmol/L (3.5-5.5); Sodium, Blood 132 mmol/L (136-145)
[2023-04-10] MEDS ORDERED: Albumin (Human) 25gm/100ml 100 ML IV SCH (07:30)
[2023-04-10] MEDS ORDERED: Anticoagulant Sod Citrate Soln 3 ML SYR INJ PRN (07:30)
--- NOTE | 2023-04-10 12:10 | NUR ---
1200- PT CRYING AND EXPRESSING THAT HE WOULD LIKE TO AND AND STOP "ALL THIS STUFF." RN CALLED PT'S DAUGHTER AYSHA AND ASKED HER TO COME VISIT. AYSHA AND DAVID (OTHER DAUGHTER) ARE VISITING TODAY. PT INFORMED FAMILY WILL BE VISITING. RN TO PLACE PALLIATIVE CARE CONSULT IF THERE IS NOT ONE PLACED ALREADY.
[2023-04-10] MEDS ORDERED: NS 1,000 ML IV ONE ×2 (13:44→14:21)
[2023-04-10] MEDS ORDERED: Nitroglycerin 2 MG/20 ML BTL ONE (13:44)
[2023-04-10] MEDS ORDERED: Heparin Sodium 1000 Units/ML 10ML MDV ONE ×2 (13:44→14:21)
[2023-04-10] MEDS ORDERED: FentaNYL Citrate 50 MCG/ML 2 ML Injection ONE (14:21)
[2023-04-10] MEDS ORDERED: Midazolam HCl 1MG / ML 2ML Vial ONE (14:21)
--- NOTE | 2023-04-10 14:55 | NUR ---
Called to see pt by dialysis nurse. They state he has been making statements of wanting to and stop dialysis. pt was resting and eating lunch. he is fatigued but as assessed by nursing more alert after dialysis. pt wanted me to hold his hand and comfort him. Did some diversion therapy we dtlked about his young live and hunting and fishing and the work he did in his young life. he is having some increased charonic pain. He needs a fistulla revision. He may not tolerate it well. He seems to be griving. He has expressed on past visits missing his . SHe was in memory care. Dialysis staff sense he may not want to do dialysis much longer. Will follow up with family.
--- NOTE | 2023-04-10 17:13 | NUR ---
Pt returned from intervention. Pt is sleeping and fatigued from intervention and dialysis. Nursing reviewed pt care needs with family. We hada discussion about prognosis. Daughter relays that he was full court press a few days ago and wanted to continue treatment. Daughter stated he asked about his he did not remember she had . He was distraught. She states started seeing emotional decline. Pt is [facility] with caregive and equipment beneftis. They plan to take him home. Reviewed code status, she states he had a cardiac event earlier this year and had a brief episode of cpr. She sates he would not want that again or a ventilator. She will talk with him and fill out a polst. kps score 40%. We discussed at some point hospice care for dignity and comfort.
--- NOTE | 2023-04-10 18:47 | NUR ---
SUMMARY- PT AAOX1 THIS MORNING BEFORE DIALYSIS, BUT AAOX2-3 AFTER DIALYSIS. PALLIATIVE CARE CONTACTED POLST, EOL QUESTIONS, AND FUTURE PLANNING. PT GIVEN TYLENOL FOR BACK PAIN TODAY AND ZYPREXA FOR ANXIETY AFTER DIALYSIS. BEDREST. X2 ASSIST IN BED FOR BED CHANGES. LIFT PT.
[2023-04-11] VITALS (19 sets, daily range): BP systolic 84–130; BP diastolic 42–68
[2023-04-11 05:38] LABS: Hematocrit 27.7 % (37.0-53.0); Hemoglobin 8.1 g/dL (13.5-17.5); Mean Corpuscular HGB 27.2 pg (26.0-34.0); Mean Corpuscular HGB Conc 29.2 g/dL (31.5-36.5); Mean Corpuscular Volume 93 fL (80-100); Mean Platelet Volume 9.7 fL (9.1-12.4); Platelet Count 341 K/mm3 (150-400); RDW Coefficient Variation 16.9 % (11.7-14.2); RDW Standard Deviation 56.6 fL (35.1-46.3); Red Blood Cell Count 2.98 M/mm3 (4.30-5.90); White Blood Cell Count 7.69 K/mm3 (4.00-11.30)
[2023-04-11 06:06] LABS: Albumin, Blood 2.2 g/dL (3.4-5.0); Anion Gap 3 mmol/L (6-16); Blood Urea Nitrogen 82 mg/dL (8-24); Bun/Creatinine Ratio 13.1 (12.0-20.0); CO2, Blood 33 mmol/L (21-32); Calcium, Blood 10.7 mg/dL (8.5-10.1); Chloride, Blood 98 mmol/L (98-108); Creatinine, Blood 6.26 mg/dL (0.60-1.20); Glomerular Filtration Rate 9 (60-); Glucose, Blood 116 mg/dL (70-99); Magnesium, Blood 2.3 mg/dL (1.6-2.4); Phosphorus, Blood 4.8 mg/dL (2.5-4.9); Potassium, Blood 4.5 mmol/L (3.5-5.5); Sodium, Blood 134 mmol/L (136-145)
--- NOTE | 2023-04-11 09:07 | NUR ---
SHIFT SUMMARY PT IS LETHARGIC AT BEGINNING OF SHIFT, THIS RN HAD TO STERNAL RUB TO HAVE PT OPEN EYES. PT NOT TALKING, HE IS MAKING SOUNDS. VSS ON 2L NC AND CPAP WITH 2L BLEED IN WHILE ASLEEP. CONTINUE WITH Q4 VITAL SIGNS. REPOSITIONED TOLERATED. SLEPT T/O NOC, WOKE AT 0500, A&OX3 AND PLEASANT. PT IS OLIGURIC, NO BM THIS SHIFT. C/O PAIN IN HIS BACK, MANAGED WITH TYLENOL. BED IN LOWEST POSITIONED, CALL LIGHT WITHIN REACH. NOOB THIS SHIFT.
[2023-04-11] MEDS ORDERED: OxyCODONE 5 mg/Acetamin 325 mg TABLET PO PRN (11:05)
--- NOTE | 2023-04-11 19:04 | NUR ---
SHIFT SUMMARY: NO ACUTE EVENTS. HAD DIALYSIS TODAY, TOLERATED WELL. HAS A&O X 3 ALL DAY, NO S/S OF ENCEPHALOPATHY OR OBTUNDATION. C/O 12/05 CHRONIC BACK PAIN DURING DIALYSIS; TYLENOL GIVEN WHEN HE RETURNED AND DR. CRUM NOTIFIED, RECEIVED TELEPHONE ORDER FOR PERCOCET PT HAS BEEN ON PRISON OPIOIDS. PAIN IS ADEQUATELY CONTROLLED AT TIME OF THIS NOTE. O2 @ 2-3 L/MIN NC, CPAP AND OXIMETRY AT BEDSIDE. INCONTINENT OF BOWEL, HAD SEVERAL LOOSE STOOLS TODAY. PHYSICAL THERAPY ATTEMPTED TO WORK WITH PT, BUT HE WAS UNABLE TO CONTINUE DUE BOWEL ISSUES.
[2023-04-12 03:54] VITALS: BP 118/48
[2023-04-12 05:50] LABS: Hematocrit 26.5 % (37.0-53.0); Hemoglobin 7.6 g/dL (13.5-17.5)
[2023-04-12 06:14] LABS: Albumin, Blood 2.1 g/dL (3.4-5.0); Anion Gap 3 mmol/L (6-16); Blood Urea Nitrogen 69 mg/dL (8-24); Bun/Creatinine Ratio 13.1 (12.0-20.0); CO2, Blood 33 mmol/L (21-32); Calcium, Blood 10.6 mg/dL (8.5-10.1); Chloride, Blood 97 mmol/L (98-108); Creatinine, Blood 5.27 mg/dL (0.60-1.20); Glomerular Filtration Rate 11 (60-); Glucose, Blood 104 mg/dL (70-99); Magnesium, Blood 2.3 mg/dL (1.6-2.4); Phosphorus, Blood 3.4 mg/dL (2.5-4.9); Potassium, Blood 3.9 mmol/L (3.5-5.5); Sodium, Blood 133 mmol/L (136-145)
--- NOTE | 2023-04-12 06:22 | NUR ---
SHIFT SUMMARY ;NOC PT A/O X 4. PLEASANT AND COOPERATIVE WITH CARE. NO ACUTE CHANGES TO REPORT. PT ON O2 1L/NC AND MAINTAINING SPO2 > 92%. PT HAS FISTULA IN [place] AND HAS DIALYSIS TODAY. PT WEARING CPAP FOR SLEEP. VSS. CBG Q6H CHECK, 0000 98 AND PT HAS NO COVERAGE. PT DISCHARGE PENDING DELIVERY OF MEDICAL EQUIPMENT TO [facility]. SHWETA HERNANDEZ CALLED FOR UPDATE ON PT. SHE WOULD LIKE CALL FOR UPDATE AFTER DR STRINGER AND DAY PROVIDER HAVE SEEN PT HER NUMBER IS . PT IS CURRENTLY RESTING WITH BED IN LOWEST POSITION, AND CALL LIGHT WITHIN REACH.
[2023-04-12 07:40] VITALS: BP 123/49
[2023-04-12 13:43] VITALS: BP 105/46
--- NOTE | 2023-04-12 15:32 | NUR ---
Spoke with pt's daughters Khloe and Meghna several times today regarding plan of care and discharge. They both state they're ready to begin the process of taking pt home. However, they're not ready yet. According to CC, the patient is ready for discharge, and can return to [facility] in the meantime. The daughters don't seem to grasp that discharge is tomorrow, and when I told them this is what the CC note states, they continued to state they don't want the patient to return to , but can't take him home until they get more "training and assistance". Even though this has been explained to them, I feel sure the daughters will express surprise at discharge.
[2023-04-12 15:55] VITALS: BP 116/50
--- NOTE | 2023-04-12 18:25 | NUR ---
SHIFT SUMMARY: NO ACUTE EVENTS. A&O X 4 TODAY, WAS LOOKING FORWARD TO GOING HOME BUT D/C ON HOLD WHILE FINAL DETAILS OF HOME CARE ARE SORTED OUT. TOLERATING RENAL DIET. DID NOT HAVE DIALYSIS TODAY. BM'S HAVE SLOWED DOWN, IS INCONTINENT. NO NARCOTIC PAIN MEDS GIVEN THIS SHIFT, AND PT DID NOT REQUEST THEM. WORKED WITH PT/OT.
[2023-04-12 19:22] VITALS: BP 121/96
[2023-04-13] VITALS (17 sets, daily range): BP systolic 78–138; BP diastolic 39–103
[2023-04-13 04:58] LABS: Hematocrit 24.1 % (37.0-53.0); Hemoglobin 7.1 g/dL (13.5-17.5)
--- NOTE | 2023-04-13 05:49 | NUR ---
SHIFT SUMMARY NOC PT A/O X 4. PLEASANT AND COOPERATIVE WITH CARE. NO ACUTE EVENTS TO REPORT. PT ON 2L/NC O2 SPO2 > 92% WHILE AWAKE AND ON CPAP FOR SLEEPING MAINTAINING SPO2 %. PT HAS DIALYSIS SCHEDULED FOR TODAY WITH DISCHARGE HOME WITH DAUGHTERS. DC WILL PROVIDE TRANSPORTATION AND ALL DME HAS BEEN DELIVERED IN PREPARATION FOR DISCHARGE. PT WILL GO HOME WITH HOME HEALTH TRAINING PROVIDED BY [employer] FOR BOTH DAUGHTERS WHO ARE PT'S PAID CAREGIVERS. DC WILL ALSO PROVIDE TRANSPORTATION TO DIALYSIS AT [facility]. PT HGB 7.1 THIS AM. PT IS CURRENTLY RESTING WITH BED IN LOWEST POSITION, AND CALL LIGHT WITHIN REACH.
[2023-04-13 05:53] LABS: Anion Gap 5 mmol/L (6-16); Blood Urea Nitrogen 92 mg/dL (8-24); Bun/Creatinine Ratio 14.5 (12.0-20.0); CO2, Blood 32 mmol/L (21-32); Calcium, Blood 10.7 mg/dL (8.5-10.1); Chloride, Blood 97 mmol/L (98-108); Creatinine, Blood 6.34 mg/dL (0.60-1.20); Glomerular Filtration Rate 9 (60-); Glucose, Blood 107 mg/dL (70-99); Magnesium, Blood 2.3 mg/dL (1.6-2.4); Phosphorus, Blood 3.9 mg/dL (2.5-4.9); Potassium, Blood 4.3 mmol/L (3.5-5.5); Sodium, Blood 134 mmol/L (136-145)
[2023-04-13] MEDS ORDERED: Anticoagulant Sod Citrate Soln 3 ML SYR INJ PRN (07:20)
--- NOTE | 2023-04-13 11:16 | NUR ---
LATE ENTRY 0830: PT TO DIALYSIS VIA BED TRANSFER. 0930: DC ORDERS RECEIVED. PT STILL AT DIALYSIS.
[2023-04-13] MEDS ORDERED: PANT40 PO (11:35)
[2023-04-13] MEDS ORDERED: Percocet 5-3251 EACH PO (11:36)
[2023-04-13] MEDS ORDERED: METO25ER PO (11:41)
[2023-04-13 13:00] LABS: Influenza A, PCR NEGATIVE (NEGATIVE); Influenza B, PCR NEGATIVE (NEGATIVE); Resp Syncytial Virus, PCR NEGATIVE (NEGATIVE); SARS-Cov-2 (COVID-19) PCR, MMC NEGATIVE (NEGATIVE)
--- NOTE | 2023-04-13 16:46 | NUR ---
DC TO [facility] PIV DC'D WITH CATH TIP INTACT, NO REDNESS OR SWELLING NOTED. TWICE ATTEMPTED TO CALL REPORT TO RECEIVING RN AT [phone], PUT ON HOLD THE 1ST TIME, 2ND ATTEMPT NO ANSWER AT ABOVE NUMBER. PT TRANSFERRED BY MED TRANSPORT VIA GURNEY WITH ALL PERSONAL BELONGS. DC PKT GIVEN TO TRANSPORT PERSONNEL TO GIVE TO FACILITY STAFF.
== END 2023-04-13 16:26 | DRG 37 ==
LOC: ER 14:30 → ERHOLD 14:31 → MEDS 14:31 → ENPENDDIS 04-13 09:38 → MEDS 04-13 16:26
PROVIDERS: Family Medicine; Internal Medicine; Internal Medicine Nephrology; Student in an Organized Health Care Education/Training Program; ADMIT Student in an Organized Health Care Education/Training Program
PROC: 5A1D70Z Performance of Urinary Filtration, Intermittent, Less than 6 Hours Per Day (ICD-10-PCS; 2023-04-07)
PROC: 05763ZZ Dilation of Left Subclavian Vein, Percutaneous Approach (ICD-10-PCS; principal; 2023-04-10)
PROC: B51W1ZZ Fluoroscopy of Dialysis Shunt/Fistula using Low Osmolar Contrast (ICD-10-PCS; 2023-04-10)
PROC: 03783ZZ Dilation of Left Brachial Artery, Percutaneous Approach (ICD-10-PCS; 2023-04-10)
DX: G92.8 Other toxic encephalopathy (principal); N18.6 End stage renal disease; S37.092A Other injury of left kidney, initial encounter; T82.898A Other specified complication of vascular prosthetic devices, implants and grafts, initial encounter; I67.82 Cerebral ischemia; E87.1 Hypo-osmolality and hyponatremia; N25.81 Secondary hyperparathyroidism of renal origin; I13.2 Hypertensive heart and chronic kidney disease with heart failure and with stage 5 chronic kidney disease, or end stage renal disease; E87.3 Alkalosis; D62 Acute posthemorrhagic anemia; I67.9 Cerebrovascular disease, unspecified; Z99.2 Dependence on renal dialysis; E87.5 Hyperkalemia; E11.22 Type 2 diabetes mellitus with diabetic chronic kidney disease; E83.52 Hypercalcemia; D63.1 Anemia in chronic kidney disease; G47.33 Obstructive sleep apnea (adult) (pediatric); N49.2 Inflammatory disorders of scrotum; E78.5 Hyperlipidemia, unspecified; I50.9 Heart failure, unspecified; S30.22XA Contusion of scrotum and testes, initial encounter; H70.13 Chronic mastoiditis, bilateral; E86.9 Volume depletion, unspecified; J44.9 Chronic obstructive pulmonary disease, unspecified; I95.9 Hypotension, unspecified; F32.A Depression, unspecified; E03.9 Hypothyroidism, unspecified; K21.9 Gastro-esophageal reflux disease without esophagitis; N40.0 Benign prostatic hyperplasia without lower urinary tract symptoms; Z99.81 Dependence on supplemental oxygen; E83.39 Other disorders of phosphorus metabolism; M54.50 Low back pain, unspecified; G89.29 Other chronic pain; F11.90 Opioid use, unspecified, uncomplicated; E11.42 Type 2 diabetes mellitus with diabetic polyneuropathy; V49.3XXA Car occupant (driver) (passenger) injured in unspecified nontraffic accident, initial encounter; Y84.1 Kidney dialysis as the cause of abnormal reaction of the patient, or of later complication, without mention of misadventure at the time of the procedure; Z98.890 Other specified postprocedural states; Z79.02 Long term (current) use of antithrombotics/antiplatelets; Z79.899 Other long term (current) drug therapy; Z91.048 Other nonmedicinal substance allergy status; Z86.79 Personal history of other diseases of the circulatory system; Z11.52 Encounter for screening for COVID-19; Z87.891 Personal history of nicotine dependence
CPT/HCPCS: 0241U; 36415; 36430; 36907; 70450; 76937; 80053; 80069; 82803; 82947; 83735; 84100; 84439; 84443; 85014; 85018; 85025; 85027; 86850; 86900; 86901; 86923; 93005; 93010; 93990; 94660; 94760; 94762; 96374; 96375; 97110; 97129; 97162; 97165; 97530; 99152; 99153; 99285-25; A9270; C1725; C1769; C1887; C1894; G0378; J0881; J1644; J1790; J2250; J2310; J3010; J7030; J7120; P9016; P9047; Q9967

== ENCOUNTER 2023-04-16 11:20 | Emergency (ER) | payer OTHER ==
[~2023-04-16] VITALS: Ht 175.3 cm; Wt 105.7 kg
[~2023-04-16 11:20] MED LIST changes: +FOLIC ACID0.4 MG PO; +METO25ER PO; +OXYC10TA19 PO
[2023-04-16 12:17] LABS: BASOPHILS ABSOLUTE AUTO 0.05 K/mm3 (0.00-0.23); BASOPHILS PERCENT AUTO 1 % (0-2); EOSINOPHILS ABSOLUTE AUTO 0.24 K/mm3 (0.00-0.68); EOSINOPHILS PERCENT AUTO 3 % (0-6); Hematocrit 27.1 % (37.0-53.0); Hemoglobin 8.1 g/dL (13.5-17.5); IMMATURE GRAN ABSOLUTE AUTO 0.05 K/mm3 (0.00-0.10); IMMATURE GRAN PERCENT AUTO 1 % (0-1); LYMPHOCYTES ABSOLUTE AUTO 0.73 K/mm3 (0.84-5.20); LYMPHOCYTES PERCENT AUTO 8 % (21-46); MONOCYTES ABSOLUTE AUTO 0.69 K/mm3 (0.16-1.47); MONOCYTES PERCENT AUTO 7 % (4-13); Mean Corpuscular HGB Conc 29.9 g/dL (31.5-36.5); Mean Corpuscular Volume 94 fL (80-100); Mean Platelet Volume 9.9 fL (9.1-12.4); NEUTROPHILS ABSOLUTE AUTO 7.52 K/mm3 (1.96-9.15); NEUTROPHILS PERCENT AUTO 81 % (41-73); NRBC ABSOLUTE 0.02 K/mm3 (0.00-0.02); NRBC Auto 0.2 /100 WBC (0.0-0.2); Platelet Count 308 K/mm3 (150-400); RDW Coefficient Variation 16.8 % (11.7-14.2); RDW Standard Deviation 56.4 fL (35.1-46.3); Red Blood Cell Count 2.89 M/mm3 (4.30-5.90); White Blood Cell Count 9.28 K/mm3 (4.00-11.30)
[2023-04-16] MEDS ORDERED: Polyethylene Glycol 3350 17 gm PO ONE (12:25)
[2023-04-16 12:43] LABS: Albumin/Globulin Ratio 0.4 (0.8-1.8); Bilirubin, Total 0.3 mg/dL (0.1-1.0); Bun/Creatinine Ratio 15.6 (12.0-20.0); Calcium, Blood 10.6 mg/dL (8.5-10.1); Creatinine, Blood 5.98 mg/dL (0.60-1.20); Globulin, Blood 5.3 g/dL (2.2-4.0); Total Protein, Blood 7.3 g/dL (6.4-8.2)
[2023-04-16] MEDS ORDERED: SENNA LAXATIVE8.6 MG PO (13:50)
[2023-04-16] MEDS ORDERED: CONSTULOSE10 GM/155 PO (13:50)
[2023-04-16 15:17] VITALS: BP 150/60
== END 2023-04-16 16:19 | disposition home or self-care (01) ==
LOC: ER 11:20
PROVIDERS: Student in an Organized Health Care Education/Training Program
DX: K59.00 Constipation, unspecified (principal); T40.2X5A Adverse effect of other opioids, initial encounter; I12.0 Hypertensive chronic kidney disease with stage 5 chronic kidney disease or end stage renal disease; E11.22 Type 2 diabetes mellitus with diabetic chronic kidney disease; N18.6 End stage renal disease; Z99.2 Dependence on renal dialysis; E78.5 Hyperlipidemia, unspecified; E03.9 Hypothyroidism, unspecified; K21.9 Gastro-esophageal reflux disease without esophagitis; N40.0 Benign prostatic hyperplasia without lower urinary tract symptoms; E20.811 Secondary hypoparathyroidism in diseases classified elsewhere; G47.33 Obstructive sleep apnea (adult) (pediatric); E11.42 Type 2 diabetes mellitus with diabetic polyneuropathy; Z87.19 Personal history of other diseases of the digestive system; Z87.891 Personal history of nicotine dependence; J44.9 Chronic obstructive pulmonary disease, unspecified; Z79.02 Long term (current) use of antithrombotics/antiplatelets; Z79.82 Long term (current) use of aspirin; Z79.899 Other long term (current) drug therapy; Z88.8 Allergy status to other drugs, medicaments and biological substances; Z91.048 Other nonmedicinal substance allergy status
CPT/HCPCS: 80053; 85025; 99284

== ENCOUNTER 2023-06-21 15:24 | Emergency (ER) | payer OTHER ==
[~2023-06-21] VITALS: Ht 175.3 cm; Wt 105.7 kg
[~2023-06-21 15:24] MED LIST changes: +BUME1 PO; +CONSTULOSE10 GM/155 PO; +Calcium Carbon500 MG PO; +LEVOTHYROXINE88 MC9 PO; +MICONAZOLE NITR85 GM TOP; +Metoprolol Tart25 MG PO; +ONDA4 PO; +ONDA4ODT MM; +PROTEIN PO; +SENNA LAXATIVE8.6 MG PO; +VANCOCIN HCL125 MG PO; +[UNRECOGNIZED DRUG - OTHER] PO
[2023-06-21 15:51] VITALS: BP 120/66
[2023-06-21 18:38] LABS: BASOPHILS ABSOLUTE AUTO 0.02 K/mm3 (0.00-0.23); BASOPHILS PERCENT AUTO 0 % (0-2); EOSINOPHILS ABSOLUTE AUTO 0.18 K/mm3 (0.00-0.68); EOSINOPHILS PERCENT AUTO 3 % (0-6); Hematocrit 25.6 % (37.0-53.0); Hemoglobin 7.4 g/dL (13.5-17.5); IMMATURE GRAN ABSOLUTE AUTO 0.04 K/mm3 (0.00-0.10); IMMATURE GRAN PERCENT AUTO 1 % (0-1); LYMPHOCYTES ABSOLUTE AUTO 1.24 K/mm3 (0.84-5.20); LYMPHOCYTES PERCENT AUTO 20 % (21-46); MONOCYTES ABSOLUTE AUTO 0.59 K/mm3 (0.16-1.47); MONOCYTES PERCENT AUTO 9 % (4-13); Mean Corpuscular HGB 28.4 pg (26.0-34.0); Mean Corpuscular HGB Conc 28.9 g/dL (31.5-36.5); Mean Corpuscular Volume 98 fL (80-100); Mean Platelet Volume 9.3 fL (9.1-12.4); NEUTROPHILS PERCENT AUTO 67 % (41-73); Platelet Count 340 K/mm3 (150-400); RDW Coefficient Variation 16.4 % (11.7-14.2); RDW Standard Deviation 58.6 fL (35.1-46.3); Red Blood Cell Count 2.61 M/mm3 (4.30-5.90); White Blood Cell Count 6.27 K/mm3 (4.00-11.30)
[2023-06-21 18:55] LABS: Albumin, Blood 2.1 g/dL (3.4-5.0); Albumin/Globulin Ratio 0.4 (0.8-1.8); Bilirubin, Total 0.4 mg/dL (0.1-1.0); Bun/Creatinine Ratio 13.6 (12.0-20.0); Calcium, Blood 9.9 mg/dL (8.5-10.1); Creatinine, Blood 3.45 mg/dL (0.60-1.20); Globulin, Blood 5.3 g/dL (2.2-4.0); Potassium, Blood 4.7 mmol/L (3.5-5.5); Total Protein, Blood 7.4 g/dL (6.4-8.2)
[2023-06-26] MEDS ORDERED: Lipitor80 MG PO (00:59)
== END 2023-06-21 21:53 | disposition home or self-care (01) ==
LOC: ER 15:24
PROVIDERS: Emergency Medicine
DX: I12.0 Hypertensive chronic kidney disease with stage 5 chronic kidney disease or end stage renal disease (principal); E11.22 Type 2 diabetes mellitus with diabetic chronic kidney disease; N18.6 End stage renal disease; Z99.2 Dependence on renal dialysis; Z88.8 Allergy status to other drugs, medicaments and biological substances; Z79.899 Other long term (current) drug therapy; Z79.82 Long term (current) use of aspirin; E03.9 Hypothyroidism, unspecified; K21.9 Gastro-esophageal reflux disease without esophagitis; E11.42 Type 2 diabetes mellitus with diabetic polyneuropathy
CPT/HCPCS: 80053; 85025; 99284